=== PATIENT | male | born 1955 | race Caucasian/White ===

== ENCOUNTER 2024-07-25 10:47 | Outpatient (CLI) | payer MEDICARE, BC, SELFPAY | END 2024-07-25 10:48 | disposition home or self-care (01) | PROVIDERS: PCP Registered Nurse; Visit Provider Registered Nurse | DX: Z00.00 Encounter for general adult medical examination without abnormal findings (principal); E03.9 Hypothyroidism, unspecified; E78.5 Hyperlipidemia, unspecified; I10 Essential (primary) hypertension; D75.1 Secondary polycythemia; R97.20 Elevated prostate specific antigen [PSA]; M10.9 Gout, unspecified; Z12.5 Encounter for screening for malignant neoplasm of prostate | CPT/HCPCS: 80048; 80061; 84439; 84443; 84550; G0103 ==

== ENCOUNTER 2024-07-30 17:24 | Outpatient (CLI) | payer MEDICARE, BC, SELFPAY | END 2024-07-30 17:25 | disposition home or self-care (01) | LOC: AMB 08-02 03:43 | PROVIDERS: PCP Registered Nurse; Visit Provider Emergency Medicine | DX: R53.1 Weakness (principal) | CPT/HCPCS: A0425; A0427 ==

== ENCOUNTER 2024-07-30 17:54 | Inpatient (IN) | payer MEDICARE, BC, SELFPAY ==
[2024-07-30] VITALS (25 sets, daily range): BP systolic 109–147; BP diastolic 71–96; PULSE 101–121; RESP 20–24; TEMP 36.9–39.8; O2SAT 91–96; BMI 31.1
--- NOTE | 2024-07-30 18:11 | ED_ITS ---
HPI - General Adult General Date Seen: 07/30/24 Chief complaint: Weakness Stated complaint: Weakness Time Seen by Provider: 07/30/24 18:10 History of Present Illness HPI narrative: 69-year-old gentleman brought to the ER today by EMS for evaluation of weakness and feeling ill. He is noted to be febrile to a temperature of 105? F by temporal thermometer. 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 Per clinic records he saw Dr. Castro in February 2023 for a checkup and med manag ement. According to those notes he does not drive and relies on his neighbor to bring him medications and food. No family support. History of alcoholism, not currently drinking at that time. Wheelchair-bound due to ataxia. He had a checkup in clinic 07/25/24. Was apparently out of his Synthroid. Taking his other meds. Labs showed WBC of 10.3, hemoglobin 18.5 He he is brought to the ER today by EMS. Apparently his neighbors, who check on him to bring him food found in today very weak and confused. History for the patient is that he says ?I think I am having a stroke. ?. It sounds like he says generalized (but nonfocal ) weakness beginning a few days ago, possibly on Sunday. A I and we note that he has a fever. He does not know how long it has been going on. He knows that he is in the [facility] [address] any knows that the month is July but does not know the day of the week. He he is not able to answer many questions are described as good story of his illness. When asked directly he says he does not have a headache. He does not have chest pain. He does not have any trouble breathing. He has not have a sore throat. No cough. No abdominal pain. He has been nauseous but no vomiting. He notes that his urine has been giving him problems since last week. It sounds like he has been having either urinary retention or urinary hesitancy. He thinks his urine has been a normal caller. He does not think he has been having any diarrhea. No known falls. He does not take any anticoagulants. History from Neighbor/Friend Nicho Was normal on Sunday to go to annual check up. seemed weak since sunday with multiple ground level falls. neighbors have had to help him up on Sunday. increasing, weakness. generally still sharp mind but has been more confused this weekend. Neighbor has financial power of state's attorney, but not medical POA. Related Data Previous Rx's ?Medication ?Instructions ?Recorded allopurinol 300 mg tablet 300 mg PO DAILY #90 tabs 07/25/24 amlodipine 10 mg tablet 10 mg PO DAILY #90 tabs 07/25/24 hydrochlorothiazide 25 mg tablet 25 mg PO DAILY #90 tabs 07/25/24 potassium chloride 10 mEq 20 meq (2 x 10 mEq) PO QDAY #180 07/25/24 capsule,extended release caps rosuvastatin 10 mg tablet 10 mg PO QPM #90 tabs 07/25/24 Allergies Allergy/AdvReac Type Severity Reaction Status Date / Time No Known Allergies Allergy Unknown Unknown Verified 07/25/24 10:16 [facility] Medical History Chronic kidney disease (CKD) stage G3b/A1, moderately decreased glomerular filtration rate (GFR) between 30-44 mL/min/1.73 square meter and albuminuria creatinine ratio less than 30 mg/g ?N18.32 - Chronic kidney disease, stage 3b (ICD-10) 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 (ICD-10) Multiple lacunar infarcts ?I63.81 - Other cerebral infarction due to occlusion or stenosis of small artery (ICD-10) Hypertensive emergency without congestive heart failure ?I16.1 - Hypertensive emergency (ICD-10) 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 ?G31.2 - Degeneration of nervous system due to alcohol (ICD-10) ?F10.20 - Alcohol dependence, uncomplicated (ICD-10) Alcoholic encephalopathy ?G31.2 - Degeneration of nervous system due to alcohol (ICD-10) Hypothyroid ?E03.9 - Hypothyroidism, unspecified (ICD-10) Gout ?M10.9 - Gout, unspecified (ICD-10) Hyperlipidemia ?E78.5 - Hyperlipidemia, unspecified (ICD-10) Hypertension ?I10 - Essential (primary) hypertension (ICD-10) Social History Narrative: Single, no kids, 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, 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, nonsmoker, gets assistance from his neighbors Smoking Status: Never smoker Do you use any of these nicotine containing products: None How often do you have a drink containing alcohol: never How often do you have six or more drinks on one occasion: Never AUDIT-C Alcohol total score: 0 Non-prescribed substance use: denies use Little interest or pleasure in doing things: not at all Feeling down, depressed, or hopeless: not at all Exam Const: Vital Signs, click to edit/add: Vital Signs - 24 hr 07/30/24 18:06 07/30/24 18:10 07/30/24 18:33 Temperature 103.6 F H Pulse Rate 121 H Pulse Rate [Right Pulse Oximeter] 119 H Respiratory Rate 20 Blood Pressure 127/88 Blood Pressure [Ri ght Upper Arm] 147/91 H Pulse Oximetry 96 95 Oxygen Delivery Me thod Room Air 07/30/24 18:34 07/30/24 18:46 07/30/24 19:10 Temperature Pulse Rate 115 H 114 H 119 H Pulse Rate [Right Pulse Oximeter] Respiratory Rate Blood Pressure Blood Pressure [Ri ght Upper Arm] Pulse Oximetry 94 94 93 Oxygen Delivery Me thod 07/30/24 19:15 07/30/24 19:17 07/30/24 19:30 Temperature Pulse Rate 115 H 114 H 112 H Pulse Rate [Right Pulse Oximeter] Respiratory Rate Blood Pressure 141/96 H Blood Pressure [Ri ght Upper Arm] Pulse Oximetry 95 96 95 Oxygen Delivery Me thod 07/30/24 19:31 07/30/24 19:32 07/30/24 19:45 Temperature Pulse Rate 112 H 112 H 112 H Pulse Rate [Right Pulse Oximeter] Respiratory Rate Blood Pressure 124/80 Blood Pressure [Ri ght Upper Arm] Pulse Oximetry 95 95 93 Oxygen Delivery Me thod Course Vital Signs Vital signs: Initial Vital Signs Pulse Rate 119 H 07/30/24 18:06 Respiratory Rate 20 07/30/24 18:06 Blood Pressure 147/91 H 07/30/24 18:06 Blood Pressure Mean 109 H 07/30/24 18:06 Blood Pressure Position Sitting 07/30/24 18:06 Pulse Oximetry 96 07/30/24 18:06 Oxygen Delivery Method Room Air 07/30/24 18:06 Vital Signs Pulse Rate 119 H 07/30/24 18:06 Respiratory Rate 20 07/30/24 18:06 Blood Pressure 147/91 H 07/30/24 18:06 Pulse Oximetry 96 07/30/24 18:06 Oxygen Delivery Method Room Air 07/30/24 18:06 Temperature 103.6 F H 07/30/24 18:10 Pulse Rate 112 H 07/30/24 19:45 Respiratory Rate 20 07/30/24 18:06 Blood Pressure 124/80 07/30/24 19:31 Pulse Oximetry 93 07/30/24 19:45 Oxygen Delivery Method Room Air 07/30/24 18:06 Medications Administered Medications: Generic Name Dose Route Start Last Admin Trade Name Freq PRN Reason Stop Dose Admin Potassium Bicarbonate 25 meq 07/30/24 20:31 07/30/24 20:39 Potassium Bicarb 25 Meq Effervescent Tab PO 07/30/24 20:32 25 meq ONCE ONE Administration Discontinued Medications Generic Name Dose Route Start Last Admin Trade Name Freq PRN Reason Stop Dose Admin Acetaminophen 1,000 mg 07/30/24 18:29 07/30/24 19:10 Acetaminophen 500 Mg Tablet PO 07/30/24 18:30 1,000 mg ONCE ONE Administration Folic Acid 1 mg 07/30/24 18:32 07/30/24 19:48 Folic Acid 5 Mg/Ml Inj IV 07/30/24 18:33 1 mg ONCE ONE Administration Ceftriaxone Sodium 2 gm/ 100 mls @ 200 mls/hr 07/30/24 18:29 07/30/24 19:40 Sodium Chloride IVPB 07/30/24 18:30 Infused ONCE ONE Infusion Sodium Chloride 1,000 mls @ 1,000 mls/hr 07/30/24 18:30 07/30/24 19:48 0.9 % Sodium Chloride 1000 Ml IV 07/30/24 19:29 Infused .Q1H UBALDO Infusion Thiamine HCl 250 mg/ Sodium 102.5 mls @ 102.5 mls/hr 07/30/24 18:33 07/30/24 19:47 Chloride IVPB 07/30/24 18:34 102.5 mls/hr ONCE ONE Administration Medical Decision Making MDM Narrative Medical decision making narrative: 69-year-old gentleman presenting to the ER today by EMS from his home for evaluation of confusion, generalized weakness, and fever. History is somewhat limited here because of the patient's confusion but it sounds like he has probably been sick for 4 or 5 days home. He has a history of Wernicke-Korsakoff syndrome, cerebellar ataxia, and relies on his neighbors for food and medications. Apparently they came to check on him today and found him abnormal so the ambulance brought him in here. 1. Fever. Suspect likely infection and sepsis. Urinalysis is abnormal and would suspect urosepsis. Started on Rocephin 2 g IV here in the ER. No prior urine cultures to guide antimicrobial therapy selection. Blood culture pending. At this point protocol is to obtain 1 blood culture per patient due to current severe shortage of blood culture test bottles. Laboratory workup shows leukocytosis. He has a fever and tachycardia and leukocytosis and does meet SIRS criteria. Blood pressure is normal. No hypotension or shock. Venous lactic is 2.4, elevated but not alarming. Repeat lactic after IV fluids is improved to 0.9. In addition to antibiotics to treat his infection, I have also ordered IV fluids. Estimated weight is 100 kg. I ordered initial 2 L bolus. He also received an additional L with his thiamine and folate. COVID negative. Chest x-ray negative. No abdominal pain. Did seem to have a mildly protuberant abdomen, but not tympanic. With history of liver disease consider possible ascites or SBP. On my bedside ultrasound though, no ascites is visualized. 2. Neuro. Does have seeming confusion. It is not clear what his baseline is. However, although it sounds like he is able to function at home alone. He only relies on his neighbor's so they can help him drive and bring him food. He does have some confusion here which I suspect represents an acute delirium. Head CT negative Sodium 134. Glucose 142. Anion gap is mildly wide 16. Bicarb slightly low at 19. 3. potassium low at 2.8. IV potassium and oral potassium supplements ordered here in the ER. QT interval normal at 436. 4. EKG shows sinus tachycardia with a right bundle-branch block. No hypoxia. Suspect tachycardia is related to fever and sepsis. 5. Liver: has h/o alcohol abuse. Apparently sober for years. Alcohol negative. No terminal a sinus to suggest alcohol withdrawal. Without clear history here we did also add on thiamine and folate. LFTs show mildly abnormal bilirubin at 1.9. AST of 60.. INR is normal. 6. Cardiac. Presented with sinus tachycardia. Denies any chest pain. EKG shows right bundle but no definite ischemia. Troponin negative. 7. His neighbor cameron and low as are his closest support. They are not medical power of state's attorney but they do have financial power of state's attorney. They bring him food and medicine. They help him pain his bills. They help him feed his cats. They will come visit him tomorrow. Discussed with hospitalist, Dr. Thorne. She will accept the patient for admission at 8:45 p.m.. She request that we add on an additional blood culture- ordered. Also add on magnesium level-ordered. Lab Data Labs: Lab Results 07/30/24 07/30/24 07/30/24 Range/Units 18:28 18:28 18:33 WBC 20.53 H (4.50-11.00) K/uL RBC 6.15 H (4.30-5.90) m/uL Hgb 18.0 H (13.5-17.5) gm/dL Hct 53.9 H (37.0-53.0) % MCV 88 (80-100) fL MCH 29 (26-34) pg MCHC 33 (32-36) gm/dL RDW Coeff of Zoe 14.7 (11.5-15.5) % Plt Count 171 (140-440) K/uL Neut % (Auto) 90.0 H (42.0-72.0) % Lymph % (Auto) 2.8 L (20-44) % [place] % (Auto) 6.8 (0.0-11.0) % Eos % (Auto) 0.0 (0.0-7.0) % Baso % (Auto) 0.0 (0.0-3.0) % Neut # (Auto) 18.50 H (1.7-7.0) K/uL Lymph # (Auto) 0.60 L (0.90-2.90) K/uL [place] # (Auto) 1.40 H (0.00-0.90) K/UL Eos # (Auto) 0.00 (0.00-0.50) K/uL Baso # (Auto) 0.00 (0.00-0.30) K/uL Abs Immat Gran (auto) 0.10 (0.00-0.30) K/uL Imm/Tot Granulo (auto) 0.4 % INR 1.06 (0.91-1.10) Sodium 134 L (135-149) mmol/L Potassium 2.8 L* (3.6-5.1) mmol/L Chloride 99 (96-114) mmol/L Carbon Dioxide 19 L (20-32) mmol/L Anion Gap 16 H (7-15) mEq/L BUN 32 H (7-30) mg/dL Creatinine 1.9 H (0.5-1.5) mg/dL Estimated GFR 38 ml/min Glucose 142 H (60-115) mg/dL Lactate 2.4 H (0.5-1.9) mmol/L Calcium 9.9 (8.4-10.6) mg/dL Total Bilirubin 1.9 H (0.1-1.5) mg/dL AST 60 H (12-35) U/L ALT 23 (4-50) U/L Alkaline Phosphatase 103 (40-150) U/L Ammonia 11.0 L (13.1-30.0) umol/L Troponin I 0.01 (0.01-0.04) ng/mL Total Protein 7.8 (6.0-8.3) g/dL Albumin 4.7 (3.3-5.0) g/dL Urine Color (Yellow) Urine Appearance (Clear) Urine pH (5.0-8.5) Ur Specific Roosevelt (1.000-1.030) Urine Protein (Negative) Urine Glucose (UA) (Negative) Urine Ketones (Negative) Urine Blood (Negative) Urine Nitrite (Negative) Urine Bilirubin (Negative) Urine Urobilinogen (0.2-1.0) Ur Leukocyte Esterase (Negative) Urine RBC (0-2) Urine WBC (0-5) Ur Squamous Epith Cells (None-Few) Urine Bacteria (None) Ethyl Alcohol Cancelled < 0.01 L SARS-CoV-2 (PCR) (Negative) Influenza Type A (PCR) (Negative) Influenza Type B (PCR) (Negative) POC Troponin I 0.04 (0.01-0.04) ng/ml 07/30/24 07/30/24 07/30/24 Range/Units 18:41 18:47 20:13 WBC (4.50-11.00) K/uL RBC (4.30-5.90) m/uL Hgb (13.5-17.5) gm/dL Hct (37.0-53.0) % MCV (80-100) fL MCH (26-34) pg MCHC (32-36) gm/dL RDW Coeff of Zoe (11.5-15.5) % Plt Count (140-440) K/uL Neut % (Auto) (42.0-72.0) % Lymph % (Auto) (20-44) % [place] % (Auto) (0.0-11.0) % Eos % (Auto) (0.0-7.0) % Baso % (Auto) (0.0-3.0) % Neut # (Auto) (1.7-7.0) K/uL Lymph # (Auto) (0.90-2.90) K/uL [place] # (Auto) (0.00-0.90) K/UL Eos # (Auto) (0.00-0.50) K/uL Baso # (Auto) (0.00-0.30) K/uL Abs Immat Gran (auto) (0.00-0.30) K/uL Imm/Tot Granulo (auto) % INR (0.91-1.10) Sodium (135-149) mmol/L Potassium (3.6-5.1) mmol/L Chloride (96-114) mmol/L Carbon Dioxide (20-32) mmol/L Anion Gap (7-15) mEq/L BUN (7-30) mg/dL Creatinine (0.5-1.5) mg/dL Estimated GFR ml/min Glucose (60-115) mg/dL Lactate 0.9 (0.5-1.9) mmol/L Calcium (8.4-10.6) mg/dL Total Bilirubin (0.1-1.5) mg/dL AST (12-35) U/L ALT (4-50) U/L Alkaline Phosphatase (40-150) U/L Ammonia (13.1-30.0) umol/L Troponin I (0.01-0.04) ng/mL Total Protein (6.0-8.3) g/dL Albumin (3.3-5.0) g/dL Urine Color Yellow (Yellow) Urine Appearance Clear (Clear) Urine pH 7.0 (5.0-8.5) Ur Specific [place] 1.020 (1.000-1.030) Urine Protein 3+ A (Negative) Urine Glucose (UA) Negative (Negative) Urine Ketones Negative (Negative) Urine Blood 3+ A (Negative) Urine Nitrite Negative (Negative) Urine Bilirubin Negative (Negative) Urine Urobilinogen 2.0 A (0.2-1.0) Ur Leukocyte Esterase 1+ A (Negative) Urine RBC 2-5 A (0-2) Urine WBC 25-50 A (0-5) Ur Squamous Epith Cells None (None-Few) Urine Bacteria Few A (None) Ethyl Alcohol SARS-CoV-2 (PCR) Negative SARS-CoV-2 (Negative) Influenza Type A (PCR) Negative PCR FLU A (Negative) Influenza Type B (PCR) Negative PCR FLU B (Negative) POC Troponin I (0.01-0.04) ng/ml Imaging Data Chest x-ray: Attestation: I have reviewed the pertinent imaging results. My impression: poor inspiration. no definite infiltrate Radiologist's impression: IMPRESSION: 1. Small lung volumes are noted with mild bibasilar atelectasis. CT scan - head: Attestation: I have reviewed the pertinent imaging results. Radiologist's impression: IMPRESSION: IMPRESSION:1. No CT evidence of acute cortical infarct. No acute intracranial hemorrhage. No other acute intracranial findings. ECG Data Attestation: I personally reviewed and interpreted this ECG as follows: Interpretation: Sinus tachycardia Rate: 119 WY: 196 QRS axis: Left axis deviation. Right bundle branch block pattern ST segment/T wave: Possible ST depression V1-V5 although could be discordant from large terminal R-wave in those leads to due his bundle-branch block. QTc: 436 Discharge Plan Discharge Clinical Impression: Acute UTI, Sepsis, Altered mental status, Acute hypokalemia Prescriptions: No Action rosuvastatin 10 mg tablet 10 mg PO QPM Qty: 90 3RF hydrochlorothiazide 25 mg tablet 25 mg PO DAILY Qty: 90 3RF amlodipine 10 mg tablet 10 mg PO DAILY Qty: 90 3RF allopurinol 300 mg tablet 300 mg PO DAILY Qty: 90 3RF potassium chloride 10 mEq capsule, extended release 20 meq PO QDAY Qty: 180 3RF Follow Up/Referrals: Shonda Olvera, AVAYA ENGINEER [Primary Care Provider] - Procedures Ultrasound FAST exam #1: Areas examined: Saldaña's pouch, spleno-renal access and Pouch of Jovani Indications: other (Fever, history of liver disease, evaluate for ascites) Exam type: limited abdominal ultrasound Finding: other (No free peritoneal fluid) Impression: normal exam Description/Findings: Negative for ascites or free peritoneal fluid.
--- NOTE | 2024-07-30 18:28 | CRLHL7_ITS ---
For Patients: As a result of the Cures Act, medical imaging exams and procedure reports are released immediately into your electronic medical record. You may view this report before your referring provider. If you have questions, please contact your health care provider. INDICATION: Fever TECHNIQUE: Chest radiograph 2 views COMPARISON: None FINDINGS: Mediastinum: The mediastinum is normal in appearance. The heart silhouette is normal in size and morphology. Lung: Small lung volumes are noted with mild bibasilar atelectasis. No sign of pleural effusion seen. No pneumothorax is identified. Bone and Soft tissue: Unremarkable for age. IMPRESSION: 1. Small lung volumes are noted with mild bibasilar atelectasis. Dictated by Alejandro Camp MD @ 07/30/2024 7:56:27 PM Dictated by: Alejandro Camp MD @ 07/30/2024 19:56:30 (Electronically Signed)
--- NOTE | 2024-07-30 18:28 | CRLHL7_ITS ---
For Patients: As a result of the Cures Act, medical imaging exams and procedure reports are released immediately into your electronic medical record. You may view this report before your referring provider. If you have questions, please contact your health care provider. INDICATION: Fever and altered mental status. TECHNIQUE: CT of the head without contrast. Coronal and sagittal reformats are included. COMPARISON: Brain MRI from 07/09/2019. FINDINGS: No CT evidence of acute cortical infarct. No loss of beasley white matter differentiation. No hyperdense vessels to suggest intracranial thrombus. No acute intracranial hemorrhage. No mass effect or midline shift. No hydrocephalus or extra-axial collections. Patchy white matter and central brainstem hypoattenuation, typical for chronic microvascular ischemic change. Anterior parafalcine ossification. No acute osseous abnormalities. Mastoid air cells and paranasal sinuses are clear. Normal soft tissues. IMPRESSION: IMPRESSION:1. No CT evidence of acute cortical infarct. No acute intracranial hemorrhage. No other acute intracranial findings. Please note that all CT scans at this facility use dose modulation, iterative reconstruction, and/or weight-based dosing when appropriate to reduce radiation dose to as low as reasonably achievable. Dictated by Dionte Jimenez MD @ 07/30/2024 7:47:49 PM (Electronically Signed)
[2024-07-30 18:35] LABS: Troponin, Point-of-Care* 0.04 ng/ml (0.01-0.04)
[2024-07-30 18:38] LABS: Lactate Sepsis w/Reflex* 2.4 mmol/L (0.5-1.9)
[2024-07-30] MEDS: 0.9 % SODIUM CHLORIDE 1000 ml 1,000 ML IV (18:40)
[2024-07-30 18:42] LABS: Hematocrit 53.9 % (37.0-53.0); Immature Granulocytes Pct Auto 0.4 %; Lymphocytes Percent Auto 2.8 % (20-44); Mean Corpuscular HGB Conc 33 gm/dL (32-36); Mean Corpuscular Hemoglobin 29 pg (26-34); Mean Corpuscular Volume 88 fL (80-100); Monocytes Percent Auto 6.8 % (0.0-11.0); Platelet Count* 171 K/uL (140-440); RDW Coefficient of Variation % 14.7 % (11.5-15.5); Red Blood Count 6.15 m/uL (4.30-5.90); White Blood Count* 20.53 K/uL (4.50-11.00)
[2024-07-30 18:49] LABS: Slide Review Reflex No
[2024-07-30 18:50] LABS: INR 1.06 (0.91-1.10); Prothrombin Time 14.5 Seconds
[2024-07-30 18:52] LABS: Ethanol* < 0.01 % (0.01-0.03)
[2024-07-30 19:03] LABS: Appearance Urine Clear (Clear); Bilirubin Urine Negative (Negative); Blood Urine 3+ (Negative); Color Urine Yellow (Yellow); Glucose Urine Negative (Negative); Ketones Urine Negative (Negative); Leukocyte Esterase Urine 1+ (Negative); Nitrite Urine Negative (Negative); Protein Urine 3+ (Negative)
[2024-07-30 19:04] LABS: Troponin I* 0.01 ng/mL (0.01-0.04)
[2024-07-30] MEDS: ACETAMINOPHEN 500 MG TABLET 1000 MG PO (19:10)
[2024-07-30] MEDS: cefTRIAXone 2 GM in 0.9 % SODIUM CHLORIDE Mini-bag 100 ML IVPB (19:12)
[2024-07-30 19:20] LABS: Bacteria Urine Few; WBC Urine 25-50 (0-5)
[2024-07-30 19:25] LABS: PCR FLU A Negative PCR FLU A (Negative); PCR FLU B Negative PCR FLU B (Negative); SARS PCR* Negative SARS-CoV-2 (Negative)
--- NOTE | 2024-07-30 19:28 | ED.NURSE ---
Crews catheter placed, pt tolerated well. Urine output of 100cc.
[2024-07-30] MEDS: THIAMINE 250 MG in 0.9 % SODIUM CHLORIDE 100 ml 100 ML 102.5 MG IVPB (19:47)
[2024-07-30 20:15] LABS: Lactate Sepsis 2 Hour 0.9 mmol/L (0.5-1.9)
[2024-07-30 20:18] LABS: Chloride* 99 mmol/L (96-114)
[2024-07-30 20:19] LABS: Albumin* 4.7 g/dL (3.3-5.0); Sodium* 134 mmol/L (135-149)
[2024-07-30 20:21] LABS: Anion Gap 16 mEq/L (7-15); Bilirubin Total* 1.9 mg/dL (0.1-1.5); Carbon Dioxide* 19 mmol/L (20-32); Creatinine* 1.9 mg/dL (0.5-1.5); Estimated Glomerular Filt Rate 38 ml/min; Total Protein* 7.8 g/dL (6.0-8.3)
[2024-07-30 20:22] LABS: Alanine Aminotransferase* 23 U/L (4-50); Alkaline Phosphatase* 103 U/L (40-150); Aspartate Amino Transferase* 60 U/L (12-35); Blood Urea Nitrogen* 32 mg/dL (7-30); Calcium* 9.9 mg/dL (8.4-10.6); Glucose* 142 mg/dL (60-115)
[2024-07-30 20:25] LABS: Potassium* 2.8 mmol/L (3.6-5.1)
[2024-07-30] MEDS: POTASSIUM BICARB 25 MEQ EFFERVESCENT TAB PO ×2 (20:39→22:31)
[2024-07-30] MEDS: POTASSIUM CHLORIDE 10 MEQ/100 ML PIGGYBACK 100 MEQ IVPB (20:49)
[2024-07-30 21:11] LABS: Magnesium* 1.6 mg/dL (1.5-2.6)
--- NOTE | 2024-07-30 21:21 | PM.IMHP1 ---
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 No corroboration from caregivers. The best we can figure out is that Daren lives alone but has neighbors, Eugenio and Yeny Linder, who checked on him today and found him weak, febrile and confused. They called EMS. However they did not present to the hospital and have been unreachable this evening. I have left a message as has the ER on their listed phone numbers. Daren is a difficult historian. He states he has been sick for a while. It is difficult to get him to focus and he answers with 1 or 2 words. He states he has not drank in 10 years, however there is H&P from 2019 where he was attempting sobriety. That was the last time he was admitted to [facility]. He does not remember that admission. On his discharge summary it was outline that he had a [place] of 16/30 in July of 2019. He did recently have an office visit with his primary care team. Shonda Olvera CNP saw him 07/25/24. Vitals were stable and it appears it was a well visit. It is known he doesn't drive and is wheel chair bound. She states: He is alert, wheel-chair bound, does not drive. His neighbors help with his cares, grocery shopping, and transportation. He feels that his is doing well, no falls, wonders if all of his medications are necessary since they really don't seem to be doing much. He no longer drinks any alcohol, also denies tobacco, marijuana, or other drug use. History significant for hypothyroid; he has his levothyroxine increased in 02/2024 and was supposed to follow up for repeat blood work, but he never got this done and since then has run out of levothyroxine so hasn't been taking it. He states he has been taking all of his other medications as directed. No gout flares recently Denies any concerns ER COURSE: Blood pressure has been stable throughout. T-max has been 103.6 ? He has been tachycardic He has acute on chronic renal impairment Moderate hypokalemia A UTI He met criteria for severe sepsis CODE STATUS: He states ?I do not know ? EMERGENCY CONTACT PLAN: Apparently Eugenio and Yeny Linder Primary Contact Name Nicho Linder Rel To Pat Friend Work Phone (Patient) [phone] I've updated the PFSH, medications and allergies in the Expanse tabs. INVESTIGATIONS: LABS/MICRO/ECG/IMAGING Arrival vital signs revealed A temp of 103.6? Pulse 104-121 Respiratory rate 16 to 20 Sats 96% on room air 74.8 kilos Labs are significant for an elevated white blood cell count at 20.53, 90% neutrophils Hemoglobin is 18.0 Platelet counts 171 INR 1.06 Electrolytes reveal a mild hyponatremia at 134, glucose 142. Creatinine 1.9 from a 1.6 baseline. BUN 32. Carbon dioxide/bicarb is low at 19. He has an anion gap barely at 16. Lactate was 2.4 and after fluid resuscitation down to 0.9 Notably his potassium was 2.8 with a low normal magnesium at 1.6 AST 60 with a normal ALT and alk-phos Ammonia level 11 Undetectable trop Normal protein and albumin UA is yellow with 3+ protein, 3+ blood, 1+ leukocyte esterase, negative nitrite. Urine white blood cells 25-50. Alcohol undetectable Negative COVID and influenza Head CT 1. No CT evidence of acute cortical infarct. No acute intracranial hemorrhage. No other acute intracranial findings. Chest x-ray Small lung volumes are noted with mild bibasilar atelectasis. REVIEW OF SYSTEMS: 12-point ROS completed with patient and negative unless otherwise stated in HPI or below. PHYSICAL EXAM: CONSTITUTIONAL: NAD, using remote to channel surf, poor eye contact/poor engagement. simple answers. denies any major concerns. VITAL SIGNS: see record. HEENT: Normocephalic, atraumatic. PERRL, EOMI, conjunctivae pink, no scleral icterus. Ears and nose externally normal. Pharynx normal. NECK: No JVD. No carotid bruit, no thyromegaly, no adenopathy. CHEST: Clear to auscultation bilaterally HEART: S1 and S2 normal. No harsh murmurs. Edema minimal. MUSCULOSKELETAL: No gross joint deformity or swelling. Can move legs on command. NEURO: Cranial nerves intact. Grossly intact. No asymmetric findings. SKIN: No rashes, petechiae, concerning changes PSYCHIATRIC: Euthymic. ADMIT TO MEDSURG: FLOOR CARE DVT: Lovenox GI: PO intake, PPI Time spent: Today I spent 75 minutes seeing the patient, discussing the patient with ER staff, reviewing Expanse and EPIC notes/diagnostics, discussing the care plan with our care time that includes social work, PT/OT, pharmacy, RT, half-way and documenting my impressions and plan in the medical record. 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 (ICD-10) Hypertensive emergency without congestive heart failure ?I16.1 - Hypertensive emergency (ICD-10) 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 ?G31.2 - Degeneration of nervous system due to alcohol (ICD-10) ?F10.20 - Alcohol dependence, uncomplicated (ICD-10) Alcoholic encephalopathy ?G31.2 - Degeneration of nervous system due to alcohol (ICD-10) Hypothyroid ?E03.9 - Hypothyroidism, unspecified (ICD-10) Gout ?M10.9 - Gout, unspecified (ICD-10) Hyperlipidemia ?E78.5 - Hyperlipidemia, unspecified (ICD-10) Hypertension ?I10 - Essential (primary) hypertension (ICD-10) Social History Narrative: Single, no kids, retired [employer], 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, nonsmoker, gets assistance from his neighbors Smoking Status: Never smoker Do you use any of these nicotine containing products: None How often do you have a drink containing alcohol: never How often do you have six or more drinks on one occasion: Never AUDIT-C Alcohol total score: 0 Non-prescribed substance use: denies use Little interest or pleasure in doing things: not at all Feeling down, depressed, or hopeless: not at all Meds Home Medications and Allergies Allergies Allergy/AdvReac Type Severity Reaction Status Date / Time No Known Allergies Allergy Unknown Unknown Verified 07/25/24 10:16 Exam Const: Vital Signs, click to edit/add: Vital Signs - 24 hr 07/30/24 18:06 07/30/24 18:10 07/30/24 18:33 Temperature 103.6 F H Pulse Rate 121 H Pulse Rate [Right Pulse Oximeter] 119 H Respiratory Rate 20 Blood Pressure 127/88 Blood Pressure [Ri ght Upper Arm] 147/91 H Pulse Oximetry 96 95 Oxygen Delivery Me thod Room Air 07/30/24 18:34 07/30/24 18:46 07/30/24 19:10 Temperature Pulse Rate 115 H 114 H 119 H Pulse Rate [Right Pulse Oximeter] Respiratory Rate Blood Pressure Blood Pressure [Ri ght Upper Arm] Pulse Oximetry 94 94 93 Oxygen Delivery Me thod 07/30/24 19:15 07/30/24 19:17 07/30/24 19:30 Temperature Pulse Rate 115 H 114 H 112 H Pulse Rate [Right Pulse Oximeter] Respiratory Rate Blood Pressure 141/96 H Blood Pressure [Ri ght Upper Arm] Pulse Oximetry 95 96 95 Oxygen Delivery Me thod 07/30/24 19:31 07/30/24 19:32 07/30/24 19:45 Temperature Pulse Rate 112 H 112 H 112 H Pulse Rate [Right Pulse Oximeter] Respiratory Rate Blood Pressure 124/80 Blood Pressure [Ri ght Upper Arm] Pulse Oximetry 95 95 93 Oxygen Delivery Me thod 07/30/24 20:00 07/30/24 20:01 07/30/24 20:15 Temperature Pulse Rate 109 H 110 H 108 H Pulse Rate [Right Pulse Oximeter] Respiratory Rate Blood Pressure 111/72 Blood Pressure [Ri ght Upper Arm] Pulse Oximetry 92 92 92 Oxygen Delivery Me thod 07/30/24 20:30 07/30/24 20:31 07/30/24 20:44 Temperature 100.4 F H Pulse Rate 104 H 104 H Pulse Rate [Right Pulse Oximeter] Respiratory Rate Blood Pressure 109/71 Blood Pressure [Ri ght Upper Arm] Pulse Oximetry 91 92 Oxygen Delivery Me thod 07/30/24 20:45 09/25/24 21:11 Temperature Pulse Rate 103 H Pulse Rate [Right Pulse Oximeter] Respiratory Rate 22 Blood Pressure Blood Pressure [Ri ght Upper Arm] Pulse Oximetry 94 Oxygen Delivery [facility] Hospitalist - H&P: Result Labs Labs: Short CBC 07/30/24 Range/Units 18:28 WBC 20.53 H (4.50-11.00) K/uL Hgb 18.0 H (13.5-17.5) gm/dL Hct 53.9 H (37.0-53.0) % Plt Count 171 (140-440) K/uL BMP 07/30/24 18:28 Sodium 134 L Potassium 2.8 L* Chloride 99 Carbon Dioxide 19 L BUN 32 H Creatinine 1.9 H Glucose 142 H Calcium 9.9 Cardiac Enzymes 07/30/24 Range/Units 18:28 Troponin I 0.01 (0.01-0.04) ng/mL Liver Function 07/30/24 Range/Units 18:28 Total Bilirubin 1.9 H (0.1-1.5) mg/dL AST 60 H (12-35) U/L ALT 23 (4-50) U/L Alkaline Phosphatase 103 (40-150) U/L Albumin 4.7 (3.3-5.0) g/dL Urine 07/30/24 Range/Units 18:47 Urine Color Yellow (Yellow) Urine Appearance Clear (Clear) Urine pH 7.0 (5.0-8.5) Ur Specific [place] 1.020 (1.000-1.030) Urine Protein 3+ A (Negative) Urine Glucose (UA) Negative (Negative) Assessment and Plan Assessment and plan (1) Severe sepsis: Problem comment: 2 SIRS criteria easily met (temp, HR, RR) elevated lactate UTI -fluids. Jack. -general support; antibiotics Status: Acute (2) Acute UTI: Problem comment: rocephin 2 grams IV q24 until cultures return fluids jack Status: Acute (3) Altered mental status: Problem comment: -likely mostly baseline cognitive level with mild delirium secondary to fever/infection Status: Acute (4) Acute hypokalemia: Problem comment: oral and IV replacement; follow Status: Acute (5) Wernicke-Korsakoff syndrome: Problem comment: -noted in history -unclear if he is drinking or not; alcohol level zero; checking drug screen. likely baseline dementia/cognitive decline. 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 will add T3 to admit labs. recommend f/u as outpatient Status: Acute (10) Gout: Problem comment: allopurinol 300mg - last filled on 07/14/24 uric acid pending Status: Acute (11) Hyperlipidemia: Problem comment: rosuvastatin 10mg last filled on 07/11/24 Status: Acute (12) Hypertension: Problem comment: hctz, potassium, amlodipine all filled 07/29 Status: Acute (13) Polycythemia: Problem comment: noted previously; outpatient workup Status: Acute
--- NOTE | 2024-07-30 21:29 | ED.NURSE ---
Pt report given to janel RN, pt to room 245.
[2024-07-30 21:56] LABS: HCO3 VBG 25 mmol/L (21-28); PCO2 VBG 32 mmHG (40-50); PO2 VBG 42.6 mmHG (25-47); pH VBG 7.486 (7.32-7.43)
[2024-07-30 22:03] LABS: Amphetamine Screen Urine Negative (Negative); Barbiturate Screen Urine Negative (Negative); Benzodiazepines Screen Urine Negative (Negative); Cannabinoid Screen Urine Negative (Negative); Cocaine Screen Urine Negative (Negative); Methadone Screen Urine Negative (Negative); Methamphetamines Screen Urine Negative (Negative); Opiate Screen Urine Negative (Negative); Oxycodone Screen Urine Negative (Negative); Phencyclidine Screen Urine Negative (Negative); Tricyclic Antidepressant Urine Negative (Negative)
[2024-07-30 22:04] LABS: Hemoglobin A1C* 5.3 % (0-5.6)
[2024-07-30 22:17] LABS: C Reactive Protein* 14.8 mg/dL (0.5-1.0)
[2024-07-30] MEDS: 5 % DEX/0.9 SOD CHL+KCL 20 mEq 1,000 ML 125 ML IV (22:31)
[2024-07-30] MEDS: PANTOPRAZOLE SODIUM 40 MG INJ IVP (22:32)
[2024-07-30] MEDS: ENOXAPARIN 40 MG/0.4 ML INJ SUBCUT (22:32)
[2024-07-31] VITALS (14 sets, daily range): BP systolic 104–137; BP diastolic 64–87; PULSE 91–117; RESP 18–24; TEMP 36.9–39.2; O2SAT 92–98
[2024-07-31] MEDS: ACETAMINOPHEN 325 MG TABLET PO ×3 (04:56→23:42)
[2024-07-31] MEDS: 5 % DEX/0.9 SOD CHL+KCL 20 mEq 1,000 ML 125 ML IV ×3 (05:59→23:52)
[2024-07-31 06:24] LABS: HCO3 VBG 24 mmol/L (21-28); PCO2 VBG 31 mmHG (40-50); PO2 VBG 63.5 mmHG (25-47); pH VBG 7.494 (7.32-7.43)
[2024-07-31 06:27] LABS: Basophils Percent Auto 0.1 % (0.0-3.0); Hematocrit 48.2 % (37.0-53.0); Hemoglobin* 16.2 gm/dL (13.5-17.5); Immature Granulocytes Pct Auto 0.5 %; Lymphocytes Percent Auto 2.7 % (20-44); Mean Corpuscular HGB Conc 34 gm/dL (32-36); Mean Corpuscular Hemoglobin 30 pg (26-34); Mean Corpuscular Volume 88 fL (80-100); Monocytes Percent Auto 8.6 % (0.0-11.0); Neutrophils Percent Auto 88.1 % (42.0-72.0); Platelet Count* 121 K/uL (140-440); RDW Coefficient of Variation % 14.1 % (11.5-15.5); Slide Review Reflex No; White Blood Count* 16.45 K/uL (4.50-11.00)
[2024-07-31] MEDS: OMEPRAZOLE 20 MG CAPSULE DR 40 MG PO (06:48)
[2024-07-31 07:00] LABS: Albumin* 3.7 g/dL (3.3-5.0); Chloride* 104 mmol/L (96-114); Sodium* 135 mmol/L (135-149)
[2024-07-31 07:03] LABS: Alkaline Phosphatase* 79 U/L (40-150); Anion Gap 9 mEq/L (7-15); Aspartate Amino Transferase* 59 U/L (12-35); Bilirubin Direct* 0.4 mg/dL (0.0-0.5); Bilirubin Total* 1.1 mg/dL (0.1-1.5); Blood Urea Nitrogen* 25 mg/dL (7-30); Carbon Dioxide* 22 mmol/L (20-32); Creatinine* 1.6 mg/dL (0.5-1.5); Est. Creatinine Clearance* 41.89; Estimated Glomerular Filt Rate 47 ml/min; Glucose* 159 mg/dL (60-115); Total Protein* 6.3 g/dL (6.0-8.3)
[2024-07-31 07:04] LABS: Alanine Aminotransferase* 21 U/L (4-50); Calcium* 8.6 mg/dL (8.4-10.6); Phosphorus* 1.6 mg/dL (2.5-4.5)
[2024-07-31 07:06] LABS: Potassium* 2.9 mmol/L (3.6-5.1)
[2024-07-31 07:14] LABS: Procalcitonin* 1.57 ng/mL (<0.50)
[2024-07-31] MEDS: POTASSIUM BICARB 25 MEQ EFFERVESCENT TAB 50 MEQ PO (07:51)
--- NOTE | 2024-07-31 08:02 | PC.NURSE ---
END OF SHIFT NOTE: A&O. BYRD IN PLACE AND PATENT. TELE=SINUS TACHYCARDIA. TMAX 100.8 ORALLY; PRN ACETAMINOPHEN ADMINISTERED. PT DENIES PAIN. UNEVENTFUL SHIFT.
[2024-07-31 08:25] LABS: C Reactive Protein* 15.8 mg/dL (0.5-1.0)
--- NOTE | 2024-07-31 11:06 | PM.IMPN1 ---
Progress Note: A&P Assessment and plan (1) Severe sepsis: Problem details: 2 SIRS criteria easily met (temp, HR, RR) elevated lactate UTI -fluids. Jack. -general support; antibiotics 07/30/24: Improved. Still intermittent temperature elevations as high as 100.8. No longer spiking fevers as high as 103.6 as he had on admission. Status: Acute (2) Acute UTI: Problem details: rocephin 2 grams IV q24 until cultures return fluids jack 07/31/24: Continue with current plan. Await urine culture results. Status: Acute (3) Altered mental status: Problem details: -likely mostly baseline cognitive level with mild delirium secondary to fever/infection 07/31/24: Aside from baseline altered speech secondary to prior strokes, mentation is much improved. Status: Acute (4) Acute hypokalemia: Problem details: oral and IV replacement; follow 07/31/24: Continue with replacement and monitoring Status: Acute (5) Wernicke-Korsakoff syndrome: Problem details: -noted in history -unclear if he is drinking or not; alcohol level zero; checking drug screen. likely baseline dementia/cognitive decline. 07/31/24: Patient indicates he has not been drinking alcohol for about 10 years. Patient caregiver and neighbor, Eugenio, corroborates. 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 He reviewed impression and recommendations with patient. Answered his questions. He is agreeable. 2. Discussed likely need for transitional care services with rehabilitation when ready to be discharged from hospital and before he returns home. He is agreeable to this at this time. 3. Discussed the above with patient's neighbor in primary caregiver, Eugenio, who is agreeable. 4. I did discuss with our adoption social worker who will initiate efforts to find appropriate tcu. 5. Bedside swallowing eval today undertaken with recommendation of level 6 diet and drinking from the cup not from a straw. Time Spent With Patient Total time spent: 50 minutes Subjective Date Seen: 07/31/24 Interval history: Hospital day 2. 69-year-old man presented with weakness that had been evolving for the past week, increased number of falls at home, fever. In the course of evaluating him he was found to have a urinary tract infection with sepsis. Was treated with IV fluids and started on IV ceftriaxone. Is difficult to get a substantive history from the patient. A neighbor was checking in on him and called EMS to bring him in for further assessment. We have left messages for a neighbor to call in discussed with us any concerns. We have yet to hear back from the neighbor. The name of the neighbor is Eugenio, and his cell phone number is [phone]. I was able to eventually reach Eugenio at 11:20 a.m. today. Eugenio is the neighbor who lives 1 house away from Daren. Eugenio and his Yeny are Daren's primary caregivers. Mariza is also power of consumer attorney for finances. Daren has not specified a power of consumer attorney for healthcare thus far. Eugenio notes that the patient has become increasingly weak over the last 5-7 days. Eugenio in [place] have had to help Daren after falls on at least 2 occasions over the past week. When they assessed Daren yesterday afternoon they notice that he was even more weak and confused and thus they arranged for EMS to bring him in for further assessment in the hospital. Their concern was that maybe he might be having another stroke. Remarkably Daren indicates he starting to feel little better today. Does not feel as weak. Appetite is improving. Tells me he normally walks with a walker at home. He acknowledges he has had a few more falls over the last week but tells me he is able to get up on his own. Exam Narrative: Exam Narrative: Examine him in his hospital room. Appears comfortable and in no acute distress. Eating and drinking without coughing. While I am able to have a conversation with him, he often answers slowly and not completely. Otherwise is alert and oriented to self, place, in part to time, in part to situation. Lungs are clear to auscultation. No CVA tenderness to percussion. Heart tones with regular rhythm, tachycardia. Abdomen is obese with active bowel sounds, soft, nontender. Extremities with trace edema. Const: Vital Signs, click to edit/add: Vital Signs - 24 hr 07/30/24 18:06 07/30/24 18:10 07/30/24 18:33 Temperature 103.6 F H Pulse Rate 121 H Pulse Rate [Pulse Oximeter] Pulse Rate [Right Pulse Oximeter] 119 H Respiratory Rate 20 Blood Pressure 127/88 Blood Pressure [Le ft Arm] Blood Pressure [Ri ght Upper Arm] 147/91 H Pulse Oximetry 96 95 Oxygen Delivery Me thod Room Air 07/30/24 18:34 07/30/24 18:46 07/30/24 19:10 Temperature Pulse Rate 115 H 114 H 119 H Pulse Rate [Pulse Oximeter] Pulse Rate [Right Pulse Oximeter] Respiratory Rate Blood Pressure Blood Pressure [Le ft Arm] Blood Pressure [Ri ght Upper Arm] Pulse Oximetry 94 94 93 Oxygen Delivery Me thod 07/30/24 19:15 07/30/24 19:17 07/30/24 19:30 Temperature Pulse Rate 115 H 114 H 112 H Pulse Rate [Pulse Oximeter] Pulse Rate [Right Pulse Oximeter] Respiratory Rate Blood Pressure 141/96 H Blood Pressure [Le ft Arm] Blood Pressure [Ri ght Upper Arm] Pulse Oximetry 95 96 95 Oxygen Delivery Me thod 07/30/24 19:31 07/30/24 19:32 07/30/24 19:45 Temperature Pulse Rate 112 H 112 H 112 H Pulse Rate [Pulse Oximeter] Pulse Rate [Right Pulse Oximeter] Respiratory Rate Blood Pressure 124/80 Blood Pressure [Le ft Arm] Blood Pressure [Ri ght Upper Arm] Pulse Oximetry 95 95 93 Oxygen Delivery Me thod 07/30/24 20:00 07/30/24 20:01 07/30/24 20:15 Temperature Pulse Rate 109 H 110 H 108 H Pulse Rate [Pulse Oximeter] Pulse Rate [Right Pulse Oximeter] Respiratory Rate Blood Pressure 111/72 Blood Pressure [Le ft Arm] Blood Pressure [Ri ght Upper Arm] Pulse Oximetry 92 92 92 Oxygen Delivery Me thod 07/30/24 20:30 07/30/24 20:31 07/30/24 20:44 Temperature 100.4 F H Pulse Rate 104 H 104 H Pulse Rate [Pulse Oximeter] Pulse Rate [Right Pulse Oximeter] Respiratory Rate Blood Pressure 109/71 Blood Pressure [Le ft Arm] Blood Pressure [Ri ght Upper Arm] Pulse Oximetry 91 92 Oxygen Delivery Me thod 07/30/24 20:45 07/30/24 21:00 07/30/24 21:02 Temperature Pulse Rate 103 H 101 H 102 H Pulse Rate [Pulse Oximeter] Pulse Rate [Right Pulse Oximeter] Respiratory Rate Blood Pressure 110/72 Blood Pressure [Le ft Arm] Blood Pressure [Ri ght Upper Arm] Pulse Oximetry 94 91 91 Oxygen Delivery Me thod 07/30/24 21:11 07/30/24 21:15 07/30/24 21:25 Temperature 98.4 F Pulse Rate 101 H Pulse Rate [Pulse Oximeter] Pulse Rate [Right Pulse Oximeter] Respiratory Rate 22 24 Blood Pressure Blood Pressure [Le ft Arm] 127/82 Blood Pressure [Ri ght Upper Arm] Pulse Oximetry 91 95 Oxygen Delivery Me thod Room Air 07/30/24 21:52 07/30/24 22:58 07/31/24 00:25 Temperature Pulse Rate Pulse Rate [Pulse Oximeter] Pulse Rate [Right Pulse Oximeter] Respiratory Rate 24 Blood Pressure Blood Pressure [Le ft Arm] Blood Pressure [Ri ght Upper Arm] Pulse Oximetry 95 93 [facility] Room [facility] 07/31/24 00:25 07/31/24 00:25 07/31/24 00:55 Temperature 98.9 F Pulse Rate 116 H Pulse Rate [Pulse Oximeter] 112 H Pulse Rate [Right Pulse Oximeter] Respiratory Rate 20 22 Blood Pressure Blood Pressure [Le ft Arm] 132/80 Blood Pressure [Ri ght Upper Arm] Pulse Oximetry 93 Oxygen Delivery Ar thod Room Air 07/31/24 04:45 07/31/24 04:56 07/31/24 07:00 Temperature 100.8 F H 100.8 F H Pulse Rate Pulse Rate [Pulse Oximeter] 117 H Pulse Rate [Right Pulse Oximeter] Respiratory Rate 20 Blood Pressure Blood Pressure [Le ft Arm] 137/83 Blood Pressure [Ri ght Upper Arm] Pulse Oximetry 92 92 Oxygen Delivery Ar thod Room Air 07/31/24 07:00 07/31/24 07:00 Temperature 99.8 F H Pulse Rate 91 Pulse Rate [Pulse Oximeter] 93 Pulse Rate [Right Pulse Oximeter] Respiratory Rate 18 Blood Pressure Blood Pressure [Le ft Arm] 104/64 Blood Pressure [Ri ght Upper Arm] Pulse Oximetry 92 Oxygen Delivery Ar thod Room Air Labs Labs: Laboratory Results - last 24 hr 07/30/24 07/30/24 07/30/24 18:28 18:28 18:33 WBC 20.53 H RBC 6.15 H Hgb 18.0 H Hct 53.9 H MCV 88 MCH 29 MCHC 33 RDW Coeff of Zoe 14.7 Plt Count 171 Neut % (Auto) 90.0 H Lymph % (Auto) 2.8 L Sibley % (Auto) 6.8 Eos % (Auto) 0.0 Baso % (Auto) 0.0 Neut # (Auto) 18.50 H Lymph # (Auto) 0.60 L Sibley # (Auto) 1.40 H Eos # (Auto) 0.00 Baso # (Auto) 0.00 Abs Immat Gran (auto) 0.10 Imm/Tot Granulo (auto) 0.4 INR 1.06 VBG pH 7.486 H VBG pCO2 32 L VBG pO2 42.6 VBG HCO3 25 Sodium 134 L Potassium 2.8 L* Chloride 99 Carbon Dioxide 19 L Anion Gap 16 H BUN 32 H Creatinine 1.9 H Estimated Creat Clear Estimated GFR 38 Glucose 142 H Hemoglobin A1c 5.3 Lactate 2.4 H Calcium 9.9 Phosphorus Magnesium Total Bilirubin 1.9 H Direct Bilirubin AST 60 H ALT 23 Alkaline Phosphatase 103 Ammonia 11.0 L Troponin I 0.01 C-Reactive Protein 14.8 H Total Protein 7.8 Albumin 4.7 Procalcitonin 0.80 H Urine Color Urine Appearance Urine pH Ur Specific Cutler Urine Protein Urine Glucose (UA) Urine Ketones Urine Blood Urine Nitrite Urine Bilirubin Urine Urobilinogen Ur Leukocyte Esterase Urine RBC Urine WBC Ur Squamous Epith Cells Urine Bacteria Urine Opiates Screen Ur Oxycodone Screen Urine Methadone Screen Ur Barbiturates Screen U Tricyclic Antidepress Ur Phencyclidine Scrn Ur Amphetamines Screen U Methamphetamines Scrn U Benzodiazepines Scrn Urine Cocaine Screen U Marijuana (THC) Screen Ur Drug Screen Comment Ethyl Alcohol Cancelled < 0.01 L SARS-CoV-2 (PCR) Influenza Type A (PCR) Influenza Type B (PCR) Lab Acknowledgement POC Troponin I 0.04 07/30/24 07/30/24 07/30/24 18:41 18:47 20:13 WBC RBC Hgb Hct MCV MCH MCHC RDW Coeff of Zoe Plt Count Neut % (Auto) Lymph % (Auto) Sibley % (Auto) Eos % (Auto) Baso % (Auto) Neut # (Auto) Lymph # (Auto) Sibley # (Auto) Eos # (Auto) Baso # (Auto) Abs Immat Gran (auto) Imm/Tot Granulo (auto) INR VBG pH VBG pCO2 VBG pO2 VBG HCO3 Sodium Potassium Chloride Carbon Dioxide Anion Gap BUN Creatinine Estimated Creat Clear Estimated GFR Glucose Hemoglobin A1c Lactate 0.9 Calcium Phosphorus Magnesium Total Bilirubin Direct Bilirubin AST ALT Alkaline Phosphatase Ammonia Troponin I C-Reactive Protein Total Protein Albumin Procalcitonin Urine Color Yellow Urine Appearance Clear Urine pH 7.0 Ur Specific Cutler 1.020 Urine Protein 3+ A Urine Glucose (UA) Negative Urine Ketones Negative Urine Blood 3+ A Urine Nitrite Negative Urine Bilirubin Negative Urine Urobilinogen 2.0 A Ur Leukocyte Esterase 1+ A Urine RBC 2-5 A Urine WBC 25-50 A Ur Squamous Epith Cells None Urine Bacteria Few A Urine Opiates Screen Ur Oxycodone Screen Urine Methadone Screen Ur Barbiturates Screen U Tricyclic Antidepress Ur Phencyclidine Scrn Ur Amphetamines Screen U Methamphetamines Scrn U Benzodiazepines Scrn Urine Cocaine Screen U Marijuana (THC) Screen Ur Drug Screen Comment Ethyl Alcohol SARS-CoV-2 (PCR) Negative SARS-CoV-2 Influenza Type A (PCR) Negative PCR FLU A Influenza Type B (PCR) Negative PCR FLU B Lab Acknowledgement POC Troponin I 07/30/24 07/30/24 07/30/24 20:37 21:43 Unknown WBC RBC Hgb Hct MCV MCH MCHC RDW Coeff of Zoe Plt Count Neut % (Auto) Lymph % (Auto) Sibley % (Auto) Eos % (Auto) Baso % (Auto) Neut # (Auto) Lymph # (Auto) Sibley # (Auto) Eos # (Auto) Baso # (Auto) Abs Immat Gran (auto) Imm/Tot Granulo (auto) INR VBG pH VBG pCO2 VBG pO2 VBG HCO3 Sodium Potassium Chloride Carbon Dioxide Anion Gap BUN Creatinine Estimated Creat Clear Estimated GFR Glucose Hemoglobin A1c Lactate Calcium Phosphorus Magnesium 1.6 Total Bilirubin Direct Bilirubin AST ALT Alkaline Phosphatase Ammonia Troponin I C-Reactive Protein Total Protein Albumin Procalcitonin Urine Color Urine Appearance Urine pH Ur Specific Cutler Urine Protein Urine Glucose (UA) Urine Ketones Urine Blood Urine Nitrite Urine Bilirubin Urine Urobilinogen Ur Leukocyte Esterase Urine RBC Urine WBC Ur Squamous Epith Cells Urine Bacteria Urine Opiates Screen Negative Ur Oxycodone Screen Negative Urine Methadone Screen Negative Ur Barbiturates Screen Negative U Tricyclic Antidepress Negative Ur Phencyclidine Scrn Negative Ur Amphetamines Screen Negative U Methamphetamines Scrn Negative U Benzodiazepines Scrn Negative Urine Cocaine Screen Negative U Marijuana (THC) Screen Negative Ur Drug Screen Comment See Note Ethyl Alcohol SARS-CoV-2 (PCR) Influenza Type A (PCR) Influenza Type B (PCR) Lab Acknowledgement Test Added POC Troponin I 07/31/24 05:53 WBC 16.45 H RBC 5.50 Hgb 16.2 Hct 48.2 MCV 88 MCH 30 MCHC 34 RDW Coeff of Zoe 14.1 Plt Count 121 L Neut % (Auto) 88.1 H Lymph % (Auto) 2.7 L Sibley % (Auto) 8.6 Eos % (Auto) 0.0 Baso % (Auto) 0.1 Neut # (Auto) 14.50 H Lymph # (Auto) 0.40 L Sibley # (Auto) 1.40 H Eos # (Auto) 0.00 Baso # (Auto) 0.00 Abs Immat Gran (auto) 0.10 Imm/Tot Granulo (auto) 0.5 INR VBG pH 7.494 H VBG pCO2 31 L VBG pO2 63.5 H VBG HCO3 24 Sodium 135 Potassium 2.9 L* Chloride 104 Carbon Dioxide 22 Anion Gap 9 BUN 25 Creatinine 1.6 H Estimated Creat Clear 41.89 Estimated GFR 47 Glucose 159 H Hemoglobin A1c Lactate Calcium 8.6 Phosphorus 1.6 L Magnesium Total Bilirubin 1.1 Direct Bilirubin 0.4 AST 59 H ALT 21 Alkaline Phosphatase 79 Ammonia Troponin I C-Reactive Protein 15.8 H Total Protein 6.3 Albumin 3.7 Procalcitonin 1.57 H Urine Color Urine Appearance Urine pH Ur Specific Cutler Urine Protein Urine Glucose (UA) Urine Ketones Urine Blood Urine Nitrite Urine Bilirubin Urine Urobilinogen Ur Leukocyte Esterase Urine RBC Urine WBC Ur Squamous Epith Cells Urine Bacteria Urine Opiates Screen Ur Oxycodone Screen Urine Methadone Screen Ur Barbiturates Screen U Tricyclic Antidepress Ur Phencyclidine Scrn Ur Amphetamines Screen U Methamphetamines Scrn U Benzodiazepines Scrn Urine Cocaine Screen U Marijuana (THC) Screen Ur Drug Screen Comment Ethyl Alcohol SARS-CoV-2 (PCR) Influenza Type A (PCR) Influenza Type B (PCR) Lab Acknowledgement POC Troponin I
--- NOTE | 2024-07-31 11:18 | NUTR.NU ---
RDN with nutrition screen related to positive skin risk and swallowing issues. Patient admitted for severe sepsis, UTI and altered mental status. Current weight 201lb 6.4oz; height 5ft 7.5 in; BMI 31.1 kg/m2. No reliable weight history recently to assess. Current diet is regular. No meal intakes since admit. Per IDT, patient is wheelchair bound at baseline. Patient has swallow evaluation consult. RDN visited with patient whom reports a good appetite and a stable weight recently. He reports his usual body weight at about 200 lbs. No nutrition interventions at this time with reported good intake and stable weights. RDN will continue to monitor and follow-up prn.
[2024-07-31] MEDS: POTASSIUM CHLORIDE 10 MEQ/100 ML PIGGYBACK 100 MEQ IVPB ×4 (12:41→15:46)
[2024-07-31] MEDS: POTASSIUM CHLORIDE 10 MEQ CAPSULE ER 40 MEQ PO (12:49)
[2024-07-31 15:43] LABS: Potassium* 3.9 mmol/L (3.6-5.1)
[2024-07-31 15:46] LABS: Magnesium* 2.1 mg/dL (1.5-2.6)
--- NOTE | 2024-07-31 15:54 | PC.SOCIAL ---
Discharge planning: Pt. will likely need a SNF when ready for discharge. Facilities near [place] for availability. 1. [facility] [phone], fax#[phone] Has openings and can assess. 2. [facility] Rwfvqt-[phone], Message left on availability 3. [facility]- [phone], Message left on availability
[2024-07-31] MEDS: cefTRIAXone 2 GM in 0.9 % SODIUM CHLORIDE Mini-bag 100 ML IVPB (18:39)
--- NOTE | 2024-07-31 19:52 | PC.NURSE ---
Pt is alert and oriented. Up with ceiling lift to recliner to breakfast. Attempted with max assist two and gait belt to pivot from recliner to bed, but pt knees buckled and pt did not tolerate. Suggested to resume using ceiling lift. Incontinent of bowel in bed, pt states he passes stool in his underwear at home, baseline. Declined lunch and ate one bite of supper. Bed alarm on. Pt had attempted to get out of chair independently but placed in bed with assist of 4. Pt had a fever present at 1300, Tylenol administered, fever resolved. ?
[2024-07-31] MEDS: ENOXAPARIN 40 MG/0.4 ML INJ SUBCUT (20:33)
[2024-08-01] VITALS (13 sets, daily range): BP systolic 108–147; BP diastolic 68–90; PULSE 88–95; RESP 16–24; TEMP 37–39.4; O2SAT 94–98
[2024-08-01] MEDS: OMEPRAZOLE 20 MG CAPSULE DR 40 MG PO (06:00)
--- NOTE | 2024-08-01 06:31 | PC.NURSE ---
: pt remains in bed this shift, pt able to repo indep in bed. Oriented to person & place, mortgage loan underwriter oriented pt and reviewed UTI dx. Crews patent and draining light arlyn urine. Tele ? NSR w/ 1st degree HB & BBB. TMAX 101.2, Tylenol given, fever resolved. Pts linens were moist from sweating while asleep, required new linens and gown, partial bed bath given.
[2024-08-01 07:03] LABS: Chloride* 106 mmol/L (96-114); Potassium* 3.6 mmol/L (3.6-5.1); Sodium* 139 mmol/L (135-149)
[2024-08-01 07:05] LABS: Creatinine* 1.7 mg/dL (0.5-1.5); Est. Creatinine Clearance* 39.42; Estimated Glomerular Filt Rate 44 ml/min
[2024-08-01 07:06] LABS: Anion Gap 9 mEq/L (7-15); Blood Urea Nitrogen* 21 mg/dL (7-30); Carbon Dioxide* 24 mmol/L (20-32); Glucose* 118 mg/dL (60-115)
[2024-08-01 07:07] LABS: Magnesium* 1.8 mg/dL (1.5-2.6); Phosphorus* 2.6 mg/dL (2.5-4.5)
[2024-08-01 07:20] LABS: Hematocrit 50.2 % (37.0-53.0); Hemoglobin* 16.3 gm/dL (13.5-17.5); Mean Corpuscular HGB Conc 33 gm/dL (32-36); Mean Corpuscular Hemoglobin 29 pg (26-34); Mean Corpuscular Volume 90 fL (80-100); Platelet Count* 109 K/uL (140-440); Red Blood Count 5.56 m/uL (4.30-5.90); White Blood Count* 9.54 K/uL (4.50-11.00)
[2024-08-01 07:22] LABS: Slide Review Reflex No
[2024-08-01 07:23] LABS: C Reactive Protein* 15.8 mg/dL (0.5-1.0)
[2024-08-01] MEDS: ACETAMINOPHEN 325 MG TABLET PO (07:58)
[2024-08-01] MEDS: 5 % DEX/0.9 SOD CHL+KCL 20 mEq 1,000 ML 125 ML IV (07:58)
--- NOTE | 2024-08-01 09:34 | PC.SOCIAL ---
Discharge planning: late entry: Attempted to meet with pt on 07/31/24. Pt was too tired to talk with secondary social studies teacher, so secondary social studies teacher called pt's contact, Nicho to discuss discharge plans. Nicho is his neighbor who assists pt with errands, housekeeping and yard work. He states pt is typically independent in his home. Pt has four cats who he is very committed to and neighbor shared that pt is motivated to improve his health to get back to his cats. Neighbor is in agreement with a plan for short term rehab prior to pt returning home. Provided neighbor with a list correction facilities by phone with their department of health ratings. Neighbor states [facility] ideal location as this is closest for neighbors to visit him during his recovery. Called and faxed information to [facility]. Confirmed with Sarah in admitting that they anticipate a bed available on Sunday and will assess pt for this bed. Awaiting decision on admit. finish repair worker to follow up as needed.
--- NOTE | 2024-08-01 12:03 | NUTR.NU ---
RDN with diet education for low fiber/surgical soft diet order. Patient had swallowing evaluation done 07/31 resulting in IDDSI Lvl 6 soft and bite-sized and thin liquids diet recommendations. Current diet order is Low fiber/Surgical soft diet with IDSI Lvl 6 soft and bite-sized texture and thin liquids. Meal intakes today have been 0 and 100%. Patient was NPO yesterday in preparation for swallow evaulation. RDN visited with patient whom reports good appetite. RDN offered diet education related to low fiber/surgical soft diet order, however patient declined. He also declined educational handouts. RDN encouraged patient to let staff know if he has any questions or concerns, or changes his mind regarding diet education. RDN will continue to monitor.
--- NOTE | 2024-08-01 12:16 | P.IMPN_ITS ---
Progress Note: A&P Assessment and plan (1) Severe sepsis: Problem details: 2 SIRS criteria easily met (temp, HR, RR) elevated lactate UTI -fluids. Jack. -general support; antibiotics 07/30/24: Improved. Still intermittent temperature elevations as high as 100.8. No longer spiking fevers as high as 103.6 as he had on admission. Status: Resolved (2) Acute UTI: Problem details: rocephin 2 grams IV q24 until cultures return fluids jack 07/31/24: Continue with current plan. Await urine culture results. 08/01: Proteus mirabilis (as below). BC x 2 no growth. Sensitive to ceftriaxone. Continue ceftriaxone until discharge, then use oral cephalosporin, total 10 days antibiotic. Proteus mirabilis Ur Hector Count >100,000 CFU/ml P mirabili WILY RX --------- --- Ampicillin <=2 S Ampicillin/Sulbactam <=2 S Cefazolin <=4 S Cefepime <=1 S Cefoxitin <=4 S Ceftazidime <=1 S Ceftriaxone <=1 S Ciprofloxacin <=0.25 S Ertapenem <=0.5 S Gentamicin <=1 S Imipenem 2 I Levofloxacin <=0.12 S Nitrofurantoin 128 R Tobramycin <=1 S Trimethoprim/Sulfamethoxazole <=20 S Piperacillin/Tazobactam <=4 S Status: Acute (3) Altered mental status: Problem details: -likely mostly baseline cognitive level with mild delirium secondary to fever/infection 07/31/24: Aside from baseline altered speech secondary to prior strokes, mentation is much improved. 08/01: continues to improve. Status: Acute (4) Acute hypokalemia: Problem details: oral and IV replacement; follow 07/31/24: Continue with replacement and monitoring 08/01: Start low dose daily K supplement. Status: Resolved (5) Wernicke-Korsakoff syndrome: Problem details: -noted in history -unclear if he is drinking or not; alcohol level zero; checking drug screen. likely baseline dementia/cognitive decline. 07/31/24: Patient indicates he has not been drinking alcohol for about 10 years. Patient caregiver and neighbor, Eugenio, corroborates. 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 Monitor. If continues to decrease, hold enoxaparin. Status: Acute (9) Diarrhea: Problem details: check C diff Status: Acute Plan Will need SNF for rehab, patient agreeable, appreciate SW discharge planning. No bed available for patient yet. Appreciate speech therapy's recommendations. I sharp ve amended the diet to reflect these. VTE prophylaxis with low dose enoxaparin. Subjective Date Seen: 08/01/24 Interval history: Daren was working with PT this morning when I saw him. He required help getting to a sitting position in the bed. He said he's had two incontinent stools since admission. He denies any other complaints. He is understanding that he will need rehab prior to going home. Exam Narrative: Exam Narrative: General: No acute distress. Awake, alert, oriented, not very talkative, verbal and motor retardation, one-word answers. Warm to the touch, perspiring. Oropharynx: Clear. Mucous membranes moist. Cardiovascular: Regular rate and rhythm. No murmurs, gallops, or rubs. Respiratory: Clear to auscultation bilaterally. No wheezes or crackles. Abdomen: Bowel sounds present. Soft, nondistended, nontender. Const: Vital Signs, click to edit/add: Vital Signs - 24 hr 07/31/24 12:29 07/31/24 13:23 07/31/24 15:00 Temperature 102.6 F H 102.6 F H Pulse Rate 100 Pulse Rate [Pulse Oximeter] 109 H Respiratory Rate 20 Blood Pressure [Le ft Arm] 121/69 Pulse Oximetry 95 Oxygen Delivery Me thod 07/31/24 15:00 07/31/24 15:00 07/31/24 15:00 Temperature 100.2 F H Pulse Rate Pulse Rate [Pulse Oximeter] 102 H 102 H Respiratory Rate 18 18 Blood Pressure [Le ft Arm] 128/81 Pulse Oximetry 95 95 Oxygen Delivery Me thod Room Air 07/31/24 19:40 07/31/24 22:25 07/31/24 22:51 Temperature 98.5 F Pulse Rate 101 H Pulse Rate [Pulse Oximeter] 102 H Respiratory Rate 20 20 Blood Pressure [Le ft Arm] 125/87 Pulse Oximetry 98 Oxygen Delivery Me thod Room Air 07/31/24 23:00 07/31/24 23:42 07/31/24 23:45 Temperature 101.2 F H Pulse Rate Pulse Rate [Pulse Oximeter] 105 H Respiratory Rate 24 Blood Pressure [Le ft Arm] 111/69 Pulse Oximetry 96 96 Oxygen Delivery Ri thod Room Air 08/01/24 02:02 08/01/24 03:19 08/01/24 06:55 Temperature 100 F H 98.6 F Pulse Rate 94 Pulse Rate [Pulse Oximeter] 88 Respiratory Rate 24 Blood Pressure [Le ft Arm] 111/71 Pulse Oximetry 96 Oxygen Delivery Ri thod Room Air 08/01/24 07:45 08/01/24 07:45 08/01/24 07:58 Temperature 102.9 F H Pulse Rate Pulse Rate [Pulse Oximeter] 95 Respiratory Rate 18 Blood Pressure [Le ft Arm] Pulse Oximetry 97 Oxygen Delivery Ri thod 08/01/24 08:45 Temperature 102.9 F H Pulse Rate Pulse Rate [Pulse Oximeter] 95 Respiratory Rate 18 Blood Pressure [Le ft Arm] 126/85 Pulse Oximetry 97 Oxygen Delivery Ri thod Room Air Labs Labs: Laboratory Results - last 24 hr 07/31/24 08/01/24 15:17 05:59 WBC 9.54 RBC 5.56 Hgb 16.3 Hct 50.2 MCV 90 MCH 29 MCHC 33 Plt Count 109 L Sodium 139 Potassium 3.9 3.6 Chloride 106 Carbon Dioxide 24 Anion Gap 9 BUN 21 Creatinine 1.7 H Estimated Creat Clear 39.42 Estimated GFR 44 Glucose 118 H Calcium 9.0 Phosphorus 2.6 Magnesium 2.1 1.8 C-Reactive Protein 15.8 H
[2024-08-01 13:52] LABS: C.Difficile Negative (Negative); CDIFFEPI 027 PRESUMPTIVE NEGATIVE (Negative)
--- NOTE | 2024-08-01 14:37 | PC.NURSE ---
end of shift; pt has been very pleasant. no pain. he had a fever of 102.9 this am. md aware and tylenol was given. temp down, door open and blankets are off. later temp was 99.0. pt is eating and drinking. he had a jack and later it was d/c. 1300. he is up with 1 assist. PT and OT worked with him. Jack patent and draining light arlyn urine. till d/c and he has to voided since it was d/c. Tele shows 1st degree HB.he had a BM adn it was negative for C-Diff
--- NOTE | 2024-08-01 14:42 | PC.NURSE ---
end of shift. pt has been very pleasant. no pain per pt. temp was 102.9 and he got Tylenol and md was updated. did steps to decrease the temperature. he is eating, drinking and voiding. he was SL today. Eleonora was d/c @ 1300. he is up with SBA to BSC and chair. PT and OT worked with him. Tele shows NSR1st degree HB. he had a BM and C-Diff was negative. one pill at a time. I did crush the Tylenol and gave it with pudding.
--- NOTE | 2024-08-01 16:02 | PC.SOCIAL ---
Discharge planning: Met with pt and neighbors in room regarding d/c plan. Pt is aware and agrees with recommendation for short term rehab stay at discharge and is requesting [facility] in [place]. This is the most convenient facility for neighbors to visit which is important to him. Provided list of nursing homes in the area with Department of Health ratings. Called [facility] and secure emailed pt information to admitting coordinater Sarah. Pt has been accepted for admission pending a review of updated information on Sunday. welfare eligibility worker to follow up as needed. Neighbors state they can provide pt a ride to the facility on Sunday if accepted and that mornings typically work betterfor them for transport. welfare eligibility worker to follow up Sunday as needed.
[2024-08-01] MEDS: POTASSIUM CHLORIDE 10 MEQ CAPSULE ER PO (17:48)
[2024-08-01] MEDS: cefTRIAXone 2 GM in 0.9 % SODIUM CHLORIDE Mini-bag 100 ML IVPB (19:11)
[2024-08-01] MEDS: ENOXAPARIN 40 MG/0.4 ML INJ SUBCUT (21:41)
[2024-08-01] MEDS: SODIUM CHLORIDE 0.9 % (FLUSH) 10 ML SYRINGE 5 ML IVF (21:41)
[2024-08-02] VITALS (11 sets, daily range): BP systolic 100–121; BP diastolic 71–82; PULSE 78–98; RESP 20–23; TEMP 36.6–37.7; O2SAT 93–96
[2024-08-02] MEDS: OMEPRAZOLE 20 MG CAPSULE DR 40 MG PO (05:59)
[2024-08-02 06:32] LABS: Basophils Absolute Auto 0.01 K/uL (0.00-0.30); Basophils Percent Auto 0.2 % (0.0-3.0); Eosinophils Absolute Auto 0.01 K/uL (0.00-0.50); Eosinophils Percent Auto 0.2 % (0.0-7.0); Hematocrit 48.3 % (37.0-53.0); Hemoglobin* 15.7 gm/dL (13.5-17.5); Immature Granulocytes Abs Auto 0.02 K/uL (0.00-0.30); Immature Granulocytes Pct Auto 0.3 %; Lymphocytes Percent Auto 8.5 % (20-44); Mean Corpuscular HGB Conc 33 gm/dL (32-36); Mean Corpuscular Hemoglobin 29 pg (26-34); Mean Corpuscular Volume 89 fL (80-100); Monocytes Percent Auto 11.1 % (0.0-11.0); Neutrophils Percent Auto 79.7 % (42.0-72.0); Platelet Count* 112 K/uL (140-440); RDW Coefficient of Variation % 14.5 % (11.5-15.5); Red Blood Count 5.46 m/uL (4.30-5.90); White Blood Count* 6.21 K/uL (4.50-11.00)
--- NOTE | 2024-08-02 06:39 | PC.NURSE ---
[id number]: Patient w/Wernicke -Korsakoff syndrome pleasant and cooperative. Denies pain. Denies N/V. Temps range from 99.1-99.9 but asymptomatic. Incontinent.
[2024-08-02 06:52] LABS: Slide Review Reflex No
[2024-08-02 06:58] LABS: Chloride* 105 mmol/L (96-114); Potassium* 3.4 mmol/L (3.6-5.1); Sodium* 134 mmol/L (135-149)
[2024-08-02 07:01] LABS: Anion Gap 8 mEq/L (7-15); Blood Urea Nitrogen* 20 mg/dL (7-30); Carbon Dioxide* 21 mmol/L (20-32); Creatinine* 1.5 mg/dL (0.5-1.5); Est. Creatinine Clearance* 44.68; Estimated Glomerular Filt Rate 51 ml/min; Glucose* 90 mg/dL (60-115)
[2024-08-02] MEDS: POTASSIUM CHLORIDE 10 MEQ CAPSULE ER PO (07:52)
[2024-08-02] MEDS: SODIUM CHLORIDE 0.9 % (FLUSH) 10 ML SYRINGE 5 ML IVF ×2 (07:52→21:19)
[2024-08-02 11:28] LABS: Total T3 83 ng/dL (80-200)
--- NOTE | 2024-08-02 13:11 | PM.IMPN1 ---
Progress Note: A&P Assessment and plan (1) Severe sepsis: Problem details: 2 SIRS criteria easily met (temp, HR, RR) elevated lactate UTI -fluids. Jack. -general support; antibiotics 07/30/24: Improved. Still intermittent temperature elevations as high as 100.8. No longer spiking fevers as high as 103.6 as he had on admission. Status: Resolved (2) Acute UTI: Problem details: rocephin 2 grams IV q24 until cultures return fluids jack 07/31/24: Continue with current plan. Await urine culture results. 08/01: Proteus mirabilis (as below). BC x 2 no growth. Sensitive to ceftriaxone. Continue ceftriaxone until discharge, then use oral cephalosporin, total 10 days antibiotic. Proteus mirabilis Ur [place] Count >100,000 CFU/ml P mirabili WILY RX --------- --- Ampicillin <=2 S Ampicillin/Sulbactam <=2 S Cefazolin <=4 S Cefepime <=1 S Cefoxitin <=4 S Ceftazidime <=1 S Ceftriaxone <=1 S Ciprofloxacin <=0.25 S Ertapenem <=0.5 S Gentamicin <=1 S Imipenem 2 I Levofloxacin <=0.12 S Nitrofurantoin 128 R Tobramycin <=1 S Trimethoprim/Sulfamethoxazole <=20 S Piperacillin/Tazobactam <=4 S Status: Acute (3) Altered mental status: Problem details: -likely mostly baseline cognitive level with mild delirium secondary to fever/infection 07/31/24: Aside from baseline altered speech secondary to prior strokes, mentation is much improved. 08/02: improved, appears to be at baseline Status: Resolved (4) Acute hypokalemia: Problem details: oral and IV replacement; follow - Mg on 08/01 was 1.8 07/31/24: Continue with replacement and monitoring 08/01: Start low dose daily K supplement. 08/02: Increase K supplementation Status: Resolved (5) Wernicke-Korsakoff syndrome: Problem details: -noted in history -unclear if he is drinking or not; alcohol level zero; checking drug screen. likely baseline dementia/cognitive decline. 07/31/24: Patient indicates he has not been drinking alcohol for about 10 years. Patient caregiver and neighbor, Eugenio, corroborates. 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 Monitor. Stable. If decreases, may need to hold enoxaparin. Status: Acute (9) Diarrhea: Problem details: - C diff negative; suspect due to antibiotics Status: Acute Plan Will need SNF for rehab, patient agreeable, appreciate SW discharge planning. No bed available for patient yet. VTE prophylaxis with low dose enoxaparin. Subjective Time Seen by Provider: 10:57 Date Seen: 08/02/24 Interval history: Daren has no complaints. He notes he worked with therapy today. Exam Narrative: Exam Narrative: General: No acute distress. Sitting in bedside chair. Awake, alert, oriented, verbal and motor retardation, short answers. Warm to the touch, perspiring. Oropharynx: Clear. Mucous membranes moist. Cardiovascular: Regular rate and rhythm. No murmurs, gallops, or rubs. Respiratory: Clear to auscultation bilaterally. No wheezes or crackles. Abdomen: Bowel sounds present. Soft, nondistended, nontender. Const: Vital Signs, click to edit/add: Vital Signs - 24 hr 08/01/24 14:09 08/01/24 15:24 08/01/24 15:24 Temperature 99.8 F H 98.7 F Pulse Rate Pulse Rate [Pulse Oximeter] 88 Respiratory Rate 18 Blood Pressure [Le ft Arm] 129/82 Pulse Oximetry 98 98 Oxygen Delivery Me thod Room Air 08/01/24 16:36 08/01/24 19:00 08/01/24 23:00 Temperature 98.7 F Pulse Rate 94 89 Pulse Rate [Pulse Oximeter] 94 Respiratory Rate 16 Blood Pressure [Le ft Arm] 147/90 H Pulse Oximetry 94 Oxygen Delivery Me thod Room Air 08/01/24 23:00 08/02/24 00:04 08/02/24 03:00 Temperature 99.6 F 99.9 F H Pulse Rate Pulse Rate [Pulse Oximeter] 98 88 Respiratory Rate 22 20 Blood Pressure [Le ft Arm] 121/82 112/72 Pulse Oximetry 94 94 94 Oxygen Delivery Me thod Room Air Room Air 08/02/24 05:59 08/02/24 07:59 08/02/24 08:30 Temperature 99.1 F 99.6 F Pulse Rate 86 Pulse Rate [Pulse Oximeter] 88 Respiratory Rate 23 Blood Pressure [Le ft Arm] 110/73 Pulse Oximetry 93 Oxygen Delivery Me thod Room Air 08/02/24 08:30 08/02/24 11:29 Temperature 98.7 F Pulse Rate Pulse Rate [Pulse Oximeter] 80 Respiratory Rate 22 Blood Pressure [Le ft Arm] 100/71 Pulse Oximetry 93 93 Oxygen Delivery Me thod Room Air Labs Labs: Laboratory Results - last 24 hr 07/30/24 08/01/24 08/02/24 18:28 12:59 05:55 WBC 6.21 RBC 5.46 Hgb 15.7 Hct 48.3 MCV 89 MCH 29 MCHC 33 RDW Coeff of Zoe 14.5 Plt Count 112 L Neut % (Auto) 79.7 H Lymph % (Auto) 8.5 L [place] % (Auto) 11.1 H Eos % (Auto) 0.2 Baso % (Auto) 0.2 Neut # (Auto) 4.90 Lymph # (Auto) 0.50 L [place] # (Auto) 0.70 Eos # (Auto) 0.01 Baso # (Auto) 0.01 Abs Immat Gran (auto) 0.02 Imm/Tot Granulo (auto) 0.3 Sodium 134 L Potassium 3.4 L Chloride 105 Carbon Dioxide 21 Anion Gap 8 BUN 20 Creatinine 1.5 Estimated Creat Clear 44.68 Estimated GFR 51 Glucose 90 Calcium 9.0 T3 83 Stl C. diff Tox B Gene Negative Stl C. diff [id number] PRESUMPTIVE NEGATIVE
[2024-08-02] MEDS: POTASSIUM BICARB 25 MEQ EFFERVESCENT TAB PO (14:08)
[2024-08-02 14:13] LABS: Potassium* 3.6 mmol/L (3.6-5.1)
--- NOTE | 2024-08-02 15:15 | PC.NURSE ---
Patient alert and oriented x4. Afebrile, NSR with BBB on tele. Ambulates with Ax1 with a walker and gait belt. Had a large BM this shift. Up in the chair for breakfast and lunch.No lunch tray ordered. No skin issues noted this shift.
[2024-08-02] MEDS: POTASSIUM CHLORIDE 10 MEQ CAPSULE ER 20 MEQ PO (19:02)
[2024-08-02] MEDS: cefTRIAXone 2 GM in 0.9 % SODIUM CHLORIDE Mini-bag 100 ML IVPB (19:04)
[2024-08-02] MEDS: ENOXAPARIN 40 MG/0.4 ML INJ SUBCUT (21:16)
--- NOTE | 2024-08-02 21:53 | PC.NURSE ---
Pt VSS. A & O x3. Incontinent of B/B. A1 with walker. Does not report any pain. One low grade temp. noted of 99.5. Waiting for assessment to AL on Sunday.
[2024-08-03 03:00] VITALS: BP 113/76; PULSE 73; RESP 20; TEMP 36.7; O2SAT 91
[2024-08-03] MEDS: OMEPRAZOLE 20 MG CAPSULE DR 40 MG PO (06:11)
--- NOTE | 2024-08-03 06:42 | PC.NURSE ---
End of shift [id number]: A&O pleasant and cooperative. Afebrile overnight and other VSS. Turn and repo. Pt calls when wet. Denies pain. Bed alarm in place. ?
--- NOTE | 2024-08-03 07:45 | P.IMPN_ITS ---
Progress Note: A&P Assessment and plan (1) Severe sepsis: Problem details: 2 SIRS criteria easily met (temp, HR, RR) elevated lactate UTI -fluids. Jack. -general support; antibiotics 07/30/24: Improved. Still intermittent temperature elevations as high as 100.8. No longer spiking fevers as high as 103.6 as he had on admission. 08/03: afebrile x 48 hours. Status: Resolved (2) Acute UTI: Problem details: 07/30: rocephin 2 grams IV q24 until cultures return, fluids, jack 07/31/24: Continue with current plan. Await urine culture results. 08/01: Proteus mirabilis (as below). BC x 2 no growth. Sensitive to ceftriaxone. Continue ceftriaxone 08/03: Afeb for almost 48 hours. Trial of d/c jack today. Continue ceftriaxone until discharge, then use oral cephalosporin, total 10 days antibiotic. Proteus mirabilis Ur [place] Count >100,000 CFU/ml P mirabili WILY RX --------- --- Ampicillin <=2 S Ampicillin/Sulbactam <=2 S Cefazolin <=4 S Cefepime <=1 S Cefoxitin <=4 S Ceftazidime <=1 S Ceftriaxone <=1 S Ciprofloxacin <=0.25 S Ertapenem <=0.5 S Gentamicin <=1 S Imipenem 2 I Levofloxacin <=0.12 S Nitrofurantoin 128 R Tobramycin <=1 S Trimethoprim/Sulfamethoxazole <=20 S Piperacillin/Tazobactam <=4 S Status: Acute (3) Altered mental status: Problem details: -likely mostly baseline cognitive level with mild delirium secondary to fever/infection 07/31/24: Aside from baseline altered speech secondary to prior strokes, mentation is much improved. 08/02: improved, appears to be at baseline Status: Resolved (4) Acute hypokalemia: Problem details: oral and IV replacement; follow - Mg on 08/01 was 1.8 07/31/24: Continue with replacement and monitoring 08/01: Start low dose daily K supplement. 08/02: Increase K supplementation 08/03: K improved by yesterday afternoon. Recheck in am Status: Resolved (5) Wernicke-Korsakoff syndrome: Problem details: -noted in history -unclear if he is drinking or not; alcohol level zero; checking drug screen. likely baseline dementia/cognitive decline. 07/31/24: Patient indicates he has not been drinking alcohol for about 10 years. Patient caregiver and neighbor, Eugenio, corroborates. 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 Stable. Recheck in am Status: Acute (9) Diarrhea: Problem details: - C diff negative; suspect due to antibiotics - 08/03 improving Status: Acute Plan Will need SNF for rehab, patient agreeable, appreciate SW discharge planning. No bed available for patient yet. VTE prophylaxis with low dose enoxaparin. Subjective Time Seen by Provider: 07:30 Date Seen: 08/03/24 Interval history: Daren has no complaints. Exam Narrative: Exam Narrative: General: No acute distress. Laying comfortably in bed watching TV. Awake, alert, oriented, verbal responses at baseline, slow and short answers. Oropharynx: Clear. Mucous membranes moist. Cardiovascular: Regular rate and rhythm. No murmurs, gallops, or rubs. Respiratory: Clear to auscultation bilaterally. No wheezes or crackles. Abdomen: Bowel sounds present. Soft, nondistended, nontender. Extremities: Trace bilateral lower extremity edema. Const: Vital Signs, click to edit/add: Vital Signs - 24 hr 08/02/24 07:59 08/02/24 08:30 08/02/24 08:30 Temperature 99.6 F Pulse Rate 86 Pulse Rate [Pulse Oximeter] 88 Respiratory Rate 23 Blood Pressure [Le ft Arm] 110/73 Pulse Oximetry 93 93 Oxygen Delivery Me thod Room Air 08/02/24 11:29 08/02/24 15:00 08/02/24 15:00 Temperature 98.7 F Pulse Rate Pulse Rate [Pulse Oximeter] 80 83 Respiratory Rate 22 20 Blood Pressure [Le ft Arm] 100/71 Pulse Oximetry 93 95 Oxygen Delivery Me thod Room Air 08/02/24 15:00 08/02/24 15:00 08/02/24 19:00 Temperature 99.5 F 97.9 F Pulse Rate 86 Pulse Rate [Pulse Oximeter] 83 79 Respiratory Rate 22 22 Blood Pressure [Le ft Arm] 108/74 114/78 Pulse Oximetry 95 93 Oxygen Delivery De thod Room Air Room Air 08/02/24 22:50 08/02/24 22:56 08/02/24 22:58 Temperature 98.1 F Pulse Rate 80 Pulse Rate [Pulse Oximeter] 78 Respiratory Rate 20 Blood Pressure [Le ft Arm] 101/74 Pulse Oximetry 96 96 Oxygen Delivery De thod Room Air 08/03/24 03:00 Temperature 98.0 F Pulse Rate Pulse Rate [Pulse Oximeter] 73 Respiratory Rate 20 Blood Pressure [Le ft Arm] 113/76 Pulse Oximetry 91 Oxygen Delivery De thod Room Air Labs Labs: Laboratory Results - last 24 hr 07/30/24 08/02/24 18:28 13:53 Potassium 3.6 T3 83
[2024-08-03 08:05] VITALS: BP 115/80; PULSE 70; PULSE 76; PULSE 80; RESP 22; TEMP 37; O2SAT 92; O2SAT 95
[2024-08-03] MEDS: POTASSIUM CHLORIDE 10 MEQ CAPSULE ER 20 MEQ PO ×2 (08:12→17:43)
[2024-08-03] MEDS: SODIUM CHLORIDE 0.9 % (FLUSH) 10 ML SYRINGE 5 ML IVF (08:12)
[2024-08-03 11:00] VITALS: BP 105/74; PULSE 80; RESP 22; TEMP 36.8; O2SAT 95
[2024-08-03 15:00] VITALS: BP 115/80; PULSE 77; RESP 20; TEMP 36.7; O2SAT 95
--- NOTE | 2024-08-03 15:31 | PC.NURSE ---
Patient alert and oriented. Up in the chair for breakfast. Did not order lunch. Ambulates with Ax1 with walker and gait belt. No skin issues noted this shift. Vital signs stable
[2024-08-03 19:00] VITALS: BP 111/73; PULSE 83; RESP 18; TEMP 36.6; O2SAT 91
[2024-08-03] MEDS: cefTRIAXone 2 GM in 0.9 % SODIUM CHLORIDE Mini-bag 100 ML IVPB (19:29)
[2024-08-03] MEDS: AMOXICILLIN 250 MG CAPSULE 500 MG PO (20:54)
[2024-08-03] MEDS: ENOXAPARIN 40 MG/0.4 ML INJ SUBCUT (20:55)
[2024-08-03 22:58] VITALS: BP 99/68; PULSE 79; RESP 20; TEMP 36.6; O2SAT 92
[2024-08-04 03:00] VITALS: BP 101/75; PULSE 92; RESP 20; TEMP 36.8; O2SAT 92
[2024-08-04] MEDS: OMEPRAZOLE 20 MG CAPSULE DR 40 MG PO (06:15)
--- NOTE | 2024-08-04 06:22 | PC.NURSE ---
End of shift [id number]: A&O pleasant and cooperative. Afebrile overnight and other VSS. Turn and repo. Brief change and turn/repo overnight. Using call light appropriately.
[2024-08-04 06:31] LABS: Basophils Absolute Auto 0.01 K/uL (0.00-0.30); Basophils Percent Auto 0.1 % (0.0-3.0); Eosinophils Absolute Auto 0.13 K/uL (0.00-0.50); Eosinophils Percent Auto 1.7 % (0.0-7.0); Hematocrit 46.9 % (37.0-53.0); Hemoglobin* 15.5 gm/dL (13.5-17.5); Immature Granulocytes Abs Auto 0.04 K/uL (0.00-0.30); Immature Granulocytes Pct Auto 0.5 %; Lymphocytes Percent Auto 13.5 % (20-44); Mean Corpuscular HGB Conc 33 gm/dL (32-36); Mean Corpuscular Hemoglobin 29 pg (26-34); Mean Corpuscular Volume 87 fL (80-100); Monocytes Percent Auto 11.8 % (0.0-11.0); Neutrophils Percent Auto 72.4 % (42.0-72.0); Platelet Count* 145 K/uL (140-440); RDW Coefficient of Variation % 14.4 % (11.5-15.5); Red Blood Count 5.37 m/uL (4.30-5.90); White Blood Count* 7.61 K/uL (4.50-11.00)
[2024-08-04 06:33] LABS: Slide Review Reflex No
[2024-08-04 06:49] LABS: Chloride* 108 mmol/L (96-114); Sodium* 137 mmol/L (135-149)
[2024-08-04 06:50] LABS: Potassium* 3.6 mmol/L (3.6-5.1)
[2024-08-04 06:52] LABS: Creatinine* 1.4 mg/dL (0.5-1.5); Est. Creatinine Clearance* 47.87; Estimated Glomerular Filt Rate 55 ml/min
[2024-08-04 06:53] LABS: Anion Gap 7 mEq/L (7-15); Blood Urea Nitrogen* 30 mg/dL (7-30); Calcium* 8.8 mg/dL (8.4-10.6); Carbon Dioxide* 22 mmol/L (20-32); Glucose* 93 mg/dL (60-115)
[2024-08-04 08:17] VITALS: BP 110/81; PULSE 79; RESP 16; TEMP 36.5; O2SAT 92
[2024-08-04] MEDS: AMOXICILLIN 500MG CAPSULE 1 EACH PO (09:08)
[2024-08-04] MEDS: POTASSIUM CHLORIDE 10 MEQ CAPSULE ER 20 MEQ PO (09:08)
--- NOTE | 2024-08-04 10:08 | PM.DS1 ---
DS: Providers Provider Time Seen by Provider: 07:45 Date Seen: 08/04/24 Date of admission: 07/30/24 21:52 Primary care physician: Shonda Olvera CNP Admitting Clinician: Nataly Thorne MD Consults: 07/30/24 21:52 Consult to Occupational Therapy [CONS] Routine Comment: Reason(s) for OT Consult:: Evaluate and Treat Any Restrictions?:: No Restrictions Consult to Physical Therapy [CONS] Routine Comment: Reason(s) for PT Consult:: Evaluate and Treat Any Restrictions?:: No Restrictions Consult to Field Foreman [CONS] Routine Comment: Reason for Consult:: Social Service Consult Attending Physician on discharge: Janeen Vasquez MD Date of Discharge: 08/04/24 DS: Diagnosis Discharge Diagnosis (1) Severe sepsis: Status: Resolved Problem details: 2 SIRS criteria easily met (temp, HR, RR) elevated lactate UTI -fluids. Jack. -general support; antibiotics 07/30/24: Improved. Still intermittent temperature elevations as high as 100.8. No longer spiking fevers as high as 103.6 as he had on admission. 08/03: afebrile x 48 hours. (2) Acute UTI: Status: Acute Problem details: 07/30: rocephin 2 grams IV q24 until cultures return, fluids, jack 07/31/24: Continue with current plan. Await urine culture results. 08/01: Proteus mirabilis (as below). BC x 2 no growth. Sensitive to ceftriaxone. Continue ceftriaxone 08/03: Afeb for almost 48 hours. Trial of d/c jack today. Continue ceftriaxone until discharge, then use oral cephalosporin, total 10 days antibiotic. 08/04: transition to oral antibiotic Proteus mirabilis Ur [place] Count >100,000 CFU/ml P mirabili WILY RX --------- --- Ampicillin <=2 S Ampicillin/Sulbactam <=2 S Cefazolin <=4 S Cefepime <=1 S Cefoxitin <=4 S Ceftazidime <=1 S Ceftriaxone <=1 S Ciprofloxacin <=0.25 S Ertapenem <=0.5 S Gentamicin <=1 S Imipenem 2 I Levofloxacin <=0.12 S Nitrofurantoin 128 R Tobramycin <=1 S Trimethoprim/Sulfamethoxazole <=20 S Piperacillin/Tazobactam <=4 S (3) Altered mental status: Status: Resolved Problem details: -likely mostly baseline cognitive level with mild delirium secondary to fever/infection 07/31/24: Aside from baseline altered speech secondary to prior strokes, mentation is much improved. 08/02: improved, appears to be at baseline (4) Acute hypokalemia: Status: Resolved Problem details: oral and IV replacement; follow - Mg on 08/01 was 1.8 07/31/24: Continue with replacement and monitoring 08/01: Start low dose daily K supplement. 08/02: Increase K supplementation 08/03: K improved by yesterday afternoon. Recheck in am (5) Wernicke-Korsakoff syndrome: Status: Chronic Problem details: -noted in history -unclear if he is drinking or not; alcohol level zero; checking drug screen. likely baseline dementia/cognitive decline. 07/31/24: Patient indicates he has not been drinking alcohol for about 10 years. Patient caregiver and neighbor, Eugenio, corroborates. 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 Stable. Recheck in am (9) Diarrhea: Status: Acute Problem details: - C diff negative; suspect due to antibiotics - 08/03 improving (10) Hypomagnesemia: Status: Acute DS: Summary Hospital Course Hospital Course: This is a 69-year-old male with a history of cerebellar ataxia from chronic alcoholism and strokes who presented through the emergency department for altered mental status, high fever, and weakness. He lives alone and was found to be weak, febrile, and confused by his neighbors. They called EMS. T-max in the emergency department was 103.6? F. He was tachycardic and white count was elevated, meeting the criteria for sepsis. His creatinine was 1.9 which is above baseline of 1.6. Lactate was 2.4 and came down to 0.9 after fluid resuscitation. Potassium and magnesium were low upon admission. Was found to have an abnormal urinalysis which was sent for culture. He was started on ceftriaxone and admitted for treatment of UTI, sepsis, and electrolyte abnormalities. Daren made good improvement over the next few days, but continues to require help with transfers, ambulation and ADLs. It is recommended that he have skilled rehab before returning home. He is therefore discharged to [facility] today for rehab. He is in improved and stable condition. Time Spent with Patient Time attestation: Total time spent providing and/or coordinating discharge services: 35 minutes, discussions with team, SW, discharge medications. Exam Narrative: Exam Narrative: General: No acute distress. Walking to bathroom with walker and standby assist. Awake, alert, oriented. Oropharynx: Clear. Mucous membranes moist. Cardiovascular: Regular rate and rhythm. No murmurs, gallops, or rubs. Respiratory: Clear to auscultation bilaterally. No wheezes or crackles. Const: Vital Signs, click to edit/add: Vital Signs - 24 hr 08/03/24 11:00 08/03/24 15:00 08/03/24 15:00 Temperature 98.3 F 98.0 F Pulse Rate [Pulse Oximeter] 80 77 77 Respiratory Rate 22 20 20 Blood Pressure [Le ft Arm] 105/74 115/80 Pulse Oximetry 95 95 Oxygen Delivery Me thod Room Air Room Air 08/03/24 19:00 08/03/24 22:58 08/04/24 03:00 Temperature 97.8 F 97.9 F 98.2 F Pulse Rate [Pulse Oximeter] 83 79 92 Respiratory Rate 18 20 20 Blood Pressure [Le ft Arm] 111/73 99/68 101/75 Pulse Oximetry 91 92 92 Oxygen Delivery Me thod Room Air Room Air Room Air 08/04/24 08:17 Temperature 97.7 F Pulse Rate [Pulse Oximeter] 79 Respiratory Rate 16 Blood Pressure [Le ft Arm] 110/81 Pulse Oximetry 92 Oxygen Delivery Me thod Room Air DS: Data Data Completed and Pending Completed studies during hospitalization: 07/30/2024 EKG: Sinus tachycardia, 119 beats per minute, left axis deviation, right bundle-branch block, T-wave abnormality, consider lateral ischemia. Ordering Physician: De Giles M.D. Date of Service: 07/30/24 Procedure(s): XR chest 2V Accession Number(s): [id number] cc: Shonda JENSEN; De Giles M.D.~ For Patients: As a result of the Cures Act, medical imaging exams and procedure reports are released immediately into your electronic medical record. You may view this report before your referring provider. If you have questions, please contact your health care provider. INDICATION: Fever TECHNIQUE: Chest radiograph 2 views COMPARISON: None FINDINGS: Mediastinum: The mediastinum is normal in appearance. The heart silhouette is normal in size and morphology. Lung: Small lung volumes are noted with mild bibasilar atelectasis. No sign of pleural effusion seen. No pneumothorax is identified. Bone and Soft tissue: Unremarkable for age. IMPRESSION: 1. Small lung volumes are noted with mild bibasilar atelectasis. Dictated by Alejandro Camp MD @ 07/30/2024 7:56:27 PM Dictated by: Alejandro Camp MD @ 07/30/2024 19:56:30 (Electronically Signed) Ordering Physician: De Giles M.D. Date of Service: 07/30/24 Procedure(s): CT head/brain wo con Accession Number(s): [id number] cc: Shonda JENSEN; De Giles M.D.~ For Patients: As a result of the Cures Act, medical imaging exams and procedure reports are released immediately into your electronic medical record. You may view this report before your referring provider. If you have questions, please contact your health care provider. INDICATION: Fever and altered mental status. TECHNIQUE: CT of the head without contrast. Coronal and sagittal reformats are included. COMPARISON: Brain MRI from 07/09/2019. FINDINGS: No CT evidence of acute cortical infarct. No loss of beasley white matter differentiation. No hyperdense vessels to suggest intracranial thrombus. No acute intracranial hemorrhage. No mass effect or midline shift. No hydrocephalus or extra-axial collections. Patchy white matter and central brainstem hypoattenuation, typical for chronic microvascular ischemic change. Anterior parafalcine ossification. No acute osseous abnormalities. Mastoid air cells and paranasal sinuses are clear. Normal soft tissues. IMPRESSION: IMPRESSION:1. No CT evidence of acute cortical infarct. No acute intracranial hemorrhage. No other acute intracranial findings. Please note that all CT scans at this facility use dose modulation, iterative reconstruction, and/or weight-based dosing when appropriate to reduce radiation dose to as low as reasonably achievable. Dictated by Dionte Jimenez MD @ 07/30/2024 7:47:49 PM (Electronically Signed) Labs on day of discharge: Labs from last 24 hours 08/04/24 06:14 WBC 7.61 RBC 5.37 Hgb 15.5 Hct 46.9 MCV 87 MCH 29 MCHC 33 RDW Coeff of Zoe 14.4 Plt Count 145 Neut % (Auto) 72.4 H Lymph % (Auto) 13.5 L [place] % (Auto) 11.8 H Eos % (Auto) 1.7 Baso % (Auto) 0.1 Neut # (Auto) 5.50 Lymph # (Auto) 1.00 [place] # (Auto) 0.90 Eos # (Auto) 0.13 Baso # (Auto) 0.01 Abs Immat Gran (auto) 0.04 Imm/Tot Granulo (auto) 0.5 Sodium 137 Potassium 3.6 Chloride 108 Carbon Dioxide 22 Anion Gap 7 BUN 30 Creatinine 1.4 Estimated Creat Clear 47.87 Estimated GFR 55 Glucose 93 Calcium 8.8 Preliminary micro results at discharge 07/30/24 20:55 Blood Culture - Preliminary Blood NO GROWTH AFTER 96 HOURS 07/30/24 18:28 Blood Culture - Preliminary Blood NO GROWTH AFTER 96 HOURS Discharge Plan Discharge Disposition: Xfer [facility] Date of Admission: 07/30/24 21:52 Attending Provider on Discharge: Janeen Vasquez Primary Care Provider: Shonda Olvera Anticipated Discharge Date/Time: 08/04/24 11:00 Discharge Medications: New potassium chloride 10 mEq Capsule, Extended Release 20 meq PO BIDWM Qty: 60 0RF amoxicillin 500 mg capsule 500 mg PO TID 7 Days Qty: 21 0RF Continued rosuvastatin 10 mg tablet 10 mg PO QPM Qty: 90 3RF hydrochlorothiazide 25 mg tablet 25 mg PO DAILY Qty: 90 3RF amlodipine 10 mg tablet 10 mg PO DAILY Qty: 90 3RF allopurinol 300 mg tablet 300 mg PO DAILY Qty: 90 3RF Discontinued potassium chloride 10 mEq capsule, extended release 20 meq PO DAILY Discharge Orders: Discharge Order (Routine); Ordered 08/04/24 Ordered By: Janeen Vasquez Activity Level: Up with assist and Use Walker Discharge Diet: Regular Diet Detail: Drink directly from cup. Not to drink from straw. Dysphagia Food: Level 6- Soft & Bite size Dysphagia Liquid: Level 0-Thin Follow Up Appointments: Shonda Olvera, ANALYTICAL SCIENTIST [Primary Care Provider] - Forms: [facility] Info Instructions Admit to: SNF Discharge Potential: Fair Length of Stay: <30 days Can use facility standing orders?: Yes Code Status: Full Code TEDs: N/A Rehab Potential: Fair Therapy: Physical Therapy and Occupational Therapy Therapy Orders: Evaluate and Treat Oxygen: No Urinary Catheter: No Lab Orders: Potassium Sunday. Orders are good >30 days: No Signature: Janeen Vasquez MD
[2024-08-04 10:51] VITALS: BP 92/63; PULSE 82; RESP 18; TEMP 36.8; O2SAT 93
[2024-08-04] MEDS: AMOXICILLIN 250 MG CAPSULE 500 MG PO (13:40)
--- NOTE | 2024-08-04 13:56 | PC.NURSE ---
Shift Summary: Patient pleasant and cooperative. Up with one assist, walker and gait belt. Incontinent of bowel and bladder, using call light appropriately, has not set off bed/chair alarm today. Able to eat independently after set up. Denies pain or SOB. Noted bruise on left 5th toe, patient unable to say how he got it. Gave report to [facility], Patient to discharge there today, neighbor to transport.
--- NOTE | 2024-08-04 17:52 | PC.SOCIAL ---
Late Entry: intake worker worked with admitting staff at [facility] to secure a rehab bed for admit today. Attempted to call neighbor for an update, but due to cell phone issues the neighbor was having, was unable to reach him. [facility] admitted pt this afternoon and pt was taken to the facility by his neighbor Eugenio. PAS completed and submitted.
== END 2024-08-04 14:28 | DRG 872 ==
LOC: ED 19:27 → MEDSURG 21:23
PROVIDERS: Family Medicine; Internal Medicine; Admitting Provider Family Medicine; Emergency Provider Emergency Medicine; PCP Registered Nurse; Visit Provider Family Medicine
DX: A41.9 Sepsis, unspecified organism (principal); N39.0 Urinary tract infection, site not specified; Z16.29 Resistance to other single specified antibiotic; I69.351 Hemiplegia and hemiparesis following cerebral infarction affecting right dominant side; R65.20 Severe sepsis without septic shock; I12.9 Hypertensive chronic kidney disease with stage 1 through stage 4 chronic kidney disease, or unspecified chronic kidney disease; N18.32 Chronic kidney disease, stage 3b; R41.82 Altered mental status, unspecified; E87.6 Hypokalemia; F10.26 Alcohol dependence with alcohol-induced persisting amnestic disorder; G31.2 Degeneration of nervous system due to alcohol; F10.21 Alcohol dependence, in remission; D75.1 Secondary polycythemia; E83.42 Hypomagnesemia; D69.6 Thrombocytopenia, unspecified; R19.7 Diarrhea, unspecified; E03.9 Hypothyroidism, unspecified; E78.5 Hyperlipidemia, unspecified; M10.9 Gout, unspecified; F02.80 Dementia in other diseases classified elsewhere, unspecified severity, without behavioral disturbance, psychotic disturbance, mood disturbance, and anxiety; I69.328 Other speech and language deficits following cerebral infarction; Z99.3 Dependence on wheelchair
CPT/HCPCS: 36415; 70450; 71046; 80048; 80053; 80069; 80076; 80306; 81001; 82077; 82140; 82803; 83036; 83605; 83735; 84100; 84132; 84145; 84480; 84484; 85025; 85027; 85610; 86140; 87040; 87086; 87186; 87493; 87631; 92610; 97110; 97116; 97162; 97165; 97530; 97535; 99285; A9270; J0696; J1650; J2470; J3411; J3475; J3480; J7030

== ENCOUNTER 2025-02-16 07:06 | Outpatient (CLI) | payer MEDICARE, BC, SELFPAY | END 2025-02-16 07:07 | disposition home or self-care (01) | LOC: AMB 02-17 10:36 | PROVIDERS: PCP Registered Nurse; Visit Provider Family Medicine | DX: S39.92XA Unspecified injury of lower back, initial encounter (principal); W18.30XA Fall on same level, unspecified, initial encounter; Y92.009 Unspecified place in unspecified non-institutional (private) residence as the place of occurrence of the external cause | CPT/HCPCS: A0998 ==

== ENCOUNTER 2025-04-22 06:01 | Outpatient (CLI) | payer MEDICARE, BC, SELFPAY ==
--- OUTSIDE RECORDS SUMMARY | 2008-02-04 07:38 | XMS_ITS | Continuity of Care Document ---
Author Organization [facility] Address [address] [address] [place] [address] Phone Care Team Providers Care Ccu Nurse Name Role Phone Dhruv Parker MD Unavailable Unavailable Allergies, Adverse Reactions, Alerts Substance Reaction Status Criticality ibuprofen hives Active No Information PSEUDOEPHEDRINE HCL hives Active No Infor mation aspirin hives Active No Information Medications Medication Instructions Dosage Effective Dates (start - stop) Status Comments Urocit-K 10 10 mEq (1,080 mg) Tab Use as directed - Active allopurinol 100 mg Tab Take one tablet by mouth daily - Active Procedures Procedure Date Colonoscopy Flex; W/bx 1/mx Level Iv-surg Path Gross/micro 08 Advance Directives Directive Yes / No Effective Date File Name No Information Encounters Encounter Description Practice Location Reason(s) For Visit Diagnoses Date Provider Providers Copied on Encounter [facility], [address] [address], [place], [place], [id number], [place] tel:[phone] [place] [facility] Colon Cancer ScreeningHemorrhoid s NosRectal Polyp/Benign [address] [facility], [place], [place], [id number] , [place]. tel:[phone] Family History Family Member Type Diagnosis Age At Onset No Information Payers Payer name Insurance type Covered libertarian ID Authoriza tion(s) Blue Cross Of [facility] [id number] Social History Type Description Quantity Date Captured Comments Sex Male Smoking Status No Information Chief Complaint And Reason For Visit No Information Reason For Referral Reason For Referral No Information History Of Present Illness Encounter Date Complaint History Of Prese nt Illness No Information Functional Status Date Functional Assessmen t No Information Instructions Date Instruction Additional Infor mation No Information Assessments Type Assessment Date No Information Patient Care Teams Name Effective Dates (start - stop) Status Members No Information
--- OUTSIDE RECORDS SUMMARY | 2008-02-04 07:38 | XMS_ITS | Continuity of Care Document ---
Author Organization [facility] Address [address] [address] [place] [address] Phone Care Team Providers Care Sales Force Developer Name Role Phone Dhruv Parker MD Unavailable [...] Diagnoses Date Provider Providers Copied on Encounter [facility], [address] [address], [place], [place], [id number], [place] tel:[phone] [place] [facility] Colon Cancer ScreeningHemorrhoid s NosRectal Polyp/Benign [address] [facility], [address], [place], [place], [address] , [place]. tel:[phone] Family History Family Member Type Diagnosis Age At Onset No Information Payers Payer name Insurance type Covered democrat ID Authoriza tion(s) Blue Cross Of [facility] [id number] Social History Type Description Quantity Date Captured [...]
--- OUTSIDE RECORDS SUMMARY | 2025-04-23 18:04 | XMS_ITS | Clinical Summary ---
Author Organization [facility] Address [address] [place] [address] Care Team Providers Care Public Relations Assistant Name Role Phone None Reported, Pcp Primary Care Provider Unavail able Source Comments Patient records contain information from all sites at [facility]. For routine questions regarding patient records, call [phone] during business hours, M-F 8:00 AM - 5:00 PM Central Time. Record requests for emergency care only can be directed to [phone] at any time.[facility] Allergies No known active allergies Medications [...] 024 Overview (08/08/2024): Hospitalized from 07/30/24- at [facility] Assessment & Plan (08/08/2024 1:34 PM [...] age to complete this topic Insurance MEDICARE [facility] Care Teams Public Relations Assistant Relationship Specialty Start Date End Date None Reported, Pcp PCP - General 09/12/24
--- OUTSIDE RECORDS SUMMARY | 2025-04-24 00:12 | XMS_ITS | Clinical Summary ---
Author Organization [facility] Address [address] [place] [address] Care Team Providers Care Medical Reception Specialist Name Role Phone None Reported, Pcp Primary Care Provider Unavail able Source Comments Patient records contain information from all sites at [facility]. For routine questions regarding patient records, call [phone] during business hours, M-F 8:00 AM - 5:00 PM Central Time. Record requests for emergency care only can be directed to [phone] at any time.[facility] Allergies No known active allergies Medications potassium [...] 024 Overview (08/08/2024): Hospitalized from 07/30/24- at [facility] Assessment & Plan (08/08/2024 1:34 PM [...] age to complete this topic Insurance MEDICARE [facility] Care Teams Medical Reception Specialist Relationship Specialty Start Date End Date None Reported, Pcp PCP - General 09/12/24
== END 2025-04-22 06:02 | disposition home or self-care (01) ==
PROVIDERS: PCP Registered Nurse; Visit Provider Family Medicine
DX: R53.1 Weakness (principal)
CPT/HCPCS: A0425; A0427

== ENCOUNTER 2025-04-22 06:40 | Inpatient (IN) | payer MEDICARE, BC, SELFPAY ==
--- OUTSIDE RECORDS SUMMARY | 2008-02-04 07:38 | XMS_ITS | Continuity of Care Document ---
Author Organization [facility] Address [address] [address] [place] [address] Phone Care Team Providers Care Coach Operator Name Role Phone Dhruv Parker MD Unavailable [...] Diagnoses Date Provider Providers Copied on Encounter [facility], [address] [address], [place], [place], [id number], [place] tel:[phone] [place] [facility] Colon Cancer ScreeningHemorrhoid s NosRectal Polyp/Benign [address] [facility], [address], [place], [place], [id number] , [place]. tel:[phone] Family History Family Member Type Diagnosis Age At Onset No Information Payers Payer name Insurance type Covered alliance party ID Authoriza tion(s) Blue Cross Of [facility] [id number] Social History Type Description Quantity Date Captured [...]
--- OUTSIDE RECORDS SUMMARY | 2008-02-04 07:38 | XMS_ITS | Continuity of Care Document ---
Author Organization [facility] Address [address] [address] [place] [address] Phone Care Team Providers Care Tableau Lead Name Role Phone Dhruv Parker MD Unavailable [...] Diagnoses Date Provider Providers Copied on Encounter [facility], [address] [address], [place], [place], [id number], [place] tel:[phone] [place] [facility] Colon Cancer ScreeningHemorrhoid s NosRectal Polyp/Benign [address]. [address] [facility], [address], [place], [place], [id number] , [place]. tel:[phone] Family History Family Member Type Diagnosis Age At Onset No Information Payers Payer name Insurance type Covered constitution party ID Authoriza tion(s) Blue Cross Of [facility] [id number] Social History Type Description Quantity Date Captured [...]
[2025-04-22] VITALS (16 sets, daily range): BP systolic 118–142; BP diastolic 73–91; PULSE 92–107; RESP 16–21; TEMP 36.9–37.3; O2SAT 92–98; BMI 32.6
--- OUTSIDE RECORDS SUMMARY | 2025-04-22 06:43 | XMS_ITS | Clinical Summary ---
Author Organization [facility] Address [address] [place] [address] Care Team Providers Care Magnetic Resonance Imaging Director Name Role Phone None Reported, Pcp Primary Care Provider Unavail able Source Comments Patient records contain information from all sites at [facility]. For routine questions regarding patient records, call [phone] during business hours, M-F 8:00 AM - 5:00 PM Central Time. Record requests for emergency care only can be directed to [phone] at any time.[facility] Allergies No known active allergies Medications potassium chloride 10 mEq ER capsule Take 20 mEq by mouth 2 (two) times a day with meals. Do not crush or chew. Active rosuvastatin (Crestor) 10 mg tablet Take 10 mg by mouth daily. Active hydroCHLOROthiaz natalia (HydroDiuril) 25 mg tablet Take 25 mg by mouth daily. Active amLODIPine (Norvasc) 10 mg tablet Take 10 mg by mouth daily. Active allopurinoL (Zyloprim) 300 mg tablet Take 300 mg by mouth daily. Active Active Problems Problem Noted Date Diagnosed Date Infection Urinary Tract Personal History 024 Overview (08/08/2024): Hospitalized from 07/30/24- at [facility] Assessment & Plan (08/08/2024 1:34 PM CDT): Culture grew out porteus mirabilis, negative blood culture, received ceftriaxone, transitioned to amoxicillin. 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 Overview (08/08/2024): Due to alcoholism Assessment & Plan (08/08/2024 1:32 PM CDT): Uses 4 wheeled walker Hypertensive Chronic Kidney Disease With Stage 1 Through Stage 4 Chronic Kidney Disease, Or Unspecified Chronic Kidney Disease 08/08/2024 Assessment & Plan (08/08/2024 1:32 PM CDT): Continue amlodipine and HCTZ Spondylosis Cervical Without Myelopathy 03/29/20 10 Social History Tobacco Use Types Packs/Day Years Used Date Smoking Tobacco: Never Assessed Dental Answer Date Recorded Dental: Regular Dentist Unknown 08/04/20 24 Sex and Gender Information Value Date Recorded Sex Assigned at Not on file Legal Sex Male 4:04 PM CDT Gender Identity Not on file Sexual Orientation Not on file Last Filed Vital Signs Vital Sign Reading Time Taken Comments Blood Pressure 98/71 08/08/2024 8:29 AM CDT Pulse 80 08/08/2024 8:29 AM CDT Temperature 34.4 C (94 F) 08/08/2024 8:29 AM CDT Respiratory Rate 16 08/08/2024 8:29 AM CDT Oxygen Saturation 94% 08/08/2024 8:29 AM CDT Inhaled Oxygen Concentration - - Weight 75.8 kg (167 lb 3.2 oz) 08/08/2024 8:29 A M CDT Height - - Body Mass Index - - Plan of Treatment Health Maintenance Due Date Last Done Comments CT Colonography 1957 Cologuard 1957 Colonoscopy 1957 Colorectal Cancer Screening 1957 Creatinine Level (Kidney Fun ction Test) 1957 FIT 1957 Fasting Glucose for Diabetes Screening 1957 Hepatitis C Screening 1957 Sodium Level 1957 DTaP,Tdap,and Td Vaccines (1 - Tdap) 1976 Pneumococcal vaccine (50+ ye ars) (1 of 2 - PCV) 1976 Zoster Vaccines (1 of 2) 2007 Potassium Level 07/23/2020 07/23/2019 COVID-19 Vaccine (1 - 2023-2 5 season) 2024 Influenza Vaccine (#1) 2024 Depression Screening (Annual PHQ-2) 11/05/2024 Fall Risk Screen (Annual) 11/05/2024 Office Visit for Blood Press ure Check / Re-check 08/08/2025 08/08/2024 IPV Vaccines Aged Out No longer eligi ble based on patient's age to complete this topic Insurance MEDICARE [facility] Care Teams Magnetic Resonance Imaging Director Relationship Specialty Start Date End Date None Reported, Pcp PCP - General 09/12/24
[2025-04-22 06:57] LABS: Basophils Percent Auto 0.1 % (0.0-3.0); Eosinophils Percent Auto 0.1 % (0.0-7.0); Hematocrit 49.9 % (37.0-53.0); Hemoglobin* 16.7 gm/dL (13.5-17.5); Immature Granulocytes Pct Auto 0.4 %; Lymphocytes Percent Auto 3.8 % (20-44); Mean Corpuscular HGB Conc 34 gm/dL (32-36); Mean Corpuscular Hemoglobin 29 pg (26-34); Mean Corpuscular Volume 87 fL (80-100); Monocytes Percent Auto 9.2 % (0.0-11.0); Neutrophils Percent Auto 86.4 % (42.0-72.0); Platelet Count* 264 K/uL (140-440); RDW Coefficient of Variation % 13.9 % (11.5-15.5); Red Blood Count 5.76 m/uL (4.30-5.90); White Blood Count* 17.39 K/uL (4.50-11.00)
[2025-04-22 07:01] LABS: Lactate Sepsis w/Reflex* 1.2 mmol/L (0.5-1.9); Slide Review Reflex No
--- NOTE | 2025-04-22 07:01 | CRLHL7_ITS ---
For Patients: As a result of the Century Cures Act, medical imaging exams and procedure reports are released immediately into your electronic medical record. You may view this report before your referring provider. If you have questions, please contact your health care provider. Indication: Weakness Technique: Chest 2 views Comparison: Chest x-ray 07/30/2024 Findings/Impression: Cardiovascular and mediastinum: Mild cardiomegaly with aortic tortuosity. Lungs and pleural spaces: Low lung volumes without pleural effusion or pneumothorax. Trace basilar discoid atelectasis. Bones and soft tissues: No significant findings. Dictated by Jovani Urrutia MD @ 04/22/2025 7:56:03 AM (Electronically Signed)
--- NOTE | 2025-04-22 07:01 | CRLHL7_ITS ---
For Patients: As a result of the Century Cures Act, medical imaging exams and procedure reports are released immediately into your electronic medical record. You may view this report before your referring provider. If you have questions, please contact your health care provider. INDICATION: Fall, altered mental status. TECHNIQUE: CT head without contrast. COMPARISON: None. FINDINGS: CSF spaces: Within normal limits for age. Brain parenchyma: Vela-white differentiation is distinct. Low-density within the deep white matter. Old lacunar infarcts within the bilateral basal ganglia and thalami. Skull base and calvarium: Mucous retention cyst within the left sphenoid sinus. The visualized orbits are grossly unremarkable. No skull fractures. IMPRESSION: 1. No calvarial fracture or intracranial bleed. 2. Old bilateral lacunar infarcts with nonspecific white matter disease, likely microangiopathy. Please note that all CT scans at this facility use dose modulation, iterative reconstruction, and/or weight-based dosing when appropriate to reduce radiation dose to as low as reasonably achievable. Dictated by Jovani Urrutia MD @ 04/22/2025 7:36:34 AM (Electronically Signed)
[2025-04-22 07:02] LABS: HCO3 VBG 25 mmol/L (21-28); PCO2 VBG 39 mmHG (40-50); PO2 VBG 41.5 mmHG (25-47); pH VBG 7.417 (7.32-7.43)
[2025-04-22 07:17] LABS: Chloride* 103 mmol/L (96-114)
[2025-04-22 07:18] LABS: Potassium* 3.3 mmol/L (3.6-5.1); Sodium* 138 mmol/L (135-149)
[2025-04-22 07:20] LABS: Lipase* 137 U/L (23-300)
[2025-04-22 07:21] LABS: Alanine Aminotransferase* 63 U/L (4-50); Alkaline Phosphatase* 119 U/L (40-150); Anion Gap 10 mEq/L (7-15); Aspartate Amino Transferase* 281 U/L (12-35); Blood Urea Nitrogen* 33 mg/dL (7-30); Calcium* 9.5 mg/dL (8.4-10.6); Carbon Dioxide* 25 mmol/L (20-32); Creatinine* 2.1 mg/dL (0.5-1.5); Est. Creatinine Clearance* 31.91; Estimated Glomerular Filt Rate 34 ml/min; Glucose* 120 mg/dL (60-115); Total Protein* 7.2 g/dL (6.0-8.3)
[2025-04-22 07:24] LABS: C Reactive Protein* 8.5 mg/dL (0.5-1.0)
[2025-04-22 07:27] LABS: Troponin, Point-of-Care* 0.03 ng/ml (0.01-0.04)
--- NOTE | 2025-04-22 07:41 | ED.GENADULT ---
HPI - General Adult General Chief complaint: Weakness Stated complaint: Weakness Time Seen by Provider: 04/22/25 06:45 Source: patient and EMS Mode of arrival: EMS History of Present Illness HPI narrative: 69-year-old male presents to the ED because of acute weakness via EMS. Patient reports that he has been feeling weak the last couple of days. He actually fell in his home but was able to get himself back up after he laid for about an hour. He is very vague in his symptoms and has difficulty with timeline and direct questions. History was very vague to the EMS teams as well which does complicate the history taking. It also unclear who called EMS though it does sound as though it was the patient. Patient is nonspecific in his report of weakness, sounds like it is global. When I asked specifically if when he fell yesterday he tripped or if his legs just buckled under him, he reports that they simply buckled. But he denies any focal weakness. There is no productive cough, no areas of any joint pain, no dysuria, no chest pain. No particular swelling of any of his joints. He has an abrasion on his forehead which I asked him about from the fall, he denies that he got any scrapes or injuries from the fall. The chart shows that he has a history of Wernicke-Korsakoff syndrome, prior strokes and chronic kidney disease. He denies any long-term medical problems to me but when I ask about prescription medicines, he does remember that he takes medications for his blood pressure and also allopurinol. He does not recall any additional history. He reports that he uses a walker at baseline, but only when specifically asked. He does not volunteer any useful information. When asked about prior hospitalizations, it sounds as though he has been hospitalized her bladder infections but he is unsure about a history of sepsis, ICU admissions, etc. I review records from July showing acute delirium from urinary infection on top of existing chronic cerebellar ataxia. He denies intoxication or drug use today. Poor historian. Smells strongly of dirty urine and sweaty body odor. Past medical history not volunteered by patient notable for chronic kidney disease, prior strokes, cerebellar ataxia, prior alcoholism. Hypertension but no coronary artery disease. Medications appear to be consistent with being stable from prior hospital discharge. Review of systems is completely attempted and he denies all of them which I consider completely unreliable. Related Data Previous Rx's ?Medication ?Instructions ?Recorded allopurinol 300 mg tablet 300 mg PO DAILY #90 tabs 07/25/24 amlodipine 10 mg tablet 10 mg PO DAILY #90 tabs 07/25/24 hydrochlorothiazide 25 mg tablet 25 mg PO DAILY #90 tabs 07/25/24 rosuvastatin 10 mg tablet 10 mg PO QPM #90 tabs 07/25/24 amoxicillin 500 mg capsule 500 mg PO TID 7 days #21 caps 08/04/24 potassium chloride 10 mEq 20 meq (2 x 10 mEq) PO BIDWM #60 08/04/24 capsule,extended release caps Allergies Allergy/AdvReac Type Severity Reaction Status Date / Time No Known Allergies Allergy Unknown Unknown Verified 07/25/24 10:16 [facility] Medical History History of lacunar cerebrovascular accident (CVA) ?Z86.73 - Personal history of transient ischemic attack (TIA), and cerebral infarction without residual deficits (ICD-10) Chronic kidney disease (CKD) stage G3b/A1, moderately decreased glomerular filtration rate (GFR) between 30-44 mL/min/1.73 square meter and albuminuria creatinine ratio less than 30 mg/g ?N18.32 - Chronic kidney disease, stage 3b (ICD-10) 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 (ICD-10) Hypertensive emergency without congestive heart failure ?I16.1 - Hypertensive emergency (ICD-10) 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 ?G31.2 - Degeneration of nervous system due to alcohol (ICD-10) ?F10.20 - Alcohol dependence, uncomplicated (ICD-10) Alcoholic encephalopathy ?G31.2 - Degeneration of nervous system due to alcohol (ICD-10) Hypothyroid ?E03.9 - Hypothyroidism, unspecified (ICD-10) Gout ?M10.9 - Gout, unspecified (ICD-10) Hyperlipidemia ?E78.5 - Hyperlipidemia, unspecified (ICD-10) Hypertension ?I10 - Essential (primary) hypertension (ICD-10) Social History Narrative: Single, no kids, retired [employer], 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, nonsmoker, gets assistance from his neighbors What is your current living situation?: unable to answer Problems where you live: unable to answer Problems where you live details: STAIRS INTO HOME In the past 12 months, utilities in danger of being shut off: unable to answer In past 12 months, lack of transportation kept you from medical appts, meetings, work, or getting things needed for daily living: unable to answer In the past 12 mos, have been you worried that your food would run out before you had money to buy more?: unable to answer In the past 12 mos, the food you bought just didn't last and you didn't have money to buy more?: unable to answer Smoking Status: Unknown if ever smoked Do you use any of these nicotine containing products: None How often do you have a drink containing alcohol: never How often do you have six or more drinks on one occasion: Never AUDIT-C Alcohol total score: 0 Non-prescribed substance use: denies use How often does anyone, including family, friends and others, physically hurt you: unable to answer How often does anyone, including family, friends and others, insult or talk down to you: unable to answer How often does anyone, including family, friends and others, threaten you with harm: unable to answer How often does anyone, including family, friends and others, scream or curse at you: unable to answer Exam Const: Vital Signs, click to edit/add: Vital Signs - 24 hr 04/22/25 06:43 04/22/25 06:59 04/22/25 07:00 Temperature 98.9 F Pulse Rate 98 102 H Pulse Rate [Pulse Oximeter] 99 Respiratory Rate 20 Blood Pressure Blood Pressure [Ri ght Upper Arm] 140/90 H Pulse Oximetry 97 96 Oxygen Delivery Me thod Room Air 04/22/25 07:01 04/22/25 07:14 04/22/25 07:15 Temperature Pulse Rate 98 97 Pulse Rate [Pulse Oximeter] 95 Respiratory Rate 20 21 Blood Pressure 134/91 H Blood Pressure [Ri ght Upper Arm] 134/91 H Pulse Oximetry 98 97 97 Oxygen Delivery Me thod Room Air 04/22/25 07:17 04/22/25 07:45 04/22/25 07:46 Temperature Pulse Rate 99 95 92 Pulse Rate [Pulse Oximeter] Respiratory Rate 21 Blood Pressure 120/83 122/81 Blood Pressure [Ri ght Upper Arm] Pulse Oximetry 96 95 95 Oxygen Delivery Me thod 04/22/25 08:00 04/22/25 08:15 04/22/25 08:30 Temperature Pulse Rate Pulse Rate [Pulse Oximeter] Respiratory Rate 17 19 20 Blood Pressure Blood Pressure [Ri [facility] Upper Arm] Pulse Oximetry Oxygen Delivery Me thod Other: Calm, attempts to be cooperative but is a very poor historian. Malodorous, sweaty, smells of strong urine. HENMT: Common normals: oropharynx normal Head and scalp: normal to inspection Other: Abrasion to left center forehead, small scrapes on the upper cheeks. Nares, nasal bridge, a ears appear normal. Open and close his jaw without difficulty. Eye: Common normals: PERRL, EOMs intact bilaterally and conjunctivae normal General eye: normal appearance of both eyes Conjunctiva: conjunctiva(e) normal Pupil: PERRL Neck & C-Spine: Common normals: full ROM and no lymphadenopathy General: normal visual inspection Other: No obvious tenderness, turns neck freely when tracking around the room. Chest: Common normals: inspection of chest normal and palpation of chest normal Resp: Common normals: normal respiratory effort and no use of accessory muscles Effort & inspection: able to speak in complete sentences Cardio: Common normals: regular rate, regular rhythm, S1 normal heart sound, S2 normal heart sound and no murmurs Rate: regular rate Rhythm: regular rhythm Heart sounds: S1 normal and S2 normal GI: Common normals: Normal to inspection, nondistended, normoactive bowel sounds present, soft to palpation, non-tender, no hepatosplenomegaly and no masses Palpation: soft and no hepatosplenomegaly Back & Pelvis: Common normals: thoracic and lumbar spine normal to inspection Extremity: Other: Significant bilateral lower extremity wasting but can flex and extend the ankles symmetrically. Normal capillary refill and peripheral pulse. No obvious signs of bruising, swelling of the joints or injury to lower extremities. As read the upper extremities he can pull himself up using the bed rails, cannot fully hold himself up for prolonged amount of time. Neuro: Other: 4-5 strength in the lower extremities, 5/5 in the uppers but I would not consider it completely normal. Shaking movements, poor overall truncal support, muscle wasting of the lower extremities. No slurring of the speech, facial movements are symmetric. Poor historian, slow thought process. Psych: Attitude: calm Insight: fair Judgement: fair Skin: Narrative: Few superficial abrasions to forehead, face. All are quite superficial. Course Course ED Course: 69-year-old male with a history of cerebellar ataxia and Wernicke-Korsakoff syndrome from prior alcoholism presenting with what appears to be acute delirium and weakness from uncertain etiology. There are multiple possibilities here. My strong suspicion is another urinary tract infection though I cannot exclude electrolyte abnormalities, untreated hypothyroidism if he is not taking his medications correctly, head injury from his recent fall, metabolic abnormality, acute infection of multiple other sources, amongst many other etiologies including cardiac, respiratory, acidosis. Will start with a head CT, chest x-ray, typical sepsis labs. At this time, he is not tachycardic nor hypotensive. Will give 1 L of normal saline over 2 hours while we await labs and findings. Will likely require hospitalization. Blood cultures, EKG and urinalysis ordered. Reevaluation(s) Time of Reevaluation #1: 08:47 Reevaluation #1: I did speak with the patient's power of managing attorney for healthcare. That the patient really does not seem to be drink any alcohol lately but he has been weaker gradually since his last hospitalization. Apparently the subacute rehab stay after his July hospitalization did not go well. Patient did not feel like he was getting attentive enough care, his POA actually signed him out at an unattended front of house manager to check him out of the rehab center and no one noticed for several hours. Patient continues to struggle at home but seems to do okay most days. The POA does live next door to patient and checks in on him at least once daily. They see that his groceries are delivered, all of his needs are met. He does take care of his own bathing once weekly, they have encouraged more frequent but this is the compromise they have come up with. Patient is apparently highly motivated to return home to independent living. They think that it would be reasonably safe to do so as long as he does improve with treating the urinary tract infection which does seem clinically obvious today. He is still not showing any signs of hypotension, tachycardia or other signs of sepsis but he certainly does have delirium, acute kidney failure and signs of this urinary infection. I will start Rocephin, speak with the hospitalist and admit him for treatment and management. If his mental status does not improve and his weakness is not improved safely for independent living, he may require [facility]ent[facility] facility rehab placement. Time of Reevaluation #2: 09:08 Reevaluation #2: Hospitalist accepts admission Vital Signs Vital signs: Initial Vital Signs Temperature 98.9 F 04/22/25 06:43 Temperature Source Temporal Artery Scan 04/22/25 06:43 Pulse Rate 99 04/22/25 06:43 Respiratory Rate 20 04/22/25 06:43 Blood Pressure 140/90 H 04/22/25 06:43 Blood Pressure Mean 106 H 04/22/25 06:43 Blood Pressure Position Semi-Fowlers 04/22/25 06:43 Pulse Oximetry 97 04/22/25 06:43 Oxygen Delivery Method Room Air 04/22/25 06:43 Vital Signs Temperature 98.9 F 04/22/25 06:43 Pulse Rate 99 04/22/25 06:43 Respiratory Rate 20 04/22/25 06:43 Blood Pressure 140/90 H 04/22/25 06:43 Pulse Oximetry 97 04/22/25 06:43 Oxygen Delivery Method Room Air 04/22/25 06:43 Temperature 98.9 F 04/22/25 06:43 Pulse Rate 92 04/22/25 07:46 Respiratory Rate 20 04/22/25 08:30 Blood Pressure 122/81 04/22/25 07:46 Pulse Oximetry 95 04/22/25 07:46 Oxygen Delivery Method Room Air 04/22/25 07:14 Medications Administered Medications: Discontinued Medications Generic Name Dose Route Start Last Admin Trade Name Freq PRN Reason Stop Dose Admin Sodium Chloride 1,000 mls @ 500 mls/hr 04/22/25 07:01 04/22/25 08:06 0.9 % Sodium Chloride 1000 Ml IV 04/22/25 09:00 500 mls/hr .Q2H UBALDO Administration Ceftriaxone Sodium 1 gm/ 100 mls @ 200 mls/hr 04/22/25 08:41 04/22/25 08:53 Sodium Chloride IVPB 04/22/25 08:42 200 mls/hr ONCE ONE Administration Medical Decision Making Lab Data Lab results reviewed: Yes I reviewed the patient's lab results Lab results narrative: Significant leukocytosis. No acidosis, creatinine is significantly worse than usual with a baseline of 1.4. AST is markedly elevated compared to baseline. Guardian does not believe patient is drinking again. Alcohol level is negative. Urinalysis is strongly suggestive of acute infection. Labs: Lab Results 04/22/25 04/22/25 04/22/25 Range/Units 06:45 06:54 Unknown WBC 17.39 H (4.50-11.00) K/uL RBC 5.76 (4.30-5.90) m/uL Hgb 16.7 (13.5-17.5) gm/dL Hct 49.9 (37.0-53.0) % MCV 87 (80-100) fL MCH 29 (26-34) pg MCHC 34 (32-36) gm/dL RDW Coeff of Zoe 13.9 (11.5-15.5) % Plt Count 264 (140-440) K/uL Neut % (Auto) 86.4 H (42.0-72.0) % Lymph % (Auto) 3.8 L (20-44) % [place] % (Auto) 9.2 (0.0-11.0) % Eos % (Auto) 0.1 (0.0-7.0) % Baso % (Auto) 0.1 (0.0-3.0) % Neut # (Auto) 15.00 H (1.7-7.0) K/uL Lymph # (Auto) 0.70 L (0.90-2.90) K/uL [place] # (Auto) 1.60 H (0.00-0.90) K/UL Eos # (Auto) 0.00 (0.00-0.50) K/uL Baso # (Auto) 0.00 (0.00-0.30) K/uL Abs Immat Gran (auto) 0.10 (0.00-0.30) K/uL Imm/Tot Granulo (auto) 0.4 % VBG pH 7.417 (7.32-7.43) VBG pCO2 39 L (40-50) mmHG VBG pO2 41.5 (25-47) mmHG VBG HCO3 25 (21-28) mmol/L Sodium 138 (135-149) mmol/L Potassium 3.3 L (3.6-5.1) mmol/L Chloride 103 (96-114) mmol/L Carbon Dioxide 25 (20-32) mmol/L Anion Gap 10 (7-15) mEq/L BUN 33 H (7-30) mg/dL Creatinine 2.1 H (0.5-1.5) mg/dL Estimated Creat Clear 31.91 Estimated GFR 34 ml/min Glucose 120 H (60-115) mg/dL Lactate 1.2 (0.5-1.9) mmol/L Calcium 9.5 (8.4-10.6) mg/dL Magnesium 1.8 (1.5-2.6) mg/dL Total Bilirubin 1.0 (0.1-1.5) mg/dL AST 281 H (12-35) U/L ALT 63 H (4-50) U/L Alkaline Phosphatase 119 (40-150) U/L C-Reactive Protein 8.5 H (0.5-1.0) mg/dL Total Protein 7.2 (6.0-8.3) g/dL Albumin 4.0 (3.3-5.0) g/dL Lipase 137 (23-300) U/L TSH 9.170 H (0.270-4.200) uIU/mL Urine Color Yellow (Yellow) Urine Appearance Slightly Cloudy A (Clear) Urine pH 7.5 (5.0-8.5) Ur Specific [place] 1.015 (1.000-1.030) Urine Protein 2+ A (Negative) Urine Glucose (UA) Negative (Negative) Urine Ketones Negative (Negative) Urine Blood 3+ A (Negative) Urine Nitrite Negative (Negative) Urine Bilirubin Negative (Negative) Urine Urobilinogen 1.0 (0.2-1.0) Ur Leukocyte Esterase 3+ A (Negative) Urine RBC 5-10 A (0-2) Urine WBC 25-50 A (0-5) Ur Squamous Epith Cells Few (None-Few) Urine Bacteria Moderate A (None) Ethyl Alcohol < 0.01 (0.01-0.03) % Lab Acknowledgement Test Added POC Troponin I 0.03 (0.01-0.04) ng/ml Imaging Data CT scan - head: Attestation: I have reviewed the pertinent imaging results. My impression: No signs of intracranial hemorrhage. Calcified area in the falx is consistent with bone density, not blood. Signs of old strokes and atrophy. Radiologist's impression: IMPRESSION: 1. No calvarial fracture or intracranial bleed. 2. Old bilateral lacunar infarcts with nonspecific white matter disease, likely microangiopathy. Please note that all CT scans at this facility use dose modulation, iterative reconstruction, and/or weight-based dosing when appropriate to reduce radiation dose to as low as reasonably achievable. Dictated by Jovani Urrutia MD @ 04/22/2025 7:36:34 AM Chest x-ray: Attestation: I have reviewed the pertinent imaging results. My impression: Some mild cardiomegaly but no obvious signs of fractured ribs, pneumothorax or pleural effusions. Radiologist's impression: Findings/Impression: Cardiovascular and mediastinum: Mild cardiomegaly with aortic tortuosity. Lungs and pleural spaces: Low lung volumes without pleural effusion or pneumothorax. Trace basilar discoid atelectasis. Bones and soft tissues: No significant findings. Dictated by Jovani Urrutia MD @ 04/22/2025 7:56:03 AM ECG Data Prior ECG tracings: available for review Interpretation: Sinus rhythm with prolonged [place] interval. Right bundle-branch block stable from 07/30/24. No new ST or T-wave abnormalities. Stable EKG. Rate 95 Discharge Plan Discharge Clinical Impression: Acute delirium, Acute on chronic kidney failure, Urinary tract infection, Cerebellar ataxia Patient Disposition: Admitted As Observation Activity Level: No Restrictions Discharge Diet: Regular
[2025-04-22 07:46] LABS: Ethanol* < 0.01 % (0.01-0.03)
[2025-04-22 07:59] LABS: Magnesium* 1.8 mg/dL (1.5-2.6)
[2025-04-22] MEDS: 0.9 % SODIUM CHLORIDE 1000 ml 1,000 ML 500 ML IV (08:06)
[2025-04-22 08:37] LABS: Appearance Urine Slightly Cloudy (Clear); Bilirubin Urine Negative (Negative); Blood Urine 3+ (Negative); Color Urine Yellow (Yellow); Glucose Urine Negative (Negative); Ketones Urine Negative (Negative); Specific Gravity Urine 1.015 (1.000-1.030)
[2025-04-22 08:38] LABS: Bacteria Urine Moderate; Leukocyte Esterase Urine 3+ (Negative); Nitrite Urine Negative (Negative); Protein Urine 2+ (Negative); Squamous Epithelial Cell Urine Few (None-Few); WBC Urine 25-50 (0-5); pH Urine 7.5 (5.0-8.5)
[2025-04-22] MEDS: cefTRIAXone 1 GM in 0.9 % SODIUM CHLORIDE Mini-bag 100 ML IVPB (08:53)
[2025-04-22 09:08] LABS: Free T4 Free Thyroxine* 0.75 ng/dL (0.70-1.85)
--- NOTE | 2025-04-22 12:47 | P.IMHP_ITS ---
Assessment and Plan Assessment and plan (1) Urinary tract infection: Problem comment: Acute on chronic recurrent UA cloudy, 3+ LE, negative nitrate, WBC 20 5-50, moderate bacteria Leukocytosis WBC 17.39 with left shift, CRP 8.5 Previous UC 07/30/2024 growing Proteus mirabilis, sensitive to ceftriaxone Continue ceftriaxone as initiated in ED, IVF for 1 L UC and BC pending Status: Acute (2) Acute delirium: Problem comment: Acute on chronic recurring in setting of acute illness/UTI Lives alone in his own home, POA and peoplesoft financial developer are neighbors (Yudi Linder) Monitor web services architect for discharge planning/placement needs - PATIENT DOES NOT WANT TO RETURN TO [facility] Status: Acute (3) Fall: Problem comment: Fall yesterday, striking head In setting of acute illness/weakness CT without evidence of acute intracranial findings PT/OT Status: Acute (4) Acute on chronic kidney failure: Problem comment: Creatinine 2.1, GFR 34 Hold hydrochlorothiazide, avoid nephrotoxic medications IVF, recheck in a.m. Status: Acute (5) Chronic kidney disease (CKD) stage G3b/A1, moderately decreased glomerular filtration rate (GFR) between 30-44 mL/min/1.73 square meter and albuminuria creatinine ratio less than 30 mg/g: Problem comment: Baseline creatinine 1.4-1.9, GFR 38-55 Status: Acute (6) Hypokalemia: Problem comment: Potassium 3.3, additional 40 mEq ordered for today Continue home dose 20 mEq b.i.d., adjusting as necessary Status: Acute (7) History of lacunar cerebrovascular accident (CVA): Problem comment: Uses wheeled walker at home, wheelchair for long distances, right sided weakness - chronic Status: Chronic (8) 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 Free T4 0.75 Outpatient follow-up recommended Status: Acute (10) Hyperlipidemia: Problem comment: Continue statin Status: Acute (11) Hypertension: Problem comment: Continue amlodipine Hold hydrochlorothiazide in setting of MILLA Status: Acute (12) Transaminitis: Problem comment: AST 281/ALT 63 Reports he has not drank alcohol in 10 years Hold statin for now Recheck in a.m. Status: Acute (13) Patient unsure of advance healthcare directive status: Problem comment: Patient reports Eugenio and Yeny Linder have copy of papers - have asked staff to obtain copy Full code for now Status: Acute Total Time Spent Total Time Spent: Today I spent 75 minutes seeing the patient, reviewing Expanse and EPIC notes/diagnostics, discussing the care plan with our care time that includes social work, PT/OT, pharmacy, RT, longterm and documenting my impressions and plan in the medical record. Hospitalist- H&P: HPI History of Present Illness Date Seen: 04/22/25 Chief complaint: Weakness Narrative: Daren Dozier is a 69 year old male past medical history significant for CKD stage 3, hypertension, hyperlipidemia, gout, history of lacunar CVA, previous alcohol use disorder with cerebellar ataxia due to alcoholism, history of Wernicke-Korsakoff syndrome, recurrent UTIs is admitted to the medical floor from the ED for further management acute UTI with acute delirium and recent fall. Patient is seen on his own, unable to confirm HPI in setting of acute delirium. Oriented to self and place currently. Tells me he fell yesterday while getting ready for bed, walking with his walker. Fell and was too weak to get up on his own. Struck his forehead. Denies losing consciousness. Currently, denies headache or dizziness. Denies neck pain. Denies recent chest pain or shortness of breath. No recent illness. Denies recent fevers or chills. Denies abdom inal pain, nausea, vomiting or diarrhea. Denies change in stools. In the ED, found to have an acute UTI. Previous hospitalization in July 2024 was for the same. Admitted for IV antibiotics and therapies. Patient lives in his own home in [facility]. His neighbors Peña Linder are his POA and peoplesoft financial developer. PCP is Dr. Laureano Modi per EMR. History of previous alcohol use, reports not having drank in the past 10 years. Nonsmoker. Review of Systems Narrative: REVIEW OF SYSTEMS: Complete review of systems performed and negative unless otherwise stated in HPI or below. Medical Decision Making Medical Decision Making Code Status: Full code for now - need to obtain copy of POLST/HCD from POA Has patient completed a Health Care Directive: Yes During This Stay, Who Would You Like To Make Decisions For You In The Event You Are Unable To Make Them For Yourself?: KALPANA Aguirre [facility] Medical History Fall ?W19.XXXA - Unspecified fall, initial encounter (ICD-10) History of lacunar cerebrovascular accident (CVA) ?Z86.73 - Personal history of transient ischemic attack (TIA), and cerebral infarction without residual deficits (ICD-10) Chronic kidney disease (CKD) stage G3b/A1, moderately decreased glomerular filtration rate (GFR) between 30-44 mL/min/1.73 square meter and albuminuria creatinine ratio less than 30 mg/g ?N18.32 - Chronic kidney disease, stage 3b (ICD-10) 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 (ICD-10) Hypertensive emergency without congestive heart failure ?I16.1 - Hypertensive emergency (ICD-10) 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 ?G31.2 - Degeneration of nervous system due to alcohol (ICD-10) ?F10.20 - Alcohol dependence, uncomplicated (ICD-10) Alcoholic encephalopathy ?G31.2 - Degeneration of nervous system due to alcohol (ICD-10) Hypothyroid ?E03.9 - Hypothyroidism, unspecified (ICD-10) Gout ?M10.9 - Gout, unspecified (ICD-10) Hyperlipidemia ?E78.5 - Hyperlipidemia, unspecified (ICD-10) Hypertension ?I10 - Essential (primary) hypertension (ICD-10) Social History Narrative: Single, no kids, 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, 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, nonsmoker, gets assistance from his neighbors What is your current living situation?: I presently have a place to live Problems where you live: no known problems Problems where you live details: n/a In the past 12 months, utilities in danger of being shut off: no In past 12 months, lack of transportation kept you from medical appts, meetings, work, or getting things needed for daily living: no In the past 12 mos, have been you worried that your food would run out before you had money to buy more?: never true In the past 12 mos, the food you bought just didn't last and you didn't have money to buy more?: never true Highest level of school completed/degree received: some college, no degree Smoking Status: Never smoker Do you use any of these nicotine containing products: None How often do you have a drink containing alcohol: never How often do you have six or more drinks on one occasion: Never AUDIT-C Alcohol total score: 0 Non-prescribed substance use: denies use Caffeine: No How often does anyone, including family, friends and others, physically hurt you : never How often does anyone, including family, friends and others, insult or talk down to you: never How often does anyone, including family, friends and others, threaten you with harm: never How often does anyone, including family, friends and others, scream or curse at you: never service: No Meds Home Medications and Allergies Home Medications ?Medication ?Instructions ?Recorded ?Confirmed ?Type allopurinol 300 mg tablet 300 mg PO DAILY #90 tabs 04/22/25 Rx amlodipine 10 mg tablet 10 mg PO DAILY #90 tabs 07/0704/22/25 Rx hydrochlorothiazide 25 mg tablet 25 mg PO DAILY #90 ta bs 07/25/24 04/22/25 Rx rosuvastatin 10 mg tablet 10 mg PO QPM #90 tabs 04/22/25 Rx potassium chloride 10 mEq 20 meq (2 x 10 mEq) PO BIDWM #60 08/04/24 04/22/25 Rx capsule,extended release caps Allergies Allergy/AdvReac Type Severity Reaction Status Date / Time No Known Allergies Allergy Unknown Unknown Verified 07/25/24 10:16 Exam Narrative: Exam Narrative: PHYSICAL EXAM General: Pleasant, conversant, NAD HEENT: Normocephalic, sclera white, EOMI, oral mucosa moist. Small amount of swelling with abrasion, dry without bleeding or drainage left forehead Cardiovascular: RRR, S1S2. No pitting edema Pulmonary: CTA bilaterally without rhonchi, rales, expiratory wheezes. No dyspnea on room air Abdominal: Soft, nondistended, NTTP Neurological: Alert, answering questions appropriately currently, cranial nerves intact, no focal findings Extremities: No gross joint deformity or swelling. AROMI. Neurovascularly intact Skin: Warm, dry. Const: Vital Signs, click to edit/add: Vital Signs - 24 hr 04/22/25 06:43 04/22/25 06:59 04/22/25 07:00 Temperature 98.9 F Pulse Rate 98 102 H Pulse Rate [Pulse Oximeter] 99 Respiratory Rate 20 Blood Pressure Blood Pressure [Le ft Arm] Blood Pressure [Ri ght Upper Arm] 140/90 H Pulse Oximetry 97 [facility] 04/22/25 07:01 04/22/25 07:14 04/22/25 07:15 Temperature Pulse Rate 98 97 Pulse Rate [Pulse Oximeter] 95 Respiratory Rate 20 21 Blood Pressure 134/91 H Blood Pressure [Le ft Arm] Blood Pressure [Ri ght Upper Arm] 134/91 H Pulse Oximetry 98 97 97 [facility] 04/22/25 07:17 04/22/25 07:45 04/22/25 07:46 Temperature Pulse Rate 99 95 92 Pulse Rate [Pulse Oximeter] Respiratory Rate 21 Blood Pressure 120/83 122/81 Blood Pressure [Le ft Arm] Blood Pressure [Ri ght Upper Arm] Pulse Oximetry 96 95 95 [facility] 04/22/25 08:00 04/22/25 08:15 04/22/25 08:30 Temperature Pulse Rate Pulse Rate [Pulse Oximeter] Respiratory Rate 17 19 20 Blood Pressure Blood Pressure [Le ft Arm] Blood Pressure [Ri ght Upper Arm] Pulse Oximetry [facility] 04/22/25 10:20 Temperature 99.1 F Pulse Rate Pulse Rate [Pulse Oximeter] 96 Respiratory Rate 18 Blood Pressure Blood Pressure [Le ft Arm] 142/88 H Blood Pressure [Ri ght Upper Arm] Pulse Oximetry 96 [facility] Hospitalist - H&P: Result Labs Labs: Short CBC 04/22/25 Range/Units 06:45 WBC 17.39 H (4.50-11.00) K/uL Hgb 16.7 (13.5-17.5) gm/dL Hct 49.9 (37.0-53.0) % Plt Count 264 (140-440) K/uL BMP 04/22/25 06:45 Sodium 138 Potassium 3.3 L Chloride 103 Carbon Dioxide 25 BUN 33 H Creatinine 2.1 H Glucose 120 H Calcium 9.5 Liver Function 04/22/25 Range/Units 06:45 Total Bilirubin 1.0 (0.1-1.5) mg/dL AST 281 H (12-35) U/L ALT 63 H (4-50) U/L Alkaline Phosphatase 119 (40-150) U/L Albumin 4.0 (3.3-5.0) g/dL Urine 04/22/25 Range/Units Unknown Urine Color Yellow (Yellow) Urine Appearance Slightly Cloudy A (Clear) Urine pH 7.5 (5.0-8.5) Ur Specific Elora 1.015 (1.000-1.030) Urine Protein 2+ A (Negative) Urine Glucose (UA) Negative (Negative) ECG Attestation: I personally reviewed and interpreted this ECG as follows: ECG interpretation date: 04/22/25 Interpretation: Sinus rhythm with first-degree AV block, RBBB, rate 95, QTC [address] scan - head: Attestation: I have reviewed the pertinent imaging results. Radiologist's impression: CSF spaces: Within normal limits for age. Brain parenchyma: Vela-white differentiation is distinct. Low-density within the deep white matter. Old lacunar infarcts within the bilateral basal ganglia and thalami. Skull base and calvarium: Mucous retention cyst within the left sphenoid sinus. The visualized orbits are grossly unremarkable. No skull fractures. IMPRESSION: 1. No calvarial fracture or intracranial bleed. 2. Old bilateral lacunar infarcts with nonspecific white matter disease, likely microangiopathy. Chest x-ray: Attestation: I have reviewed the pertinent imaging results. Radiologist's impression: Chest x-ray 07/30/2024 Findings/Impression: Cardiovascular and mediastinum: Mild cardiomegaly with aortic tortuosity. Lungs and pleural spaces: Low lung volumes without pleural effusion or pneumothorax. Trace basilar discoid atelectasis. Bones and soft tissues: No significant findings.
[2025-04-22] MEDS: 0.9 % SODIUM CHLORIDE 1000 ml 1,000 ML 125 ML IV (14:36)
[2025-04-22] MEDS: POTASSIUM CHLORIDE 10 MEQ CAPSULE ER 40 MEQ PO (14:44)
--- NOTE | 2025-04-22 15:47 | PC.NURSE ---
Pt is doing well. VSS. Pt verbalizes pain in left leg r/t fall. A&O x4; slow to respond, flat affect and irritable at times. Pt has been incontinent of urine. Tolerating regular diet well. Resting in bed at this time. Pt's home medications are sealed and in nursing med room.
[2025-04-22] MEDS: POTASSIUM CHLORIDE 10 MEQ CAPSULE ER 20 MEQ PO (17:50)
[2025-04-22] MEDS: ENOXAPARIN 40 MG/0.4 ML INJ SUBCUT (20:43)
--- NOTE | 2025-04-22 22:45 | PC.NURSE ---
Shift note ( [id number]): The pt has been alert and oriented to self, place and situation, appeared forgetful. Denied chest pain and short of breath; Spo2 has been in the 90s in RA. C/O of mild left leg pain; stated he didn't need pain medication. Swelling and bruise noted to left forehead. Redness to groin noted due to incontinent of urine, barrier cream was applied. Left sided weakness noted; the pt mumbles when speaking . No acute issues noted
[2025-04-23] VITALS (7 sets, daily range): BP systolic 93–119; BP diastolic 58–80; PULSE 84–95; RESP 16–18; TEMP 36.5–36.9; O2SAT 90–97
[2025-04-23 06:19] LABS: Hematocrit 46.6 % (37.0-53.0); Hemoglobin* 15.3 gm/dL (13.5-17.5); Mean Corpuscular HGB Conc 33 gm/dL (32-36); Mean Corpuscular Hemoglobin 29 pg (26-34); Mean Corpuscular Volume 88 fL (80-100); Platelet Count* 228 K/uL (140-440); Slide Review Reflex No; White Blood Count* 14.95 K/uL (4.50-11.00)
[2025-04-23 06:20] LABS: Albumin* 3.5 g/dL (3.3-5.0); Chloride* 105 mmol/L (96-114); Sodium* 136 mmol/L (135-149)
[2025-04-23 06:21] LABS: Potassium* 3.1 mmol/L (3.6-5.1)
[2025-04-23 06:23] LABS: Blood Urea Nitrogen* 26 mg/dL (7-30); Creatinine* 1.7 mg/dL (0.5-1.5); Est. Creatinine Clearance* 39.42; Estimated Glomerular Filt Rate 44 ml/min
[2025-04-23 06:24] LABS: Alanine Aminotransferase* 70 U/L (4-50); Alkaline Phosphatase* 107 U/L (40-150); Anion Gap 9 mEq/L (7-15); Aspartate Amino Transferase* 223 U/L (12-35); Bilirubin Direct* 0.3 mg/dL (0.0-0.5); Bilirubin Total* 0.9 mg/dL (0.1-1.5); Calcium* 9.2 mg/dL (8.4-10.6); Carbon Dioxide* 22 mmol/L (20-32); Glucose* 109 mg/dL (60-115); Total Protein* 6.4 g/dL (6.0-8.3)
[2025-04-23 06:38] LABS: C Reactive Protein* 13.9 mg/dL (0.5-1.0)
--- NOTE | 2025-04-23 07:23 | PC.NURSE ---
Picked up at 2300: Pt pleasant, alert and oriented with periods of forgetfulness. Pt stated pain in upper left leg, though he did not want any intervention. Upon questioning pt stated the pain started after fall. Swelling and bruising noted on the left side of face. Pt incontinent, redness in groin area. Pt in bed, appears to be resting, call light within reach.?
--- NOTE | 2025-04-23 08:14 | CRLHL7_ITS ---
For Patients: As a result of the Century Cures Act, medical imaging exams and procedure reports are released immediately into your electronic medical record. You may view this report before your referring provider. If you have questions, please contact your health care provider. Indication: Fall left hip pain Technique: AP pelvis and left hip two views Comparison: AP pelvis July 09, 2019 Findings: Stable negative pelvis and left hip. No fractures, deformities or lesions. No new abnormalities. Impression: No acute abnormalities. Dictated by Iaziah Paulino MD @ 04/23/2025 11:37:32 AM (Electronically Signed)
[2025-04-23] MEDS: AMLODIPINE 10 MG TABLET PO (08:20)
[2025-04-23] MEDS: allopurinoL 300 MG TABLET PO (08:20)
[2025-04-23] MEDS: POTASSIUM CHLORIDE 10 MEQ CAPSULE ER 40 MEQ PO ×2 (08:21→18:13)
[2025-04-23] MEDS: cefTRIAXone 1 GM in 0.9 % SODIUM CHLORIDE Mini-bag 100 ML IVPB (08:21)
[2025-04-23] MEDS: 0.9 % SODIUM CHLORIDE 250 ml IV (08:29)
[2025-04-23] MEDS: SODIUM CHLORIDE 0.9 % (FLUSH) 10 ML SYRINGE 5 ML IVF ×2 (08:29→20:46)
--- NOTE | 2025-04-23 11:40 | REH.OT ---
OT: Limited intervention completed due to awaiting imaging results of L hip. The patient is requiring assist x2 for bed mobility and LB cares from bed. Patient c/o L hip and L shoulder pain. Patient lives alone and does not present as safe to return home at current status. Anticipating patient will need TCU at discharge due to below baseline.
--- NOTE | 2025-04-23 12:02 | PM.IMPN1 ---
Assessment and Plan Assessment and plan (1) Urinary tract infection: Problem comment: Acute on chronic recurrent UA cloudy, 3+ LE, negative nitrate, WBC 20 5-50, moderate bacteria Leukocytosis WBC 17.39 with left shift, CRP 8.5 Previous UC 07/30/2024 growing Proteus mirabilis, sensitive to ceftriaxone Continue ceftriaxone as initiated in ED, IVF for 1 L UC and BC pending 04/23 Unresolved UTI with persistent leukocytosis requiring continued IV antibiotics. Awaiting UC. BC showing no growth. Delirium improved, cognitively slowed. Requiring 2 assist for ADLs. Will continue ceftriaxone with plan to transition to oral when sensitivities available. Continue therapies. business services director assisting with discharge needs. Status: Acute (2) Acute delirium: Problem comment: Acute on chronic recurring in setting of acute illness/UTI Lives alone in his own home, POA and patient financial specialist are neighbors (jarrell and Yeny Linder) Monitor business services director for discharge planning/placement needs - PATIENT DOES NOT WANT TO RETURN TO [facility] 04/23 delirium improved, still cognitively slowed, continue to monitor Status: Acute (3) Fall: Problem comment: Fall yesterday, striking head, resulting in left forehead hematoma In setting of acute illness/weakness CT without evidence of acute intracranial findings PT/OT Status: Acute (4) Acute on chronic kidney failure: Problem comment: Creatinine 2.1, GFR 34 Hold hydrochlorothiazide, avoid nephrotoxic medications IVF, recheck in a.m. 04/23 creatinine improved to 1.7, FR 44, continue to monitor Status: Acute (5) Chronic kidney disease (CKD) stage G3b/A1, moderately decreased glomerular filtration rate (GFR) between 30-44 mL/min/1.73 square meter and albuminuria creatinine ratio less than 30 mg/g: Problem comment: Baseline creatinine 1.4-1.9, GFR 38-55 Status: Acute (6) Hypokalemia: Problem comment: Potassium 3.3, additional 40 mEq ordered for today Continue home dose 20 mEq b.i.d., adjusting as necessary 04/23 potassium 3.1, will increase supplement to 40 mEq b.i.d., Status: Acute (7) History of lacunar cerebrovascular accident (CVA): Problem comment: Uses wheeled walker at home, wheelchair for long distances, right sided weakness - chronic Status: Chronic (8) 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 Free T4 0.75 Outpatient follow-up recommended Status: Acute (10) Hyperlipidemia: Problem comment: Continue statin Status: Acute (11) Hypertension: Problem comment: Continue amlodipine Hold hydrochlorothiazide in setting of MILLA Status: Acute (12) Transaminitis: Problem comment: AST 281/ALT 63 - remains elevated. Possibly in setting of UTI, fall, unreported alcohol use Reports he has not drank alcohol in 10 years No imaging - asymptomatic otherwise Hold statin for now Outpatient follow-up with PCP Status: Acute (13) Patient unsure of advance healthcare directive status: Problem comment: Patient reports Eugenio and Yeny Linder have copy of papers - have asked staff to obtain copy Full code for now Status: Acute (14) Left hip pain: Problem comment: S/p fall. With weight bearing Hip xray negative for acute fracture Tylenol, lidocaine patch PT as tolerated Status: Acute Plan Continue IV antibiotics, therapies. Plan for SNF or discharge to home if able Total Time Spent Total Time Spent: Today I spent 55 minutes seeing the patient, reviewing [facility] and [facility] notes/diagnostics, discussing the care plan with our care time that includes social work, PT/OT, pharmacy, RT, correction and documenting my impressions and plan in the medical record. Subjective Date Seen: 04/23/25 Interval history: Patient is seen sitting up in a chair this morning. Reports feeling better. Delirium is improving. Still cognitively slowed. Denies headache or dizziness. Bruise of forehead is evolving. Denies chest pain or shortness of breath. Nursing staff reports pain to left lower extremity with weight-bearing. He tells me it is his hip that is hurting, but is not bothersome at rest. Tolerating orals without nausea vomiting. WBC trending down. Manager Technical Training trending down. CRP slightly elevated. UC pending. LFTs still elevated - denies recent ETOH use. K+ still low. Exam Narrative: Exam Narrative: PHYSICAL EXAM General: Pleasant, conversant, NAD HEENT: Small amount of swelling with abrasion, dry without bleeding or drainage left forehead, bruising evolving Cardiovascular: RRR, S1S2. No pitting edema Pulmonary: CTA bilaterally without rhonchi, rales, expiratory wheezes. No dyspnea on room air Neurological: Alert, answering questions appropriately currently, cranial nerves intact, no focal findings Extremities: No gross joint deformity or swelling. No shortening or rotation. Neurovascularly intact Skin: Warm, dry. Const: Vital Signs, click to edit/add: Vital Signs - 24 hr 04/22/25 16:20 04/22/25 16:20 04/22/25 21:21 Temperature 98.4 F 98.4 F Pulse Rate [Pulse Oximeter] 96 107 H 104 H Respiratory Rate 18 18 18 Blood Pressure [Le ft Arm] 121/78 118/73 Pulse Oximetry 92 92 Oxygen Delivery [facility] Room Air Room Air 04/22/25 23:00 04/23/25 00:22 04/23/25 03:00 Temperature 98.2 F 97.8 F Pulse Rate [Pulse Oximeter] 95 95 92 Respiratory Rate 16 16 18 Blood Pressure [Le ft Arm] 119/77 113/74 Pulse Oximetry 97 97 Oxygen Delivery [facility] Room Air Room Air 04/23/25 07:00 Temperature 97.8 F Pulse Rate [Pulse Oximeter] 89 Respiratory Rate 18 Blood Pressure [Le ft Arm] 115/75 Pulse Oximetry 94 Oxygen Delivery Me [facility]od Room Air Labs Labs: Laboratory Results - last 24 hr 04/23/25 05:46 WBC 14.95 H RBC 5.30 Hgb 15.3 Hct 46.6 MCV 88 MCH 29 MCHC 33 Plt Count 228 Sodium 136 Potassium 3.1 L Chloride 105 Carbon Dioxide 22 Anion Gap 9 BUN 26 Creatinine 1.7 H Estimated Creat Clear 39.42 Estimated GFR 44 Glucose 109 Calcium 9.2 Total Bilirubin 0.9 Direct Bilirubin 0.3 AST 223 H ALT 70 H Alkaline Phosphatase 107 C-Reactive Protein 13.9 H Total Protein 6.4 Albumin 3.5
[2025-04-23] MEDS: LIDOCAINE 5% PATCH 1 PATCH TRANSDERMA (13:16)
--- NOTE | 2025-04-23 15:43 | PC.SOCIAL ---
Discharge planning: propagation worker met with pt and informed him that he is being recommended for a short-term rehab TCU stay. Pt was switched from observation to inpatient status today. [place] will be his first inpatient night in the hospital. The pt has straight Medicare so he will need an three night inpatient hospital stay in order to have Medicare coverage. propagation worker provided the pt with the list [facility] to [facility] for placement options. Pt states that he did not like [facility] at all(pt was there last fall and his POA-Eugenio signed him out early due to the care per the pt's report). Social work to follow-up as needed.
--- NOTE | 2025-04-23 19:36 | PC.NURSE ---
End of shift - Pt alert, oriented, cooperative. Up with x2 assist and walker/gait belt. Reported pain in L hip and shoulder at start of shift. MD aware, orders for imaging given. Medication given per MAR with pt reporting improved comfort. Incontinent of bladder during shift, continent of bowel. Tolerating RA and regular diet/fluids. Pt appears to be resting in bed with call light within reach at end of shift.
[2025-04-23] MEDS: ENOXAPARIN 40 MG/0.4 ML INJ SUBCUT (20:45)
[2025-04-24] VITALS (7 sets, daily range): BP systolic 95–112; BP diastolic 61–76; PULSE 74–91; RESP 17–21; TEMP 36.6–36.9; O2SAT 93–95
--- NOTE | 2025-04-24 05:22 | PC.NURSE ---
Addendum entered by Jonah Oliver RN 04/24/25 06:15: Pt allowed nurses to help change him at 0555. Pt was completely soaked. Original Note: Shift note: Patient has been in bed throughout the shift. Patient accepted 1x change of brief at 2300. Refused to be changed or BR assistance at 0100. He continue to have a muffled voice. Vitally stable. A/O with occasional confusion. Other attempts to help patient to the BR was declined at 0210, 0400 and 0530. Patient asked water jug to be refill with ice water at 0210.?No fever recorded. Mild pain of 3/10 to the right hip reported.
[2025-04-24 06:37] LABS: Hematocrit 46.4 % (37.0-53.0); Hemoglobin* 15.4 gm/dL (13.5-17.5); Mean Corpuscular HGB Conc 33 gm/dL (32-36); Mean Corpuscular Hemoglobin 29 pg (26-34); Mean Corpuscular Volume 88 fL (80-100); Platelet Count* 244 K/uL (140-440); Red Blood Count 5.29 m/uL (4.30-5.90); White Blood Count* 10.14 K/uL (4.50-11.00)
[2025-04-24 06:41] LABS: Slide Review Reflex No
[2025-04-24 07:02] LABS: Chloride* 104 mmol/L (96-114); Sodium* 136 mmol/L (135-149)
[2025-04-24 07:03] LABS: Potassium* 3.6 mmol/L (3.6-5.1)
[2025-04-24 07:05] LABS: Blood Urea Nitrogen* 31 mg/dL (7-30); Creatinine* 1.6 mg/dL (0.5-1.5); Est. Creatinine Clearance* 41.89; Estimated Glomerular Filt Rate 47 ml/min
[2025-04-24 07:06] LABS: Anion Gap 10 mEq/L (7-15); Calcium* 9.3 mg/dL (8.4-10.6); Carbon Dioxide* 22 mmol/L (20-32); Glucose* 93 mg/dL (60-115)
[2025-04-24 07:09] LABS: C Reactive Protein* 8.1 mg/dL (0.5-1.0)
[2025-04-24] MEDS: allopurinoL 300 MG TABLET PO (09:39)
[2025-04-24] MEDS: SODIUM CHLORIDE 0.9 % (FLUSH) 10 ML SYRINGE 5 ML IVF ×2 (09:39→20:20)
[2025-04-24] MEDS: AMLODIPINE 10 MG TABLET PO (09:39)
[2025-04-24] MEDS: cefTRIAXone 1 GM in 0.9 % SODIUM CHLORIDE Mini-bag 100 ML IVPB (09:39)
--- NOTE | 2025-04-24 12:03 | PC.SOCIAL ---
Addendum entered by CASI Matos 04/24/25 16:32: Discharge planning: Pre-admission screening was completed and secure emailed to Puja at [facility]. [id number]. Social work to follow-up as needed. Addendum entered by CASI Matos 04/24/25 15:37: Discharge planning: probation worker spoke with pt's neighbor and KALPANA, Eugenio Linder #[phone], this afternoon and he stated that he can give the pt a ride to [facility] on Sunday and to just call him as soon as a time is known. probation worker also checked with PT who states the pt should be able to get in and out of a vehicle. Eugenio states that he will transport the pt in the pt's vehicle on Sunday because it sits lower to the ground and is usually easier for the pt to get in and out of. Social work to follow-up as needed. Original Note: Discharge planning: probation worker met with pt and he would really like to be able to go to [facility] in [place] for short-term rehab. probation worker spoke with Puja at [facility] who is covering for Elana in Admissions today. Puja stated that they have male short-term rehab beds available. probation worker sent the referral to Puja at [facility] for review via secure email. Puja stated they can accept the pt on Sunday for placement pending updated notes sent to either her or Elana on Sunday morning. The room will most likely be a private room with a shared bath, but that will not be certain until Sunday. probation worker will update the pt and also reach out to his neighbor, Eugenio, to see if he can possibly transport the pt on Sunday to [facility]. probation worker will first check with PT to see if the pt is safe/able to get in and out of a vehicle. Social work to follow-up as needed.
--- NOTE | 2025-04-24 12:10 | P.IMPN_ITS ---
Assessment and Plan Assessment and plan (1) Urinary tract infection: Problem comment: Acute on chronic recurrent UA cloudy, 3+ LE, negative nitrate, WBC 20 5-50, moderate bacteria Leukocytosis WBC 17.39 with left shift, CRP 8.5 Previous UC 07/30/2024 growing Proteus mirabilis, sensitive to ceftriaxone Continue ceftriaxone as initiated in ED, IVF for 1 L 04/23 Unresolved UTI with persistent leukocytosis requiring continued IV antibiotics. Awaiting UC. BC showing no growth. Delirium improved, cognitively slowed. Requiring 2 assist for ADLs. Will continue ceftriaxone with plan to transition to oral when sensitivities available. Continue therapies. clinical services professional assisting with discharge needs. 04/24 urine culture growing Proteus mirabilis, sensitive to current ceftriaxone. Leukocytosis resolved, CRP trending down Status: Acute (2) Acute delirium: Problem comment: Acute on chronic recurring in setting of acute illness/UTI Lives alone in his own home, POA and financial internship are neighbors (jarrell and Yeny Linder) Monitor clinical services professional for discharge planning/placement needs - PATIENT DOES NOT WANT TO RETURN TO [facility] Delirium improved, still cognitively slowed, continue to monitor Status: Acute (3) Fall: Problem comment: Fall yesterday, striking head, resulting in left forehead hematoma In setting of acute illness/weakness CT without evidence of acute intracranial findings PT/OT - recommending SNF Status: Acute (4) Acute on chronic kidney failure: Problem comment: Creatinine 2.1, GFR 34 Hold hydrochlorothiazide, avoid nephrotoxic medications IVF, recheck in a.m. Creatinine improved to 1.6, GFR 47 Status: Acute (5) Chronic kidney disease (CKD) stage G3b/A1, moderately decreased glomerular filtration rate (GFR) between 30-44 mL/min/1.73 square meter and albuminuria creatinine ratio less than 30 mg/g: Problem comment: Baseline creatinine 1.4-1.9, GFR 38-55 Status: Acute (6) Hypokalemia: Problem comment: Potassium 3.3, additional 40 mEq ordered for today Continue home dose 20 mEq b.i.d., adjusting as necessary Potassium improved to 3.6, currently on 40 mEq oral potassium supplement b.i.d. 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 Free T4 0.75 Outpatient follow-up recommended Status: Acute (10) Hyperlipidemia: Problem comment: Continue statin Status: Acute (11) Hypertension: Problem comment: Continue amlodipine Hold hydrochlorothiazide in setting of MILLA Status: Acute (12) Transaminitis: Problem comment: AST 281/ALT 63 - remains elevated. Possibly in setting of UTI, fall, unreported alcohol use Reports he has not drank alcohol in 10 years No imaging - asymptomatic otherwise Hold statin for now Outpatient follow-up with PCP Status: Acute (13) Patient unsure of advance healthcare directive status: Problem comment: Patient reports Eugenio and Yeny Linder have copy of papers - have asked staff to obtain copy Full code for now Status: Acute (14) Left hip pain: Problem comment: S/p fall. With weight bearing Hip xray negative for acute fracture Tylenol, lidocaine patch PT as tolerated Consider further imaging if new or worsening symptoms or no resolve Status: Acute Plan Continue IV antibiotics, therapies. clinical services professional reporting that bed may be available at [facility] on Friday 04/27 Total Time Spent Total Time Spent: Today I spent 55 minutes seeing the patient, reviewing Expanse and EPIC notes/diagnostics, discussing the care plan with our care time that includes social work, PT/OT, pharmacy, RT, assisted and documenting my impressions and plan in the medical record. Subjective Date Seen: 04/24/25 Interval history: Patient is seen sitting up in bed this morning. Reports feeling somewhat better. Remains afebrile. Denies headache or dizziness. Denies chest pain or shortness of breath. Eating well, tolerating orals without nausea vomiting. Participating in therapies. Leukocytosis has resolved. Potassium improved to 3.6. MILLA resolved, creatinine 1.6. Urine culture growing Proteus mirabilis, as noted in previous urine culture. Sensitive to ceftriaxone. Exam Narrative: Exam Narrative: PHYSICAL EXAM General: Pleasant, conversant, NAD HEENT: Small amount of swelling with abrasion, dry without bleeding or drainage left forehead, bruising evolving Cardiovascular: RRR, S1S2. No pitting edema Pulmonary: CTA bilaterally without rhonchi, rales, expiratory wheezes. No dyspnea on room air Neurological: Alert, answering questions appropriately currently, cranial nerves intact, no focal findings Extremities: No gross joint deformity or swelling. No shortening or rotation. Neurovascularly intact Skin: Warm, dry. Const: Vital Signs, click to edit/add: Vital Signs - 24 hr 04/23/25 15:00 04/23/25 19:00 04/23/25 23:00 Temperature 97.9 F 98.5 F Pulse Rate [Pulse Oximeter] 89 85 88 Respiratory Rate 18 18 18 Blood Pressure [Le ft Arm] 109/70 110/79 Pulse Oximetry 96 90 Oxygen Delivery Me thod Room Air Room Air 04/23/25 23:00 04/24/25 02:05 04/24/25 09:24 Temperature 98 F 98.5 F 98 F Pulse Rate [Pulse Oximeter] 88 81 91 Respiratory Rate 18 18 18 Blood Pressure [Le ft Arm] 93/58 L 112/76 95/61 Pulse Oximetry 91 95 93 Oxygen Delivery Me thod Room Air Room Air Room Air 04/24/25 11:00 Temperature Pulse Rate [Pulse Oximeter] 91 Respiratory Rate 18 Blood Pressure [Le ft Arm] 97/63 Pulse Oximetry 93 Oxygen Delivery Me thod Room Air Labs Labs: Laboratory Results - last 24 hr 04/24/25 05:37 WBC 10.14 RBC 5.29 Hgb 15.4 Hct 46.4 MCV 88 MCH 29 MCHC 33 Plt Count 244 Sodium 136 Potassium 3.6 Chloride 104 Carbon Dioxide 22 Anion Gap 10 BUN 31 H Creatinine 1.6 H Estimated Creat Clear 41.89 Estimated GFR 47 Glucose 93 Calcium 9.3 C-Reactive Protein 8.1 H
[2025-04-24] MEDS: POTASSIUM CHLORIDE 10 MEQ CAPSULE ER 40 MEQ PO (18:41)
[2025-04-24] MEDS: polyethylene glycoL 3350 17 GM PACK PO (18:41)
[2025-04-24] MEDS: SENNOSIDES/DOCUSATE TABLET 1 TAB PO (18:45)
--- NOTE | 2025-04-24 18:57 | PC.NURSE ---
The patient is alert and orientated, speech is slow, and garbled. The patient reported intermittent L hip pain, although denied non pharmacologic and pharmacologic options. AX1-2 w/ GB and RW. The patient is very stiff and hunched over when he walks. Incontinent of bladder throughout the day, despite timed toileting efforts. This evening the patient reported he felt constipated, PRN bowel meds were given. No straws per PT, the patient is noted to tuck his chin well while eating and taking pills. Call light is within reach, the patient did not want to have dinner this evening. Opal CLAY BSN
[2025-04-24] MEDS: ENOXAPARIN 40 MG/0.4 ML INJ SUBCUT (20:20)
[2025-04-25 03:00] VITALS: BP 96/69; PULSE 85; RESP 20; TEMP 36.9; O2SAT 96
[2025-04-25 06:31] LABS: Hematocrit 45.9 % (37.0-53.0); Hemoglobin* 15.2 gm/dL (13.5-17.5); Mean Corpuscular HGB Conc 33 gm/dL (32-36); Mean Corpuscular Hemoglobin 29 pg (26-34); Mean Corpuscular Volume 88 fL (80-100); Platelet Count* 250 K/uL (140-440); Red Blood Count 5.21 m/uL (4.30-5.90); Slide Review Reflex No; White Blood Count* 8.18 K/uL (4.50-11.00)
[2025-04-25 06:50] LABS: Chloride* 108 mmol/L (96-114); Potassium* 3.7 mmol/L (3.6-5.1); Sodium* 139 mmol/L (135-149)
[2025-04-25 06:53] LABS: Anion Gap 8 mEq/L (7-15); Blood Urea Nitrogen* 27 mg/dL (7-30); Calcium* 9.1 mg/dL (8.4-10.6); Carbon Dioxide* 23 mmol/L (20-32); Creatinine* 1.5 mg/dL (0.5-1.5); Est. Creatinine Clearance* 44.68; Estimated Glomerular Filt Rate 51 ml/min; Glucose* 90 mg/dL (60-115)
[2025-04-25 07:48] VITALS: BP 95/69; PULSE 78; RESP 18; TEMP 36.7; O2SAT 95
[2025-04-25] MEDS: POTASSIUM CHLORIDE 10 MEQ CAPSULE ER 40 MEQ PO ×2 (07:52→17:56)
--- NOTE | 2025-04-25 08:32 | PC.NURSE ---
Shift note (0827-1432): Patient pleasant and cooperative. Patient remained in bed this shift. Signs of hip discomfort when rolling in bed; otherwise denied pain. Blood pressures soft. ?
[2025-04-25] MEDS: allopurinoL 300 MG TABLET PO (09:11)
[2025-04-25] MEDS: SODIUM CHLORIDE 0.9 % (FLUSH) 10 ML SYRINGE 5 ML IVF ×2 (09:12→21:42)
[2025-04-25] MEDS: cefTRIAXone 1 GM in 0.9 % SODIUM CHLORIDE Mini-bag 100 ML IVPB (09:12)
[2025-04-25 11:00] VITALS: BP 107/74; PULSE 77; RESP 16; TEMP 36.6; O2SAT 94
[2025-04-25] MEDS: LIDOCAINE 5% PATCH 1 PATCH TRANSDERMA (11:36)
[2025-04-25 15:08] VITALS: BP 105/73; PULSE 77; RESP 16; TEMP 36.8; O2SAT 94
--- NOTE | 2025-04-25 16:57 | PM.IMPN1 ---
Assessment and Plan Assessment and plan (1) Urinary tract infection: Problem comment: Acute on chronic recurrent UA cloudy, 3+ LE, negative nitrate, WBC 20 5-50, moderate bacteria Leukocytosis WBC 17.39 with left shift, CRP 8.5 Previous UC 07/30/2024 growing Proteus mirabilis, sensitive to ceftriaxone Continue ceftriaxone as initiated in ED, IVF for 1 L 04/23 Unresolved UTI with persistent leukocytosis requiring continued IV antibiotics. Awaiting UC. BC showing no growth. Delirium improved, cognitively slowed. Requiring 2 assist for ADLs. Will continue ceftriaxone with plan to transition to oral when sensitivities available. Continue therapies. assurance services manager health care assisting with discharge needs. 04/24 urine culture growing Proteus mirabilis, sensitive to current ceftriaxone. Leukocytosis resolved, CRP trending down 04/25 Continue ceftriaxone, day 01/12, transition to oral upon discharge Status: Acute (2) Acute delirium: Problem comment: Acute on chronic recurring in setting of acute illness/UTI Lives alone in his own home, POA and financial analysis manager are neighbors (jarrell and Yeny Linder) Monitor assurance services manager health care for discharge planning/placement needs - PATIENT DOES NOT WANT TO RETURN TO [facility] Delirium improved, still cognitively slowed, continue to monitor Status: Acute (3) Fall: Problem comment: Fall yesterday, striking head, resulting in left forehead hematoma In setting of acute illness/weakness CT without evidence of acute intracranial findings PT/OT - recommending SNF, bed not available until Sunday. Status: Acute (4) Acute on chronic kidney failure: Problem comment: Creatinine 2.1, GFR 34 Hold hydrochlorothiazide, avoid nephrotoxic medications IVF, recheck in a.m. Creatinine improved to 1.5, which is his baseline. Continue to hold amlodipine and hydrochlorothiazide due to blood pressure is on the low normal side Status: Acute (5) Chronic kidney disease (CKD) stage G3b/A1, moderately decreased glomerular filtration rate (GFR) between 30-44 mL/min/1.73 square meter and albuminuria creatinine ratio less than 30 mg/g: Problem comment: Baseline creatinine 1.4-1.9, GFR 38-55 Status: Chronic (6) Hypokalemia: Problem comment: Potassium 3.3, additional 40 mEq ordered for today Continue home dose 20 mEq b.i.d., adjusting as necessary Potassium improved to 3.6, currently on 40 mEq oral potassium supplement b.i.d. 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 Free T4 0.75 Outpatient follow-up recommended Status: Acute (10) Hyperlipidemia: Problem comment: Continue statin Status: Chronic (11) Hypertension: Problem comment: BP low normal, hold amlodipine, continue to hold hydrochlorothiazide in setting of MILLA Status: Acute (12) Transaminitis: Problem comment: AST 281/ALT 63 - remains elevated. Possibly in setting of UTI, fall, unreported alcohol use Reports he has not drank alcohol in 10 years No imaging - asymptomatic otherwise Hold statin for now Outpatient follow-up with PCP - 04/25 AST/ALT starting to improve Status: Acute (13) Patient unsure of advance healthcare directive status: Problem comment: Patient reports Eugenio and Yeny Linder have copy of papers - have asked staff to obtain copy Full code for now Status: Acute (14) Left hip pain: Problem comment: S/p fall. With weight bearing Hip xray negative for acute fracture Tylenol, lidocaine patch PT as tolerated Consider further imaging if new or worsening symptoms or no resolve Status: Acute Plan Continue IV antibiotics, therapies. assurance services manager health care reporting that bed may be available at [facility] on Friday 04/27 Subjective Time Seen by Provider: 12:35 Date Seen: 04/25/25 Interval history: Daren has no complaints. He is overall feeling better. Exam Narrative: Exam Narrative: General: No acute distress. Awake, alert, oriented x3. No pallor. No jaundice. He is eating lunch in the bedside chair. Swelling and abrasion noted on left forehead. Oropharynx: Clear. Mucous membranes moist. Cardiovascular: Regular rate and rhythm. No murmurs, gallops, or rubs. Respiratory: Clear to auscultation bilaterally. No wheezes or crackles. Abdomen: Bowel sounds present. Soft, nondistended, nontender. Extremities: No lower extremity edema. Const: Vital Signs, click to edit/add: Vital Signs - 24 hr 04/24/25 19:00 04/24/25 23:00 04/25/25 03:00 Temperature 98.5 F 98.0 F 98.4 F Pulse Rate [Pulse Oximeter] 74 85 85 Respiratory Rate 17 21 20 Blood Pressure [Le ft Arm] 108/74 98/66 96/69 Pulse Oximetry 94 94 96 Oxygen Delivery Me thod Room Air Room Air Room Air 04/25/25 07:48 04/25/25 11:00 04/25/25 15:08 Temperature 98.1 F 97.8 F 98.3 F Pulse Rate [Pulse Oximeter] 78 77 77 Respiratory Rate 18 16 16 Blood Pressure [Le ft Arm] 95/69 107/74 105/73 Pulse Oximetry 95 94 94 Oxygen Delivery Me thod Room Air Room Air Room Air Labs Labs: Laboratory Results - last 24 hr 04/25/25 05:34 WBC 8.18 RBC 5.21 Hgb 15.2 Hct 45.9 MCV 88 MCH 29 MCHC 33 Plt Count 250 Sodium 139 Potassium 3.7 Chloride 108 Carbon Dioxide 23 Anion Gap 8 BUN 27 Creatinine 1.5 Estimated Creat Clear 44.68 Estimated GFR 51 Glucose 90 Calcium 9.1
--- NOTE | 2025-04-25 18:34 | PC.NURSE ---
End of shift [id number]: Pt AxOx4, pleasant, and cooperative with care. Speech is slow and garbled. Pt denies pain during shift but wanted scheduled Lidocaine pain. Placed to the L hip. A1 GB W. Great appetite. BM today. No straws used per PT. Taking pill okay whole. Pt appears resting with call light in reach watching television.
[2025-04-25 21:39] VITALS: BP 107/73; PULSE 71; RESP 16; TEMP 37.1; O2SAT 94
[2025-04-25] MEDS: ENOXAPARIN 40 MG/0.4 ML INJ SUBCUT (21:42)
[2025-04-25 23:00] VITALS: BP 90/59; PULSE 76; RESP 18; TEMP 36.7; O2SAT 94
[2025-04-26 04:25] VITALS: BP 98/68; PULSE 70; RESP 20; TEMP 36.9; O2SAT 91
[2025-04-26 06:35] LABS: Hematocrit 45.1 % (37.0-53.0); Hemoglobin* 14.8 gm/dL (13.5-17.5); Mean Corpuscular HGB Conc 33 gm/dL (32-36); Mean Corpuscular Hemoglobin 29 pg (26-34); Mean Corpuscular Volume 89 fL (80-100); Platelet Count* 262 K/uL (140-440); Red Blood Count 5.09 m/uL (4.30-5.90)
[2025-04-26 06:44] LABS: Slide Review Reflex No
[2025-04-26 07:00] VITALS: BP 105/75; PULSE 74; RESP 18; TEMP 36.6; O2SAT 95
[2025-04-26 07:06] LABS: Chloride* 109 mmol/L (96-114); Sodium* 140 mmol/L (135-149)
[2025-04-26 07:09] LABS: Anion Gap 9 mEq/L (7-15); Blood Urea Nitrogen* 27 mg/dL (7-30); Calcium* 9.3 mg/dL (8.4-10.6); Carbon Dioxide* 22 mmol/L (20-32); Creatinine* 1.4 mg/dL (0.5-1.5); Est. Creatinine Clearance* 47.87; Estimated Glomerular Filt Rate 55 ml/min; Glucose* 87 mg/dL (60-115)
[2025-04-26] MEDS: POTASSIUM CHLORIDE 10 MEQ CAPSULE ER 40 MEQ PO ×2 (08:28→17:36)
[2025-04-26] MEDS: allopurinoL 300 MG TABLET PO (08:29)
[2025-04-26] MEDS: SODIUM CHLORIDE 0.9 % (FLUSH) 10 ML SYRINGE 5 ML IVF ×2 (08:29→20:39)
[2025-04-26] MEDS: cefTRIAXone 1 GM in 0.9 % SODIUM CHLORIDE Mini-bag 100 ML IVPB (08:29)
[2025-04-26] MEDS: LIDOCAINE 5% PATCH 1 PATCH TRANSDERMA (12:17)
[2025-04-26 12:21] VITALS: BP 127/86; PULSE 85; RESP 18; TEMP 36.6; O2SAT 97
[2025-04-26 15:14] VITALS: BP 108/74; PULSE 73; RESP 16; TEMP 36.7; O2SAT 97
--- NOTE | 2025-04-26 17:02 | P.IMPN_ITS ---
Assessment and Plan Assessment and plan (1) Urinary tract infection: Problem comment: Acute on chronic recurrent UA cloudy, 3+ LE, negative nitrate, WBC 20 5-50, moderate bacteria Leukocytosis WBC 17.39 with left shift, CRP 8.5 Previous UC 07/30/2024 growing Proteus mirabilis, sensitive to ceftriaxone Continue ceftriaxone as initiated in ED, IVF for 1 L 04/23 Unresolved UTI with persistent leukocytosis requiring continued IV antibiotics. Awaiting UC. BC showing no growth. Delirium improved, cognitively slowed. Requiring 2 assist for ADLs. Will continue ceftriaxone with plan to transition to oral when sensitivities available. Continue therapies. consulting services associate assisting with discharge needs. 04/24 urine culture growing Proteus mirabilis, sensitive to current ceftriaxone. Leukocytosis resolved, CRP trending down 04/25 Continue ceftriaxone, day 3/10, transition to oral upon discharge 04/26 continue ceftriaxone, day 4, transition to oral upon discharge Status: Acute (2) Acute delirium: Problem comment: Acute on chronic recurring in setting of acute illness/UTI Lives alone in his own home, POA and financial service professional are neighbors (Yudi Linder) Monitor consulting services associate for discharge planning/placement needs - PATIENT DOES NOT WANT TO RETURN TO [facility] 04/26 Delirium improved, still cognitively slowed, continue to monitor Status: Acute (3) Fall: Problem comment: Fall yesterday, striking head, resulting in left forehead hematoma In setting of acute illness/weakness CT without evidence of acute intracranial findings PT/OT - recommending SNF, bed not available until Sunday. Status: Acute (4) Acute on chronic kidney failure: Problem comment: Creatinine 2.1, GFR 34 Hold hydrochlorothiazide, avoid nephrotoxic medications IVF, recheck in a.m. Creatinine continues to improve, now 1.4, which is his baseline 1.4-1.5. Continue to hold amlodipine and hydrochlorothiazide due to blood pressure is on the low normal side Status: Acute (5) Chronic kidney disease (CKD) stage G3b/A1, moderately decreased glomerular filtration rate (GFR) between 30-44 mL/min/1.73 square meter and albuminuria creatinine ratio less than 30 mg/g: Problem comment: Baseline creatinine 1.4-1.9, GFR 38-55 Status: Chronic (6) Hypokalemia: Problem comment: Potassium 3.3, additional 40 mEq ordered for today Continue home dose 20 mEq b.i.d., adjusting as necessary Potassium improved to 3.6, currently on 40 mEq oral potassium supplement b.i.d. 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 Free T4 0.75 Outpatient follow-up recommended Status: Acute (10) Hyperlipidemia: Problem comment: Hold statin due to transaminitis Status: Chronic (11) Hypertension: Problem comment: BP low normal, hold amlodipine, hydrochlorothiazide Status: Acute (12) Transaminitis: Problem comment: AST 281/ALT 63 - remains elevated. Possibly in setting of UTI, fall, unreported alcohol use Reports he has not drank alcohol in 10 years No imaging - asymptomatic otherwise Hold statin for now Outpatient follow-up with PCP Status: Acute (13) Patient unsure of advance healthcare directive status: Problem comment: Patient reports Naresh Linder have copy of papers - have asked staff to obtain copy Full code for now Status: Acute (14) Left hip pain: Problem comment: S/p fall. With weight bearing Hip xray negative for acute fracture Tylenol, lidocaine patch PT as tolerated Consider further imaging if new or worsening symptoms or no resolve Status: Acute Plan Continue IV antibiotics, therapies. consulting services associate reporting that bed may be available at [facility] on Friday 04/27 Subjective Time Seen by Provider: 08:11 Date Seen: 04/26/25 Interval history: Daren tells me he is feeling well today. He has no complaints. Exam Narrative: Exam Narrative: General: No acute distress. Awake, alert, oriented. No pallor. No jaundice. He is eating lunch in the bedside chair. Swelling and abrasion noted on left forehead, improving. Oropharynx: Clear. Mucous membranes moist. Cardiovascular: Regular rate and rhythm. No murmurs, gallops, or rubs. Respiratory: Clear to auscultation bilaterally. No wheezes or crackles. Abdomen: Bowel sounds present. Soft, nondistended, nontender. Extremities: No lower extremity edema. Const: Vital Signs, click to edit/add: Vital Signs - 24 hr 04/25/25 21:39 04/25/25 23:00 04/26/25 04:25 Temperature 98.8 F 98.1 F 98.5 F Pulse Rate [Pulse Oximeter] 71 76 70 Respiratory Rate 16 18 20 Blood Pressure [Le ft Arm] 107/73 90/59 L 98/68 Pulse Oximetry 94 94 91 Oxygen Delivery Me thod Room Air Room Air Room Air 04/26/25 07:00 04/26/25 12:21 04/26/25 15:14 Temperature 97.8 F 98 F 98.1 F Pulse Rate [Pulse Oximeter] 74 85 73 Respiratory Rate 18 18 16 Blood Pressure [Le ft Arm] 105/75 127/86 108/74 Pulse Oximetry 95 97 97 Oxygen Delivery Me thod Room Air Room Air Room Air Labs Labs: Laboratory Results - last 24 hr 04/26/25 05:35 WBC 8.80 RBC 5.09 Hgb 14.8 Hct 45.1 MCV 89 MCH 29 MCHC 33 Plt Count 262 Sodium 140 Potassium 4.0 Chloride 109 Carbon Dioxide 22 Anion Gap 9 BUN 27 Creatinine 1.4 Estimated Creat Clear 47.87 Estimated GFR 55 Glucose 87 Calcium 9.3
--- NOTE | 2025-04-26 18:00 | PC.NURSE ---
End of shift [id number]: Pt AxOx4, pleasant, and cooperative with care. Speech is slow and garbled. Pt denies pain during shift. Lidocaine patch to the L hip applied. A1 GB W. Incontinent/continent of the bladder. Taking pill okay whole. Pt appears resting with call light in reach watching television in chair.
[2025-04-26 19:00] VITALS: BP 108/72; PULSE 72; RESP 16; TEMP 36.9; O2SAT 96
[2025-04-26] MEDS: ENOXAPARIN 40 MG/0.4 ML INJ SUBCUT (20:38)
[2025-04-26 23:00] VITALS: BP 93/63; PULSE 84; RESP 16; TEMP 36.6; O2SAT 95
[2025-04-27 02:39] VITALS: BP 115/76; PULSE 71; RESP 16; TEMP 37; O2SAT 95
--- NOTE | 2025-04-27 04:30 | PC.NURSE ---
Shift note: Patient has been in bed throughout the shift. Alert and oriented. He declined all the attempt to either change his brief or assist him to the BR. He continue to a slow and slurred speech. Takes pill whole. Vitally stable.
[2025-04-27 06:46] LABS: Hematocrit 46.1 % (37.0-53.0); Hemoglobin* 14.8 gm/dL (13.5-17.5); Mean Corpuscular HGB Conc 32 gm/dL (32-36); Mean Corpuscular Hemoglobin 29 pg (26-34); Mean Corpuscular Volume 90 fL (80-100); Platelet Count* 252 K/uL (140-440); Red Blood Count 5.14 m/uL (4.30-5.90); White Blood Count* 9.02 K/uL (4.50-11.00)
[2025-04-27 06:50] LABS: Slide Review Reflex No
[2025-04-27 06:57] LABS: Chloride* 110 mmol/L (96-114); Potassium* 4.6 mmol/L (3.6-5.1); Sodium* 138 mmol/L (135-149)
[2025-04-27 07:00] VITALS: BP 98/81; PULSE 71; RESP 16; TEMP 36.6; O2SAT 96
[2025-04-27 07:00] LABS: Anion Gap 9 mEq/L (7-15); Blood Urea Nitrogen* 27 mg/dL (7-30); Carbon Dioxide* 19 mmol/L (20-32); Creatinine* 1.4 mg/dL (0.5-1.5); Est. Creatinine Clearance* 47.87; Estimated Glomerular Filt Rate 55 ml/min
[2025-04-27 07:01] LABS: Calcium* 9.3 mg/dL (8.4-10.6); Glucose* 89 mg/dL (60-115)
--- NOTE | 2025-04-27 07:31 | PM.DS1 ---
DS: Providers Provider Time Seen by Provider: 07:58 Date Seen: 04/27/25 Date of admission: 04/23/25 12:39 Primary care physician: Shonda Olvera CNP Admitting Clinician: Nataly Thorne MD Consults: 04/22/25 13:21 Consult to Occupational Therapy [CONS] Routine Comment: Reason(s) for OT Consult:: Evaluate and Treat Any Restrictions?:: No Restrictions Consult to Physical Therapy [CONS] Routine Comment: Reason(s) for PT Consult:: Evaluate and Treat Any Restrictions?:: No Restrictions Consult to Family Consumer Science Teacher [CONS] Routine Comment: Reason for Consult:: Social Service Consult Discharge Planning Needs 04/23/25 09:25 Consult to Speech Therapy [CONS] Routine Comment: Reason(s) for Speech Consult:: Swallowing Difficulty Comment: intermittent sputtering Attending Physician on discharge: Janeen Vasquez MD Date of Discharge: 04/27/25 DS: Diagnosis Discharge Diagnosis (1) Acute delirium: Status: Acute Problem details: Acute on chronic recurring in setting of acute illness/UTI Lives alone in his own home, POA and chief financial officer are neighbors (Yudi Linder) Monitor senior manager creative services for discharge planning/placement needs - PATIENT DOES NOT WANT TO RETURN TO [facility] 04/26 Delirium improved, still cognitively slowed, continue to monitor 04/27 Delirium resolved, remains cognitively slowed, at baseline (2) Urinary tract infection: Status: Acute Problem details: Acute on chronic recurrent UA cloudy, 3+ LE, negative nitrate, WBC 20 5-50, moderate bacteria Leukocytosis WBC 17.39 with left shift, CRP 8.5 Previous UC 07/30/2024 growing Proteus mirabilis, sensitive to ceftriaxone Continue ceftriaxone as initiated in ED, IVF for 1 L 04/23 Unresolved UTI with persistent leukocytosis requiring continued IV antibiotics. Awaiting UC. BC showing no growth. Delirium improved, cognitively slowed. Requiring 2 assist for ADLs. Will continue ceftriaxone with plan to transition to oral when sensitivities available. Continue therapies. senior manager creative services assisting with discharge needs. 04/24 urine culture growing Proteus mirabilis, sensitive to current ceftriaxone. Leukocytosis resolved, CRP trending down 04/25 Continue ceftriaxone, day 3/10, transition to oral upon discharge 04/26 continue ceftriaxone, day 4, transition to oral upon discharge 04/27 transition to 6 more days of cefdinir BID (3) Gout: Status: Acute Problem details: allopurinol 300mg - last filled on 07/14/24 uric acid pending (4) Acute on chronic kidney failure: Status: Acute Problem details: Creatinine 2.1, GFR 34 Hold hydrochlorothiazide, avoid nephrotoxic medications IVF, recheck in a.m. Creatinine continues to improve, now 1.4, which is his baseline 1.4-1.5. Continue to hold amlodipine and hydrochlorothiazide due to blood pressure is on the low normal side Resolved (5) Chronic kidney disease (CKD) stage G3b/A1, moderately decreased glomerular filtration rate (GFR) between 30-44 mL/min/1.73 square meter and albuminuria creatinine ratio less than 30 mg/g: Status: Chronic Problem details: Baseline creatinine 1.4-1.9, GFR 38-55 (6) Hypokalemia: Status: Acute Problem details: Potassium 3.3, additional 40 mEq ordered for today Continue home dose 20 mEq b.i.d., adjusting as necessary Potassium improved to 3.6, currently on 40 mEq oral potassium supplement b.i.d. (increased from usual home dose of 20 mEq b.i.d.) - 04/25 potassium 3.7 today, continue current supplementation - 04/26 potassium 4 today, continue current supplementation - 04/27 potassium 4.6 today. I ordered a slightly lower supplementation regimen for discharge, 30 mEq BID. (7) History of lacunar cerebrovascular accident (CVA): Status: Chronic Problem details: Uses wheeled walker at home, wheelchair for long distances, right sided weakness - chronic (8) Wernicke-Korsakoff syndrome: Status: Chronic Problem details: -noted in history -Likely at baseline and dementia/cognitive decline. 07/31/24: Patient indicates he has not been drinking alcohol for about 10 years. Patient caregiver and neighbor, Euegnio, corroborates. 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 Free T4 0.75 Outpatient follow-up recommended (11) Hyperlipidemia: Status: Chronic Problem details: Hold statin due to transaminitis (12) Hypertension: Status: Acute Problem details: BP low normal, stop amlodipine, hydrochlorothiazide. Follow BPs at SNF. (13) Transaminitis: Status: Acute Problem details: AST 281/ALT 63 - remains elevated. Possibly in setting of UTI, fall, unreported alcohol use Reports he has not drank alcohol in 10 years No imaging - asymptomatic otherwise Hold statin for now Outpatient follow-up with PCP (14) Patient unsure of advance healthcare directive status: Status: Acute Problem details: Patient reports Eugenio and Yeny Linder have copy of papers - have asked staff to obtain copy Full code for now (15) Left hip pain: Status: Acute Problem details: S/p fall. With weight bearing Hip xray negative for acute fracture Tylenol, lidocaine patch PT as tolerated Consider further imaging if new or worsening symptoms or no resolve 04/27/25 improving DS: Summary Hospital Course Hospital Course: Per H&P: Daren Dozier is a 69 year old male past medical history significant for CKD stage 3, hypertension, hyperlipidemia, gout, history of lacunar CVA, previous alcohol use disorder with cerebellar ataxia due to alcoholism, history of Wernicke-Korsakoff syndrome, recurrent UTIs is admitted to the medical floor from the ED for further management acute UTI with acute delirium and recent fall. Patient is seen on his own, unable to confirm HPI in setting of acute delirium. Oriented to self and place currently. Tells me he fell yesterday while getting ready for bed, walking with his walker. Fell and was too weak to get up on his own. Struck his forehead. Denies losing consciousness. Currently, denies headache or dizziness. Denies neck pain. Denies recent chest pain or shortness of breath. No recent illness. Denies recent fevers or chills. Denies abdominal pain, nausea, vomiting or diarrhea. Denies change in stools. In the ED, found to have an acute UTI. Previous hospitalization in July 2024 was for the same. Admitted for IV antibiotics and therapies. Patient lives in his own home in [facility]. His neighbors Eugenio and Mariza Linder are his POA and chief financial officer. PCP is Dr. Laureano Modi per EMR. History of previous alcohol use, reports not having drank in the past 10 years. Nonsmoker. Delirium and acute renal failure resolved. He is being treated for urinary tract infection and will continue on outpatient antibiotics ED course for that. Overall he is much improved and has been working with therapies. Please see diagnoses above for full details. He is discharged to [facility] today in stable and improved condition. Time Spent with Patient Time attestation: Total time spent providing and/or coordinating discharge services: Today I spent 35 minutes seeing and discharging the patient, reviewing Expanse and EPIC notes/diagnostics/labs, discussing the care plan with our care team that includes social work, PT/OT, pharmacy, RT, retirement and documenting my impressions and plan in the medical record. Exam Narrative: Exam Narrative: General: No acute distress. Awake, alert, oriented. No pallor. No jaundice. Swelling and abrasion noted on left forehead, improving. Oropharynx: Clear. Mucous membranes moist. Cardiovascular: Regular rate and rhythm. No murmurs, gallops, or rubs. Respiratory: Clear to auscultation bilaterally. No wheezes or crackles. Extremities: No lower extremity edema. Const: Vital Signs, click to edit/add: Vital Signs - 24 hr 04/26/25 12:21 04/26/25 15:14 04/26/25 19:00 Temperature 98 F 98.1 F 98.4 F Pulse Rate [Pulse Oximeter] 85 73 72 Respiratory Rate 18 16 16 Blood Pressure [Le ft Arm] 127/86 108/74 108/72 Pulse Oximetry 97 97 96 Oxygen Delivery Me thod Room Air Room Air Room Air 04/26/25 23:00 04/26/25 23:00 04/27/25 02:39 Temperature 98 F 98.6 F Pulse Rate [Pulse Oximeter] 84 84 71 Respiratory Rate 16 16 16 Blood Pressure [Le ft Arm] 93/63 115/76 Pulse Oximetry 95 95 Oxygen Delivery Me thod Room Air Room Air DS: Data Data Completed and Pending Completed studies during hospitalization: 04/22/2025 EKG: Sinus rhythm with first-degree AV block, 95 beats per minute, right bundle-branch block. Ordering Physician: Alma Rosa Montenegro M.D. Date of Service: 04/22/25 Procedure(s): XR chest 2V Accession Number(s): [id number] cc: Shonda JENSEN; Alma Rosa Montenegro M.D.~ For Patients: As a result of the Century Cures Act, medical imaging exams and procedure reports are released immediately into your electronic medical record. You may view this report before your referring provider. If you have questions, please contact your health care provider. Indication: Weakness Technique: Chest 2 views Comparison: Chest x-ray 07/30/2024 Findings/Impression: Cardiovascular and mediastinum: Mild cardiomegaly with aortic tortuosity. Lungs and pleural spaces: Low lung volumes without pleural effusion or pneumothorax. Trace basilar discoid atelectasis. Bones and soft tissues: No significant findings. Dictated by Jovani Urrutia MD @ 04/22/2025 7:56:03 AM (Electronically Signed) Ordering Physician: Alma Rosa Montenegro M.D. Date of Service: 04/22/25 Procedure(s): CT head/brain wo con Accession Number(s): [id number] cc: Shonda JENSEN; Alma Rosa Montenegro M.D.~ For Patients: As a result of the Cures Act, medical imaging exams and procedure reports are released immediately into your electronic medical record. You may view this report before your referring provider. If you have questions, please contact your health care provider. INDICATION: Fall, altered mental status. TECHNIQUE: CT head without contrast. COMPARISON: None. FINDINGS: CSF spaces: Within normal limits for age. Brain parenchyma: Vela-white differentiation is distinct. Low-density within the deep white matter. Old lacunar infarcts within the bilateral basal ganglia and thalami. Skull base and calvarium: Mucous retention cyst within the left sphenoid sinus. The visualized orbits are grossly unremarkable. No skull fractures. IMPRESSION: 1. No calvarial fracture or intracranial bleed. 2. Old bilateral lacunar infarcts with nonspecific white matter disease, likely microangiopathy. Please note that all CT scans at this facility use dose modulation, iterative reconstruction, and/or weight-based dosing when appropriate to reduce radiation dose to as low as reasonably achievable. Dictated by Jovani Urrutia MD @ 04/22/2025 7:36:34 AM (Electronically Signed) Ordering Physician: Shi VAZ Date of Service: 04/23/25 Procedure(s): XR hip LT min 2V Accession Number(s): [id number] cc: Shonda JENSEN; Shi VAZ~ For Patients: As a result of the Cures Act, medical imaging exams and procedure reports are released immediately into your electronic medical record. You may view this report before your referring provider. If you have questions, please contact your health care provider. Indication: Fall left hip pain Technique: AP pelvis and left hip two views Comparison: AP pelvis July 09, 2019 Findings: Stable negative pelvis and left hip. No fractures, deformities or lesions. No new abnormalities. Impression: No acute abnormalities. Dictated by Izaiah Paulino MD @ 04/23/2025 11:37:32 AM (Electronically Signed) Labs on day of discharge: Labs from last 24 hours 04/27/25 06:00 WBC 9.02 RBC 5.14 Hgb 14.8 Hct 46.1 MCV 90 MCH 29 MCHC 32 Plt Count 252 Sodium 138 Potassium 4.6 Chloride 110 Carbon Dioxide 19 L Anion Gap 9 BUN 27 Creatinine 1.4 Estimated Creat Clear 47.87 Estimated GFR 55 Glucose 89 Calcium 9.3 Discharge Plan Discharge Disposition: [facility] Discharge Location: [facility] Date of Admission: 04/23/25 12:39 Attending Provider on Discharge: Janeen Vasquez Primary Care Provider: Shonda Olvera Discharge Medications: New cefdinir 300 mg capsule 300 mg PO BID 6 Days Qty: 12 0RF lidocaine 5 % Adhesive Patch,Medicated 1 patch transdermal Q24H Qty: 30 0RF Continued rosuvastatin 10 mg tablet 10 mg PO QPM Qty: 90 3RF allopurinol 300 mg tablet 300 mg PO DAILY Qty: 90 3RF Changed potassium chloride 10 mEq Capsule, Extended Release 30 meq PO BIDWM Qty: 60 0RF Discontinued hydrochlorothiazide 25 mg tablet 25 mg PO DAILY Qty: 90 3RF amlodipine 10 mg tablet 10 mg PO DAILY Qty: 90 3RF Discharge Orders: Discharge Order (Routine); Ordered 04/27/25 Ordered By: Janeen Vasquez Activity Level: No Restrictions Discharge Diet: Regular Follow Up Appointments: Shonda Olvera, DESIGN TECHNOLOGY PROFESSOR [Primary Care Provider, Family Practice] Forms: [facility] Info Instructions Admit to: SNF Discharge Potential: Poor Length of Stay: >90 days Code Status: Full Code TEDs: N/A Rehab Potential: Fair Therapy: Physical Therapy, Occupational Therapy and Speech Therapy Therapy Orders: Evaluate and Treat Oxygen: No Urinary Catheter: No Lab Orders: BMP in one week, TSH, free T4 in one month Signature: Janeen Vasquez MD
[2025-04-27] MEDS: allopurinoL 300 MG TABLET PO (08:59)
[2025-04-27] MEDS: POTASSIUM CHLORIDE 10 MEQ CAPSULE ER 40 MEQ PO (08:59)
[2025-04-27] MEDS: 0.9 % SODIUM CHLORIDE 250 ml IV (09:44)
[2025-04-27] MEDS: SODIUM CHLORIDE 0.9 % (FLUSH) 10 ML SYRINGE 5 ML IVF (09:51)
[2025-04-27] MEDS: CEFPODOXIME PROXETIL 200 MG TABLET PO (10:10)
[2025-04-27] MEDS: LIDOCAINE 5% PATCH 1 PATCH TRANSDERMA (11:00)
--- NOTE | 2025-04-27 11:18 | PC.NURSE ---
Nursing Care Hours: [id number] pt this shift calm and cooperative, alert and oriented to self and date and situation. C/o pain to buttocks from chair. Relieved by standing and repositioning. VSS. Coughing with meals and taking pills. Pills one at a time with thin liquids. IV leaking with ABX infusion. Infusion stopped and IV removed. PO ABX given per MD order. DC instructions went over with pt and signed. Nurse to nurse completed over the phone. Lidocaine patch applied to L hip prior to discharge. Pt wheeled out in stable condition.
--- NOTE | 2025-04-27 11:36 | PC.SOCIAL ---
Discharge planning: VALENTINO secure emailed updated notes to Elana and [facility] and asked if there was anything else needed prior to discharge. VALENTINO called patient's friend Eugenio and arranged discharge time for 1099. VALENTINO spoke with Elana who inquired about HCD or POA paperwork and if Eugenio would drive patient to appts or if he has the finances to pay. VALENTINO called Eugenio who states he will bring the POA paperwork and that either he will provide transportation or patient has the ability to pay. VALENTINO called Elana and updated her. VALENTINO secure emailed orders to Elana. VALENTINO received email from Elana inquired about PAS completion. VALENTINO sent PAS and informed that VALENTINO had also sent it to Elana's coworker on Sunday. VALENTINO also sent discharge summary. VALENTINO completed Medicare Rights form with patient prior to discharge and provided him with the paper. Patient had no concerns or complaints about discharge.
== END 2025-04-27 10:59 | DRG 690 ==
LOC: ED 08:03 → MEDSURG 15:54
PROVIDERS: Admitting Provider Physician Assistant; Emergency Provider Family Medicine; PCP Registered Nurse; Visit Provider Family Medicine
DX: N39.0 Urinary tract infection, site not specified (principal); N17.9 Acute kidney failure, unspecified; F05 Delirium due to known physiological condition; I12.9 Hypertensive chronic kidney disease with stage 1 through stage 4 chronic kidney disease, or unspecified chronic kidney disease; N18.32 Chronic kidney disease, stage 3b; G31.2 Degeneration of nervous system due to alcohol; F10.26 Alcohol dependence with alcohol-induced persisting amnestic disorder; E87.6 Hypokalemia; M25.552 Pain in left hip; S00.83XA Contusion of other part of head, initial encounter; W19.XXXA Unspecified fall, initial encounter; R74.01 Elevation of levels of liver transaminase levels; Z87.440 Personal history of urinary (tract) infections; I44.0 Atrioventricular block, first degree; I45.10 Unspecified right bundle-branch block; M10.9 Gout, unspecified; E03.9 Hypothyroidism, unspecified; E78.5 Hyperlipidemia, unspecified; Z86.73 Personal history of transient ischemic attack (TIA), and cerebral infarction without residual deficits
CPT/HCPCS: 36415; 70450; 71046; 73502; 80048; 80053; 80076; 81001; 81003; 82077; 82803; 83605; 83690; 83735; 84439; 84443; 84484; 85025; 85027; 86140; 87040; 87086; 92610; 93005; 97110; 97116; 97162; 97165; 97530; 97535; 99285; A9270; G0378; J0696; J1650; J7030; J7050

== ENCOUNTER 2025-05-19 13:33 | Outpatient (CLI) | payer MEDICARE, BC, SELFPAY ==
--- NOTE | 2025-05-19 13:45 | CRLHL7_ITS ---
For Patients: As a result of the Century Cures Act, medical imaging exams and procedure reports are released immediately into your electronic medical record. You may view this report before your referring provider. If you have questions, please contact your health care provider. INDICATION: Delirium. COMPARISON: 04/22/2025. 07/09/2019 TECHNIQUE: Multiplanar T1, T2, FLAIR and diffusion-weighted imaging. FINDINGS: Moderate generalized volume loss. Scattered patchy T2/FLAIR signal hyperintensity within the white matter of both cerebral hemispheres consistent with chronic deep white matter small vessel ischemic changes. No intracranial hemorrhage. Compensatory mild dilatation ventricular system. Intracranial vascular flow voids are preserved. No mass effect. No midline shift. No restricted diffusion to suggest acute ischemia. Scattered foci of susceptibility artifact within both cerebral hemispheres and brainstem are nonspecific but likely represent chronic micro hemorrhages or mineral deposition. Bilateral orbits are unremarkable. Normal appearing sella. Visualized paranasal sinuses and are unremarkable. Small right mastoid effusion. IMPRESSION: 1. No acute intracranial abnormality 2. Moderate generalized cerebral volume loss. Chronic deep white matter small vessel ischemic changes 3. Scattered foci of susceptibility artifact within both cerebral hemispheres and brainstem are nonspecific but likely represent chronic microhemorrhages or mineral deposition 4. Small right mastoid effusion Dictated by Servando Marcum MD @ 05/20/2025 11:58:37 AM (Electronically Signed)
== END 2025-05-19 13:34 | disposition home or self-care (01) ==
PROVIDERS: PCP Registered Nurse; Visit Provider Nurse Practitioner Gerontology
DX: I67.9 Cerebrovascular disease, unspecified (principal); I67.82 Cerebral ischemia; F05 Delirium due to known physiological condition
CPT/HCPCS: 70551

== ENCOUNTER 2025-05-27 10:08 | Outpatient (CLI) | payer MEDICARE, BC, SELFPAY | END 2025-05-27 10:09 | disposition home or self-care (01) | LOC: NFLDREF 10:09 | PROVIDERS: PCP Registered Nurse; Visit Provider Internal Medicine | DX: G31.2 Degeneration of nervous system due to alcohol (principal); F04 Amnestic disorder due to known physiological condition; F10.20 Alcohol dependence, uncomplicated | CPT/HCPCS: 80053 ==